=== PATIENT | female | born 1975 | race Hispanic/Latino ===

== ENCOUNTER → 2019-08-26 09:02 | Outpatient (CLI) | payer BC, SELFPAY ==
[2019-08-26 11:25] LABS: Anion Gap 15 (5-15); BUN 8 mg/dL (7-18); BUN/Creat Ratio 11.8 RATIO (10-20); Calcium,Total 7.8 mg/dL (8.5-10.1); Chloride 96 mmol/L (98-107); Cholesterol 443 mg/dL (200); Creatinine, Serum 0.68 mg/dL (0.55-1.02); EST Glomerular Filtration Rate 99 mL/min (>60); Est Glom Filt Rate - Afr Amer 120 mL/min (>60); Glucose 339 mg/dL (74-106); High Density Lipoprotein 29 mg/dL; Potassium 3.3 mmol/L (3.5-5.1); Sodium Level 131 mmol/L (136-145); Thyroid Stim Hormone (TSH) 2.34 uIU/mL (0.358-3.74); Triglycerides 3397 mg/dL
== END ==
PROVIDERS: Family Provider Family Medicine; PCP Family Medicine; Referring Provider Family Medicine; Visit Provider Family Medicine
DX: Z00.00 Encounter for general adult medical examination without abnormal findings (principal)
CPT/HCPCS: 36415; 80048; 80061; 82306; 84443

== ENCOUNTER → 2021-01-28 08:21 | Outpatient (CLI) | payer SELFPAY ==
[2021-01-28 10:37] LABS: Anion Gap 9 (5-15); BUN 12 mg/dL (7-18); BUN/Creat Ratio 18.7 RATIO (10-20); Calcium,Total 8.9 mg/dL (8.5-10.1); Chloride 100 mmol/L (98-107); Cholesterol 196 mg/dL (200); Creatinine, Serum 0.64 mg/dL (0.55-1.02); EST Glomerular Filtration Rate 105 mL/min (>60); Est Glom Filt Rate - Afr Amer 127 mL/min (>60); Glucose 333 mg/dL (74-106); High Density Lipoprotein 33 mg/dL; Potassium 4.2 mmol/L (3.5-5.1); Sodium Level 137 mmol/L (136-145); Triglycerides 631 mg/dL
[2021-01-28 10:42] LABS: Microalbumin,Random Urine 19.5 mg/L (NO RANGE EST.); Microalbumin:Creatinine Ratio 33.8 mg/g CRE (<30 mg/g CRE)
== END ==
PROVIDERS: PCP Family Medicine; Visit Provider Family Medicine
DX: E11.9 Type 2 diabetes mellitus without complications (principal)
CPT/HCPCS: 36415; 80048; 80061; 82043; 82570

== ENCOUNTER 2021-08-08 16:43 | Emergency (ER) | payer SELFPAY ==
[2021-08-08 16:44] VITALS: BP 120/95; PULSE 95; RESP 16; TEMP 35.4; O2SAT 100; BMI 26.5
--- NOTE | 2021-08-08 17:07 | EKG12_ITS ---
Test Reason : CP Blood Pressure : / mmHG Vent. Rate : 081 BPM Atrial Rate : 081 BPM P-R Int : 152 ms QRS Dur : 062 ms QT Int : 352 ms P-R-T Axes : 051 032 010 degrees QTc Int : 408 ms Normal sinus rhythm Low voltage QRS Septal infarct , age undetermined , cannot be excluded Abnormal ECG Confirmed by YOSVANY HEREDIA, DEBBY ([id number]), production editor YOLIE WANG ([id number]) on 08/09/2021 10:48:53 AM Referred By: Confirmed By:DEBBY BAR MD
--- NOTE | 2021-08-08 17:07 | RAD_ITS ---
HISTORY: chest pain EXAMINATION/TECHNIQUE: XR Chest 1 View: Portable upright AP chest x-ray COMPARISON: None FINDINGS: LINES/DEVICES: None. LUNGS: No consolidation, edema or effusion. No pneumothorax. MEDIASTINUM AND CARDIOVASCULAR STRUCTURES: Cardiac silhouette not enlarged. Central airways and mediastinal contour are unremarkable. BONES AND SOFT TISSUES: No acute bony abnormalities. RAD/Chest 1 View (Portable) IMPRESSION: No radiographic evidence of acute cardiopulmonary disease. at 1814 Reported and signed by: Rk Marrero MD Electronically Signed: Rk Marrero MD at 18:13 EST Tel , Service support ,
[2021-08-08 17:10] VITALS: O2SAT 98
--- NOTE | 2021-08-08 17:10 | NURSING ---
NO OLD EKGS
[2021-08-08 17:34] LABS: Absolute Lymphocyte Count 2.55 X10^3/uL (0.83-4.51); Absolute Neutrophil Count 4.6 X10^3/uL (2.0-7.7); Basophil# 0.02 X10^3/uL; Basophil% 0.3 % (0-1); Eosinophil# 0.05 X10^3/uL; Eosinophils% 0.7 % (0-5); Hematocrit 42.2 % (37-47); Hemoglobin 14.7 g/dL (12.0-15.0); Lymphocyte # 2.55 X10^3/ul (0.83-4.51); Lymphocyte % 33.4 % (19-41); Mean Corp Hgb Conc 34.8 g/dL (32-36); Mean Corpuscular Hgb 29.3 pg (27.0-32.0); Mean Corpuscular Volume 84.2 fL (81-99); Mean Platelet Vol. 9.9 fl (6.2-12.0); Monocyte# 0.39 X10^3/uL; Monocyte% 5.1 % (0-10); NRBC Flagged by Analyzer 0 % (0-5); Neutrophil # 4.61 X10^3/uL (2.7-7.7); Neutrophil % 60.2 % (47-70); Platelet Count 290 K/mm3 (150-450); RBC Distribution Width SD 36.4 fl (35.1-43.9); Red Blood Count 5.01 M/mm3 (4.2-5.4); White Blood Count 7.6 K/mm3 (4.4-11.0)
[2021-08-08 17:42] LABS: Anion Gap 10 (5-15); BUN 12 mg/dL (7-18); BUN/Creat Ratio 19.1 RATIO (10-20); Calcium,Total 9.2 mg/dL (8.5-10.1); Chloride 99 mmol/L (98-107); Creatinine, Serum 0.63 mg/dL (0.55-1.02); EST Glomerular Filtration Rate 108 mL/min (>60); Est Glom Filt Rate - Afr Amer 131 mL/min (>60); Estimated Creatinine Clearance 87.31 ml/min; Glucose 351 mg/dL (74-106); Potassium 3.7 mmol/L (3.5-5.1); Sodium Level 134 mmol/L (136-145); Troponin-I HS 3 pg/mL (3.0-54.0)
--- NOTE | 2021-08-08 18:06 | ED.VIS.CHEST ---
HPI History of Present Illness Chief Complaint: Chest Pain Narrative Narrative: 45-year-old female with history of diabetes and high cholesterol presenting with sharp chest pain retrosternally which does not radiate. She does admit to some shortness of breath with this. The pain has been constant for 3 days. Patient has no history of DVT/PE. She has not had any recent travel or surgery. No recent immobilization. No history of DVT or PE, no history of cancer in her. She is not on control or exogenous hormones. [facility] Medical History Diabetes Home Medications metformin 1,000 mg PO DAILY 08/08/21 [History Last Taken Unknown] rosuvastatin 20 mg PO DAILY 08/08/21 [History Last Taken Unknown] Allergy/AdvReac Type Severity Reaction Status Date / Time No Known Allergies Allergy Verified 08/08/21 16:47 Surgical History History of cholecystectomy Social History Smoking Status: Never smoker ROS ROS ED Constitutional Constitutional ED: Denies chills, fever(s) or weight loss Eyes Eyes: Denies blurry vision or change in vision ENT ENT ED: Denies rhinorrhea or sore throat Cardiovascular Cardiovascular: Reports as per HPI Respiratory/Chest Respiratory/Chest: Reports dyspnea; Denies cough or dyspnea on exertion Gastrointestinal Gastrointestinal: Denies abdominal pain, nausea or vomiting Genitourinary Genitourinary ED: Denies dysuria or hematuria Musculoskeletal Musculoskeletal: Denies arthralgias or myalgias Integumentary Denies Abrasions or rash Neurologic Neurologic: Denies headache(s) or paresthesias Psychiatric Psychiatric: Denies anxiety or depression EXAM Physical Exam Const Vital Signs: 08/08/21 16:44 08/08/21 17:10 08/08/21 19:06 Temperature 95.8 F L Temperature Source Temporal Pulse Rate 95 83 Respiratory Rate 16 18 Blood Pressure 120/95 H 113/75 Blood Pressure Mean 103 87 Pulse Ox 100 98 98 Oxygen Delivery Method Room Air Room Air Positive obese General Appearance ED: NAD; Negative for pallor Nutritional Appearance: obese HEENT Reports moist mucous membranes normocephalic and atraumatic Eyes PERRL and EOMs intact bilaterally Resp normal respiratory effort Effort and Inspection: respiratory distress Cardio regular rate and regular rhythm Extremity normal to inspection General Extremety ED: Negative for edema or tenderness General Extremity: Negative for edema Neuro oriented x3 Sensorium / Orientation: awake and alert Psych mental status grossly normal Skin General Skin Exam: Negative for jaundice or pallor Heart Score History: Slightly/Non-Suspicious ECG: Normal Age: </= 45 years Risk Factors: 1 or 2 Risk Factors Troponin: </= Normal Limit Score: 1 MDM MDM MDM Narrative Medical decision making narrative: Patient presenting with sharp chest pain in the upper chest wall on the left without radiation. EKG is performed and on my interpretation shows a normal sinus rhythm with a potential rate of 81 bpm without sign of ischemic change. Chest x-ray on my interpretation shows no acute cardiopulmonary process and the radiologist does agree. CBC and CMP are unremarkable with exception of elevated glucose at 351. D-dimer is negative. High-sensitivity troponin is 3 and since he has been having pain constantly for 3 days this rules her out for ACS. I feel the patient was stable for discharge at this time. She can follow-up with her PCP Dr. Noel. She is given return precautions. Impression: 1. Chest pain noncardiac Lab Data Labs: Laboratory Results - last 24 hr 08/08/21 08/08/21 08/08/21 17:15 17:15 17:15 WBC 7.6 RBC 5.01 Hgb 14.7 Hct 42.2 MCV 84.2 MCH 29.3 MCHC 34.8 RDW Std Deviation 36.4 RDW Coeff of Joseluis 12.0 Plt Count 290 MPV 9.9 Immature Gran % (Auto) 0.300 Neut % (Auto) 60.2 Lymph % (Auto) 33.4 [place] % (Auto) 5.1 Eos % (Auto) 0.7 Baso % (Auto) 0.3 Absolute Neuts (auto) 4.6 Absolute Lymphs (auto) 2.55 Nucleated RBC % 0 PT 12.2 INR 1.0 D-Dimer Quant (PE/DVT) Sodium 134 L Potassium 3.7 Chloride 99 Carbon Dioxide 25.0 Anion Gap 10 BUN 12 Creatinine 0.63 Estim Creat Clear Calc 87.31 Est GFR (MDRD) Af Amer 131 Est GFR (MDRD) Non-Af 108 BUN/Creatinine Ratio 19.1 Glucose 351 H Calcium 9.2 Troponin I High Sens 3 12/16/21 17:15 WBC RBC Hgb Hct MCV MCH MCHC RDW Std Deviation RDW Coeff of Joseluis Plt Count MPV Immature Gran % (Auto) Neut % (Auto) Lymph % (Auto) [place] % (Auto) Eos % (Auto) Baso % (Auto) Absolute Neuts (auto) Absolute Lymphs (auto) Nucleated RBC % PT INR D-Dimer Quant (PE/DVT) < 0.27 L Sodium Potassium Chloride Carbon Dioxide Anion Gap BUN Creatinine Estim Creat Clear Calc Est GFR (MDRD) Af Amer Est GFR (MDRD) Non-Af BUN/Creatinine Ratio Glucose Calcium Troponin I High Sens Radiography Diagnostic Testing: Clinical Impression(s) from Imaging Studies Chest X-Ray 08/08/21 17:07 IMPRESSION: No radiographic evidence of acute cardiopulmonary disease. at 1814 Reported and signed by: Rk Marrero MD Electronically Signed: Rk Marrero MD at 18:13 EST Tel , Service support , Discharge Plan Triage Chief Complaint: Chest Pain ED Provider: Chepe Poon Dx/Rx/DC Orders Instructions: ED Chest Pain, Noncardiac Prescriptions: No Action metformin 1,000 mg tablet 1,000 mg PO DAILY RF: 0 rosuvastatin 20 mg tablet 20 mg PO DAILY RF: 0 Primary Care Provider: Esteban Noel Referrals: Esteban Noel MD [Primary Care Provider] - Disposition Disposition: Home, Self Care
[2021-08-08 18:10] LABS: Prothrombin Time (Protime)PT. 12.2 SECONDS (11.7-14.9)
[2021-08-08 18:51] LABS: D-Dimer Quantitative (DVT/PE) < 0.27 FEU/ug/m (0.27-0.49)
[2021-08-08 19:06] VITALS: BP 113/75; PULSE 83; RESP 18; O2SAT 98
== END 2021-08-08 19:49 | disposition home or self-care (01) ==
PROVIDERS: Emergency Provider Student in an Organized Health Care Education/Training Program; PCP Family Medicine
DX: R07.89 Other chest pain (principal); E11.9 Type 2 diabetes mellitus without complications; E78.00 Pure hypercholesterolemia, unspecified; Z79.84 Long term (current) use of oral hypoglycemic drugs; Z79.899 Other long term (current) drug therapy
CPT/HCPCS: 71045; 80048; 84484; 85025; 85379; 85610; 87426; 93005; 99283

== ENCOUNTER 2021-08-29 11:17 | Outpatient (CLI) | payer MEDICARE, SELFPAY | END 2021-08-29 23:59 | disposition short-term general hospital (02) | LOC: LABSPEC 11:18 | PROVIDERS: PCP Family Medicine; Referring Provider Physician Assistant; Visit Provider Physician Assistant | DX: U07.1 COVID-19 (principal) | CPT/HCPCS: 87635; U0003; U0005 ==

== ENCOUNTER 2021-11-14 13:05 | Emergency (ER) | payer BC, SELFPAY ==
[2021-11-14 13:06] VITALS: BP 114/74; PULSE 120; RESP 16; TEMP 36.6; O2SAT 98; BMI 25.6
[2021-11-14 13:07] VITALS: BP 114/74; PULSE 120; RESP 16; TEMP 36.6; O2SAT 98
--- NOTE | 2021-11-14 15:05 | CT_ITS ---
EXAM: CT ABDOMEN AND PELVIS WITH INTRAVENOUS CONTRAST CLINICAL INDICATION: upper abd pain TECHNIQUE: Helically acquired images were obtained of the abdomen and pelvis with intravenous contrast. This CT exam was performed using one or more of the following dose reduction techniques: automated exposure control, adjustment of the mA and/or kV according to patient size, and/or use of iterative reconstruction technique. This report was created using [employer] report generation technology. CONTRAST: IV 100mL Isovue-300 COMPARISON: None. FINDINGS: LOWER THORAX: Unremarkable. Lung bases are clear. No cardiomegaly. No significant pericardial effusion. ABDOMEN: LIVER: Unremarkable. Homogeneous. No focal mass. GALLBLADDER AND BILE DUCTS: Gallbladder is surgically absent. No intra- or extrahepatic biliary ductal dilation. PANCREAS: Unremarkable. No focal cystic or solid mass. SPLEEN: Unremarkable. Normal size without focal cystic or solid mass. ADRENALS: Unremarkable. No nodules. KIDNEYS AND URETERS: Unremarkable. Normal renal size and position. No hydronephrosis. STOMACH AND BOWEL: Unremarkable. No stomach or bowel distention. No focal inflammatory change. PELVIS: APPENDIX: No evidence of acute appendicitis. BLADDER: Unremarkable. REPRODUCTIVE: Unremarkable as visualized. No mass. ABDOMEN and PELVIS: INTRAPERITONEAL SPACE: Unremarkable. No ascites or other fluid collection. No free air. BONES/JOINTS: Unremarkable. No suspicious lytic or blastic abnormality. SOFT TISSUES: Unremarkable. No discrete abdominal or pelvic wall hernia. VASCULATURE: Unremarkable. Abdominal aorta is normal in caliber. LYMPH NODES: Unremarkable. No enlarged lymph nodes. CT/Abdomen/Pelvis W IV Cont ONLY IMPRESSION: No acute findings in the abdomen or pelvis. Electronically Signed: Dimple Toro MD at 16:32 EDT Reading Location ID and State: [id number] / Tel , Service support ,
--- NOTE | 2021-11-14 15:07 | ED.VIS.GI ---
HPI HPI - GI History of Present Illness Chief Complaint: Abd Pain Informant: patient Abdominal Pain/Flank Pain Onset: Days Context: Gradual Onset Timing: Continuous Quality: Aching Location: Epigastric Current Severity: Mild Maximum Severity: Moderate Worsened by: Nothing Relieved by: Nothing Nausea/Vomiting/Emesis GI Symptom: Positive for Nausea and Vomiting Onset: Days Severity: Mild Diarrhea/Melena/Hematochezia GI Symptom: Positive for Diarrhea Onset: Days Stool Quality: Positive for Loose Severity: Mild Narrative Narrative: 46-year-old female history of diabetes prior cholecystectomy and prior C-sections. Complain of abdominal pain with nausea vomiting diarrhea for about a week. Says nausea vomiting diarrhea is improved but he still has the pain. Denies any melena or hematemesis. No fever. Has had pain like this before but is never been evaluated. She denies any trauma. She denies any dysuria. Prior similar symptoms: Yes Recent Illness/Hospitalization: No PFSH PFSH Medical History Diabetes Home Medications metformin 1,000 mg PO DAILY 08/08/21 [History Last Taken Unknown] rosuvastatin 20 mg PO DAILY 08/08/21 [History Last Taken Unknown] pantoprazole [Protonix] 40 mg PO DAILY #30 tab 11/14/21 [Rx Last Taken Unknown] Allergy/AdvReac Type Severity Reaction Status Date / Time No Known Allergies Allergy Verified 11/14/21 13:08 Surgical History History of cholecystectomy Social History Smoking Status: Never smoker ROS ROS ED ROS Narrative Abdominal pain. Nausea vomiting and diarrhea. Review of Systems ROS Unobtainable: Denies due to encephalopathy Constitutional Constitutional ED: Denies fever(s) ENT ENT ED: Denies ear pain Cardiovascular Cardiovascular: Denies chest pain Respiratory/Chest Respiratory/Chest: Denies dyspnea Gastrointestinal Gastrointestinal: Reports abdominal pain, diarrhea, nausea and vomiting; Denies constipation or melena Genitourinary Genitourinary ED: Denies dysuria Musculoskeletal Musculoskeletal: Denies myalgias Integumentary Denies rash Neurologic Neurologic: Denies headache(s) Psychiatric Psychiatric: Denies depression Endocrine Endocrinology: Denies polyuria Hematologic/Lymphatic Hematologic/Lymphatic: Denies easy bruising Allergic/Immunologic Allergic/Immunologic ED: Denies urticaria EXAM Physical Exam Narrative Exam Narrative: 46-year-old female no acute distress. Vital signs stable afebrile does not look septic or toxic. H EENT exam unremarkable. Neck nontender no lymphadenopathy. Lungs clear to auscultation bilaterally. Heart tachycardic rate about 110 no murmur. Abdomen soft nondistended normal bowel sounds no peritoneal signs. Diffusely tender mostly in the epigastric region. No hernia or mass no obstruction. No pulsatile mass. Moving all 4 extremities. Nontender no edema. Normal motor strength. Back nontender. Neurologically she is awake and alert. Const Vital Signs: 11/14/21 13:06 11/14/21 13:07 11/14/21 15:41 Temperature 97.8 F 97.8 F Temperature Source Temporal Temporal Pulse Rate 120 H 120 H 111 H Respiratory Rate 16 16 18 Blood Pressure 114/74 114/74 102/64 Blood Pressure Mean 87 87 76 Pulse Ox 98 98 95 Oxygen Delivery Method Room Air Room Air Room Air Positive well nourished and well developed; Negative for obese, cachectic, contractures or unkempt General Appearance ED: well developed and NAD; Negative for unkempt, cachectic, contractures or pallor Nutritional Appearance: Negative for cachectic or obese HEENT Reports moist mucous membranes normocephalic and atraumatic; Negative for trauma or tenderness Eyes PERRL and EOMs intact bilaterally Neck no lymphadenopathy, supple and no JVD General: Negative for tenderness Resp normal respiratory effort and clear to auscultation bilaterally Auscultation: Negative for rales, rhonchi or wheezes Cardio regular rhythm, S1 normal heart sound, S2 normal heart sound and no murmurs; Negative for regular rate Rate: tachycardic GI non-distended and no masses; Negative for non-tender Inspection: Negative for abdominal distention Auscultation: normoactive bowel sounds; Negative for hyperactive bowel sounds or hypoactive bowel sounds Palpation: soft and tender; Negative for guarding, rigid or rebound tenderness present Back/Spine no CVA tenderness General Back: Negative for CVA tenderness Cervical Spine: Negative for cervical spine tenderness Thoracic Spine / Upper Back: Negative for thoracic spinal tenderness Extremity full ROM General Extremety ED: Negative for edema or tenderness General Extremity: Negative for edema Neuro CN's II-XII intact bilaterally and moves all extremities Sensorium / Orientation: alert, oriented to person, oriented to place and oriented to time; Negative for orientation impaired, confused, lethargic or stuporous Motor Exam: strength 5/5 throughout Psych mental status grossly normal and thought process normal Appearance: Negative for unkempt Mood & Affect: Negative for depressed or tearful Skin no wounds General Skin Exam: Negative for jaundice or pallor Lesions: no lesions Rashes: no rashes MDM MDM MDM Narrative Medical decision making narrative: 46-year-old female with diffuse abdominal pain primarily epigastric. Consider pancreatitis versus gastritis etiologies. CAT scan labs pending. Treated with morphine and Zofran for pain and nausea and IV fluids. Repeat exam patient is doing well at 4:58 PM. Abdomen is benign. Her labs and CAT scan are unremarkable. She will be started on Protonix for possible gastritis. Follow-up with her primary care physician. Lab Data Attestation: I reviewed the patient's lab results. Lab results narrative: CBC H&H 14 and 40. Electrolytes sodium 134. Potassium 3.4. Gap of 8. BUN and creatinine of 14 and 0.6. Liver enzymes show an elevated AST of 161 ALT of 112 alk phos of 185. Total bilirubin is normal. Lipase normal 62. test negative. Labs: Laboratory Results - last 24 hr 11/14/21 11/14/21 11/14/21 15:25 15:25 15:25 WBC 6.8 RBC 4.82 Hgb 14.1 Hct 40.9 MCV 84.9 MCH 29.3 MCHC 34.5 RDW Std Deviation 38.4 RDW Coeff of Joseluis 12.5 Plt Count 254 MPV 9.5 Immature Gran % (Auto) 0.300 Neut % (Auto) 82.6 H Lymph % (Auto) 13.0 L [place] % (Auto) 3.9 Eos % (Auto) 0.1 Baso % (Auto) 0.1 Absolute Neuts (auto) 5.6 Absolute Lymphs (auto) 0.88 Nucleated RBC % 0 Sodium 134 L Potassium 3.4 L Chloride 97 L Carbon Dioxide 29.0 Anion Gap 8 BUN 14 Creatinine 0.67 Estim Creat Clear Calc 81.22 Est GFR (MDRD) Af Amer 121 Est GFR (MDRD) Non-Af 100 BUN/Creatinine Ratio 21.0 H Glucose 256 H Calcium 8.7 Total Bilirubin 0.60 AST 161 H ALT 112 H Alkaline Phosphatase 185 H Total Protein 7.8 Albumin 3.8 Globulin 4.0 Albumin/Globulin Ratio 1.0 Lipase 62 L Serum , Qual NEGATIVE Radiography Diagnostic Testing: Clinical Impression(s) from Imaging Studies Abdomen/Pelvis CT 11/14/21 15:05 IMPRESSION: No acute findings in the abdomen or pelvis. Electronically Signed: Dimple Toro MD at 16:32 EDT , Discharge Plan Triage Chief Complaint: Abd Pain ED Provider: Liu Graham Dx/Rx/DC Orders Clinical Impression: Abdominal pain, Gastritis Instructions: ED Abdominal Pain Unkn Cause Fem, ED Gastritis (Adult) Prescriptions: New pantoprazole [Protonix] 40 mg tablet,delayed release (DR/EC) 40 mg PO DAILY Qty: 30 RF: 0 No Action metformin 1,000 mg tablet 1,000 mg PO DAILY RF: 0 rosuvastatin 20 mg tablet 20 mg PO DAILY RF: 0 Primary Care Provider: Esteban Noel Referrals: Esteban Noel MD [Primary Care Provider] - 1 Week if not improving Activity Restrictions/Additional Instructions: Your labs and CAT scan today were normal. This may be secondary to gastritis. Take the medication Protonix once a day and follow-up with your doctor if not improving. Disposition Disposition: Home, Self Care
[2021-11-14] MEDS: Ondansetron 4 MG/2 ML Vial IV (15:34)
[2021-11-14] MEDS: Morphine 4 MG/ML Syringe 6 MG IV (15:34)
[2021-11-14] MEDS: 0.9% Normal Saline 1,000 ML 1000 ML IV (15:35)
[2021-11-14 15:41] VITALS: BP 102/64; PULSE 111; RESP 18; O2SAT 95
[2021-11-14 15:44] LABS: Absolute Lymphocyte Count 0.88 X10^3/uL (0.83-4.51); Absolute Neutrophil Count 5.6 X10^3/uL (2.0-7.7); Basophil# 0.01 X10^3/uL; Basophil% 0.1 % (0-1); Eosinophil# 0.01 X10^3/uL; Eosinophils% 0.1 % (0-5); Hematocrit 40.9 % (37-47); Hemoglobin 14.1 g/dL (12.0-15.0); Lymphocyte # 0.88 X10^3/ul (0.83-4.51); Mean Corp Hgb Conc 34.5 g/dL (32-36); Mean Corpuscular Hgb 29.3 pg (27.0-32.0); Mean Corpuscular Volume 84.9 fL (81-99); Mean Platelet Vol. 9.5 fl (6.2-12.0); Monocyte# 0.26 X10^3/uL; Monocyte% 3.9 % (0-10); NRBC Flagged by Analyzer 0 % (0-5); Neutrophil # 5.57 X10^3/uL (2.7-7.7); Neutrophil % 82.6 % (47-70); Platelet Count 254 K/mm3 (150-450); RBC Distribution Width CV 12.5 % (11.6-14.6); RBC Distribution Width SD 38.4 fl (35.1-43.9); Red Blood Count 4.82 M/mm3 (4.2-5.4); White Blood Count 6.8 K/mm3 (4.4-11.0)
[2021-11-14 15:53] LABS: Internal QC Validated? YES +Cl - CLEAR BKGD; Pregnancy, Serum, hCG Quali. NEGATIVE Negative
[2021-11-14 16:00] LABS: AST(SGOT) 161 U/L (15-37); Alanine Aminotransfer ALT/SGPT 112 U/L (13-56); Albumin, Serum 3.8 g/dL (3.2-5.0); Alkaline Phosphatase 185 U/L (45-117); Anion Gap 8 (5-15); BUN 14 mg/dL (7-18); Calcium,Total 8.7 mg/dL (8.5-10.1); Chloride 97 mmol/L (98-107); Creatinine, Serum 0.67 mg/dL (0.55-1.02); EST Glomerular Filtration Rate 100 mL/min (>60); Est Glom Filt Rate - Afr Amer 121 mL/min (>60); Estimated Creatinine Clearance 81.22 ml/min; Glucose 256 mg/dL (74-106); Lipase 62 U/L (73-393); Potassium 3.4 mmol/L (3.5-5.1); Protein, Total 7.8 g/dL (6.4-8.2); Sodium Level 134 mmol/L (136-145)
[2021-11-14 17:02] LABS: Bacteria 0 SEEN /hpf (None Seen); Mucous, Urine 0 SEEN /hpf (<or=2+); Red Blood Cells-Urine 0 SEEN /hpf (0-5); White Blood Cells 0 SEEN /hpf (0-5)
[2021-11-14 17:07] LABS: Color, Urine Yellow (Yellow); Glucose, Dipstick 1000 mg/dl (Normal); Ketone-Dipstick 5 mg/dl (Negative); Leukocyte Esterase-Dipstick Negative /ul (Negative); Nitrite-Dipstick Negative (Negative); Occult Blood-Urine Negative /ul (Negative); Protein-Dipstick 15 mg/dl (Negative); Urine Bilirubin Dipstick Negative (Negative); Urine Clarity Sl. Cloudy (Clear); Urine Urobilinogen 4 mg/dl (Normal)
[2021-11-14 17:11] LABS: Squamous Epithelial Cells - UA 0-5 SEEN /hpf (5-10)
[2021-11-14 17:13] VITALS: BP 106/66; PULSE 97; RESP 18; O2SAT 97
== END 2021-11-14 17:18 | disposition home or self-care (01) ==
PROVIDERS: Emergency Provider Emergency Medicine; PCP Family Medicine; Visit Provider Emergency Medicine
DX: K29.70 Gastritis, unspecified, without bleeding (principal); E11.9 Type 2 diabetes mellitus without complications; R10.13 Epigastric pain; Z79.84 Long term (current) use of oral hypoglycemic drugs
CPT/HCPCS: 74177; 80053; 81001; 83690; 84703; 85025; 96361; 96374; 96375; 99285; J7030; Q9967; A4216; J2405

== ENCOUNTER 2021-11-15 11:24 | Outpatient (CLI) | payer BC, SELFPAY ==
[2021-11-15 13:03] LABS: HIV - WCH Non-Reactive (Nonreactive); Syphilis Antibodies Non-reactive
[2021-11-15 13:34] LABS: Chlamydia Trachomatis by PCR Negative (Negative); Neisserai gonorrhoeae by PCR Negative (Negative); Probe Check PASS; Sample Adequacy Control PASS; Specimen Processing Control PASS
[2021-11-16 09:10] LABS: HSV 2 IgG 7.55 index (0.00-0.90)
== END 2021-11-15 23:59 | disposition home or self-care (01) ==
LOC: MFPLAB 11:25
PROVIDERS: PCP Family Medicine; Referring Provider Family Medicine; Visit Provider Family Medicine
DX: Z20.2 Contact with and (suspected) exposure to infections with a predominantly sexual mode of transmission (principal)
CPT/HCPCS: 36415; 86695; 86696; 86703; 86780; 87491; 87591

== ENCOUNTER → 2023-04-20 | Outpatient (CLI) | payer SELFPAY | END | disposition home or self-care (01) | LOC: LABSPEC 15:34 | PROVIDERS: PCP Family Medicine; Referring Provider Family Medicine; Visit Provider Family Medicine | DX: L03.90 Cellulitis, unspecified (principal); L02.91 Cutaneous abscess, unspecified | CPT/HCPCS: 87070; 87077; 87186; 87205 ==

== ENCOUNTER → 2023-05-29 | Outpatient (CLI) | payer BC, SELFPAY ==
[2023-05-29 18:34] LABS: Anion Gap 6 (5-15); BUN 14 mg/dL (7-18); BUN/Creat Ratio 19.8 RATIO (10-20); Calcium,Total 9.1 mg/dL (8.5-10.1); Chloride 97 mmol/L (98-107); Cholesterol 239 mg/dL (200); Creatinine, Serum 0.71 mg/dL (0.55-1.02); EST Glomerular Filtration Rate 93 mL/min (>60); Est Glom Filt Rate - Afr Amer 113 mL/min (>60); Glucose 444 mg/dL (74-106); High Density Lipoprotein 35 mg/dL; Potassium 4.2 mmol/L (3.5-5.1); Sodium Level 133 mmol/L (136-145); Triglycerides 863 mg/dL
== END | disposition home or self-care (01) ==
LOC: MFPLAB 16:14
PROVIDERS: PCP Family Medicine; Visit Provider Family Medicine
DX: E11.9 Type 2 diabetes mellitus without complications (principal)
CPT/HCPCS: 36415; 80048; 80061

== ENCOUNTER → 2023-09-01 | Outpatient (CLI) | payer OTHER, SELFPAY ==
[2023-09-01 10:38] LABS: Hemoglobin A1c 8.5 % (3.8-5.6)
[2023-09-01 10:47] LABS: Anion Gap 9 (5-15); BUN 17 mg/dL (7-18); BUN/Creat Ratio 28.4 RATIO (10-20); Calcium,Total 9.1 mg/dL (8.5-10.1); Chloride 103 mmol/L (98-107); Cholesterol 275 mg/dL (200); EST Glomerular Filtration Rate 113 mL/min (>60); Est Glom Filt Rate - Afr Amer 137 mL/min (>60); Glucose 196 mg/dL (74-106); High Density Lipoprotein 36 mg/dL; Potassium 4.2 mmol/L (3.5-5.1); Sodium Level 139 mmol/L (136-145); Triglycerides 961 mg/dL
[2023-09-01 10:49] LABS: Microalbumin,Random Urine 20.3 mg/L (NO RANGE EST.); Microalbumin:Creatinine Ratio 22.5 mg/g CRE (<30 mg/g CRE)
== END | disposition home or self-care (01) ==
PROVIDERS: PCP Family Medicine; Referring Provider Family Medicine; Visit Provider Family Medicine
DX: E11.9 Type 2 diabetes mellitus without complications (principal)
CPT/HCPCS: 36415; 80048; 80061; 82043; 82570; 83036

== ENCOUNTER 2023-10-16 07:52 | Emergency (ER) | payer OTHER, SELFPAY ==
[2023-10-16 07:52] VITALS: BP 121/76; PULSE 122; RESP 20; TEMP 36.8; O2SAT 98; BMI 27.1
--- NOTE | 2023-10-16 07:55 | EKG12_ITS ---
Test Reason : CP Blood Pressure : / mmHG Vent. Rate : 114 BPM Atrial Rate : 114 BPM P-R Int : 142 ms QRS Dur : 074 ms QT Int : 322 ms P-R-T Axes : 054 019 030 degrees QTc Int : 443 ms Sinus tachycardia Otherwise normal ECG Confirmed by TASHI HEREDIA, MADALYN ([id number]), health editor YOLIE WANG ([id number]) on 10/16/2023 1:10:24 PM Referred By: BB Confirmed By:MADALYN AKINS MD
--- NOTE | 2023-10-16 08:02 | ED.VIS.CHEST ---
HPI History of Present Illness Chief Complaint: Chest Pain Informant: patient Onset/Context/Timing Onset: Today and Hours Activity at onset: gradual Timing: Continuous Quality: Positive for Dull Location: Substernal Current Severity: Mild Maximum Severity: Mild Relieved By: Nothing Associated Symptoms: Negative for Nausea, Vomiting, Diaphoresis, Dyspnea, Cough, Fever, Lightheadedness, Acid Reflux or Palpitations Narrative Narrative: 48-year-old female past medical history of diabetes and high triglycerides. No prior cardiac history. No history of DVT or PE risk factors. Denies hemoptysis. No pleuritic pain. No leg pain or swelling. No recent travel, surgery or immobilization. They states she was just getting ready for work this morning around 6 AM and developed dull midsternal chest discomfort. No radiation to her back neck or jaw. No dyspnea. No nausea or diaphoresis. She had this another time had a negative cardiac workup. She does not believe she is ever had a stress test or heart cath. She denies any recent exertional chest pain or exertional dyspnea. 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 Prior Similar Symptoms: Yes Recent Illness/Hospitalization: No CVD Risk Factors: Positive for Diabetes; Negative for Hypertension PE Risk Factors: Negative for Recent Travel/Surgery, Recent Immobilization, Prior DVT or PE, Cancer or OCP + Smoking + >/=35 TAD Risk Factors: Negative for Marfan's Syndrome [facility] Medical History Diabetes Home Medications metformin 1,000 mg tablet 1,000 mg PO DAILY 08/08/21 [History Last Taken Unknown] rosuvastatin 20 mg tablet 20 mg PO DAILY 08/08/21 [History Last Taken Unknown] pantoprazole 40 mg tablet,delayed release (Protonix) 40 mg PO DAILY #30 tabs 11/14/21 [Rx Last Taken Unknown] Allergy/AdvReac Type Severity Reaction Status Date / Time No Known Allergies Allergy Verified 11/14/21 13:08 Surgical History History of cholecystectomy Social History Smoking Status: Never smoker ROS ROS ED ROS Narrative Denies recent illness. Review of Systems ROS Unobtainable: Denies due to encephalopathy Constitutional Constitutional ED: Denies chills or fever(s) Eyes Eyes: Reports none ENT ENT ED: Denies ear pain Cardiovascular Cardiovascular: Reports as per HPI and chest pain; Denies palpitations or racing heartbeat Respiratory/Chest Respiratory/Chest: Denies cough, dyspnea or dyspnea on exertion Gastrointestinal Gastrointestinal: Denies abdominal pain Genitourinary Genitourinary ED: Denies dysuria or hematuria Musculoskeletal Musculoskeletal: Denies arthralgias Integumentary Denies abscess or Abrasions Neurologic Neurologic: Denies headache(s) Psychiatric Psychiatric: Denies anxiety or depression Endocrine Endocrinology: Denies cold intolerance Hematologic/Lymphatic Hematologic/Lymphatic: Denies easy bleeding, easy bruising or lymphadenopathy Allergic/Immunologic Allergic/Immunologic ED: Denies mouth swelling, tongue swelling or urticaria EXAM Physical Exam Narrative Exam Narrative: Well-appearing 48-year-old female. Vital signs stable afebrile. Pulse ox 90% on room air no signs hypoxia. H EENT exam unremarkable. Neck nontender no JVD. Lungs clear to auscultation bilaterally. Heart tachycardic rate about 110 no murmur. Chest wall reproducible parasternal chest discomfort. No ecchymosis or bruising. No redness or warmth. Normal visualization of the chest. Ribs nontender. Abdomen soft nontender. Moving all 4 extremities. Calves are nontender without edema or cords. Equal symmetrical radial pulses. Back nontender. Neurologically she is awake alert no focal motor deficits. Answering questions following commands. Const Vital Signs: 10/16/23 07:52 10/16/23 08:02 10/16/23 09:00 Temperature 98.3 F Temperature Source Temporal Pulse Rate 122 H 96 Respiratory Rate 20 H 16 Blood Pressure 121/76 H 106/71 Blood Pressure Mean 91 82 Pulse Ox 98 97 Oxygen Delivery Method Room Air Room Air Room Air 10/16/23 10:21 Temperature Temperature Source Pulse Rate 95 Respiratory Rate 16 Blood Pressure 108/78 Blood Pressure Mean 88 Pulse Ox 96 Oxygen Delivery Method Room Air Positive well nourished and well developed; Negative for cachectic, contractures or unkempt General Appearance ED: well developed and NAD; Negative for unkempt, cachectic, contractures or pallor Nutritional Appearance: Negative for cachectic HEENT Reports moist mucous membranes normocephalic and atraumatic; Negative for trauma or tenderness Eyes PERRL and EOMs intact bilaterally General Eye ED: Negative for pale conjunctiva or scleral icterus Neck no lymphadenopathy, supple and no JVD General: Negative for tenderness Chest Wall inspection of chest normal and palpation of chest normal Chest: Negative for tenderness Resp normal respiratory effort and clear to auscultation bilaterally Effort and Inspection: Negative for respiratory distress Auscultation: Negative for rales, rhonchi or wheezes Cardio regular rate, regular rhythm, S1 normal heart sound, S2 normal heart sound and no murmurs Rate: Negative for bradycardia or tachycardic Rhythm: Negative for abnormal rhythm Peripheral Pulses: pulses 2+ throughout GI normal to inspection, nondistended, normoactive bowel sounds, soft to palpation, non-tender, non-distended and no masses Auscultation: Negative for hyperactive bowel sounds Palpation: Negative for splenomegaly or mass Back/Spine no CVA tenderness and no thoracic nor lumbar tenderness General Back: Negative for CVA tenderness Cervical Spine: Negative for cervical spine tenderness Extremity normal to inspection General Extremety ED: Negative for edema, pulses abnormal or tenderness General Extremity: Negative for edema or pulses abnormal Neuro oriented x3 and CN's II-XII intact bilaterally Sensorium / Orientation: awake, oriented to person, oriented to place and oriented to time; Negative for confused, lethargic or stuporous Motor Exam: strength 5/5 throughout Psych mental status grossly normal Appearance: Negative for unkempt Attitude: No agitated Mood & Affect: Negative for depressed, anxious or tearful Skin no rashes or lesions noted and no wounds General Skin Exam: Negative for jaundice or pallor Rashes: No rashes noted Trauma: Negative for abrasion or laceration Heart Score History: Slightly/Non-Suspicious ECG: Normal Age: >45 - <65 years Risk Factors: 1 or 2 Risk Factors Troponin: </= Normal Limit Score: 2 MDM MDM MDM Narrative Medical decision making narrative: 48-year-old female diabetic and triglycerides with nonexertional reproducible chest wall discomfort today. She undergo cardiac workup. There is definitely reproducible chest wall component to this. She has no DVT or PE risk factors. Repeat exam patient is doing well. She will be discharged home. I went over all of her test results with her. History & Record Review Discussion w/independent historian: Patient Additional record(s) reviewed:: Prior inpatient record, Prior outpatient record, Prior ED visit and Prior labs Lab Data Attestation: I reviewed the patient's lab results. Lab results narrative: CBC normal. White count of 10. H&H 14 and 42. Platelets 319. Electrolytes normal. Gap 7. Normal BUN and creatinine. Glucose 249 patient is a known diabetic. Initial troponin 4. 2-hour troponin less than 3. Labs: Laboratory Results - last 24 hr 10/16/23 10/16/23 07:58 10:15 WBC 10.7 RBC 5.07 Hgb 14.0 Hct 42.1 MCV 83.0 MCH 27.6 MCHC 33.3 RDW Std Deviation 37.5 RDW Coeff of Joseluis 12.6 Plt Count 319 MPV 9.4 Immature Gran % (Auto) 0.300 Neut % (Auto) 62.0 Lymph % (Auto) 31.6 [place] % (Auto) 4.9 Eos % (Auto) 0.7 Baso % (Auto) 0.5 Absolute Neuts (auto) 6.6 Absolute Lymphs (auto) 3.38 Nucleated RBC % 0 Sodium 138 Potassium 3.8 Chloride 104 Carbon Dioxide 27.0 Anion Gap 7 BUN 14 Creatinine 0.68 Estim Creat Clear Calc 89.09 Est GFR (MDRD) Af Amer 118 Est GFR (MDRD) Non-Af 98 BUN/Creatinine Ratio 20.7 H Glucose 249 H Calcium 9.1 Troponin I High Sens 4 < 3 L Radiography Chest X-Ray - ED: 1 View, Read by ED Physician, Read by Radiologist, Heart, Lungs, Mediastinum, Bony Structures and No Acute Disease Diagnostic Testing: Clinical Impression(s) from Imaging Studies Chest X-Ray 10/16/23 08:05 IMPRESSION: Normal x-ray examination of the chest. Electronically Signed: Jonnathan Beebe MD at 8:31 EST , Chest x-ray, portable, single view interpreted both myself and radiologist no acute abnormality. Normal. Normal cardiac silhouette. Normal lungs. Normal mediastinum. Rhythm Strip Rhythm Strip: Sinus Tach Rate: 114 Ectopy: None EKG Initial EKG: Attestation: I personally reviewed and interpreted this EKG as follows: Interpretation: No Acute Injury Pattern and Sinus Tachycardia Comments: Sinus tachycardia rate of 114. No signs of ST elevation or depression. No [id number]. Discharge Plan Triage Chief Complaint: Chest Pain ED Provider: Liu Graham Dx/Rx/DC Orders Clinical Impression: Acute chest wall pain, History of diabetes mellitus, Chest pain Instructions: ED Chest Pain, Uncertain Cause Prescriptions: No Action metformin 1,000 mg tablet 1,000 mg PO DAILY Patient Comments: take 1 tablet by mouth twice a day rosuvastatin 20 mg tablet 20 mg PO DAILY Patient Comments: take 1 tablet by mouth once daily pantoprazole [Protonix] 40 mg tablet,delayed release (DR/EC) 40 mg PO DAILY Qty: 30 0RF Primary Care Provider: Esteban Noel Referrals: Esteban Noel MD [Primary Care Provider] - As Needed Activity Restrictions/Additional Instructions: Your labs are normal. No signs of heart attack. I think this is chest wall pain. Use Tylenol and Motrin should improve. Follow-up with your doctor if not improving or return if feeling a lot worse. Disposition Disposition: Home, Self Care
--- NOTE | 2023-10-16 08:05 | RAD_ITS ---
STUDY: X-RAY CHEST REASON FOR EXAM: Female, 48 years old. Chest pain TECHNIQUE: Single AP portable view of the chest. COMPARISON: Comparison is made with prior study dated August 08, 2021. FINDINGS: EKG electrodes are seen. The lungs are clear and expanded. Scattered calcified granulomas. There is no demonstrated pleural abnormality. Normal size heart. Normal mediastinum and aurea. Normal visualized pulmonary arteries. Normal visualized aortic arch and descending thoracic aorta. There are degenerative changes of the visualized thoracic spine. Normal visualized ribs, clavicles, and shoulders. There is no demonstrated abnormality of the visualized soft tissue structures of the upper abdomen. RAD/Chest 1 View (Portable) IMPRESSION: Normal x-ray examination of the chest. Electronically Signed: Jonnathan Beebe MD at 8:31 EST ,
[2023-10-16 08:07] LABS: Absolute Lymphocyte Count 3.38 X10^3/uL (0.83-4.51); Absolute Neutrophil Count 6.6 X10^3/uL (2.0-7.7); Basophil# 0.05 X10^3/uL; Basophil% 0.5 % (0-1); Eosinophil# 0.08 X10^3/uL; Eosinophils% 0.7 % (0-5); Hematocrit 42.1 % (37-47); Lymphocyte # 3.38 X10^3/ul (0.83-4.51); Lymphocyte % 31.6 % (19-41); Mean Corp Hgb Conc 33.3 g/dL (32-36); Mean Corpuscular Hgb 27.6 pg (27.0-32.0); Mean Platelet Vol. 9.4 fl (6.2-12.0); Monocyte# 0.53 X10^3/uL; Monocyte% 4.9 % (0-10); NRBC Flagged by Analyzer 0 % (0-5); Neutrophil # 6.64 X10^3/uL (2.7-7.7); Platelet Count 319 K/mm3 (150-450); RBC Distribution Width CV 12.6 % (11.6-14.6); RBC Distribution Width SD 37.5 fl (35.1-43.9); Red Blood Count 5.07 M/mm3 (4.2-5.4); White Blood Count 10.7 K/mm3 (4.4-11.0)
[2023-10-16 08:34] LABS: Anion Gap 7 (5-15); BUN 14 mg/dL (7-18); BUN/Creat Ratio 20.7 RATIO (10-20); Calcium,Total 9.1 mg/dL (8.5-10.1); Chloride 104 mmol/L (98-107); Creatinine, Serum 0.68 mg/dL (0.55-1.02); EST Glomerular Filtration Rate 98 mL/min (>60); Est Glom Filt Rate - Afr Amer 118 mL/min (>60); Estimated Creatinine Clearance 89.09 ml/min; Glucose 249 mg/dL (74-106); Potassium 3.8 mmol/L (3.5-5.1); Sodium Level 138 mmol/L (136-145); Troponin-I HS (w/2H Reflex) 4 pg/mL (3.0-54.0)
[2023-10-16 09:00] VITALS: BP 106/71; PULSE 96; RESP 16; O2SAT 97
[2023-10-16 10:03] LABS: Reflex Troponin-HS? (from REC) Y
[2023-10-16 10:21] VITALS: BP 108/78; PULSE 95; RESP 16; O2SAT 96
[2023-10-16 10:39] LABS: Troponin-I HS < 3 pg/mL (3.0-54.0)
[2023-10-16 10:58] VITALS: BP 110/69; PULSE 95; RESP 16; TEMP 36.8; O2SAT 99
== END 2023-10-16 10:59 | disposition home or self-care (01) ==
PROVIDERS: Emergency Provider Emergency Medicine; PCP Family Medicine; Visit Provider Emergency Medicine
DX: R07.89 Other chest pain (principal); E11.9 Type 2 diabetes mellitus without complications; Z79.84 Long term (current) use of oral hypoglycemic drugs
CPT/HCPCS: 71045; 80048; 84484; 85025; 93005; 99284; A4216

== ENCOUNTER → 2023-12-10 | Outpatient (CLI) | payer OTHER, SELFPAY ==
[2023-12-10 18:58] LABS: ALB/GLOB Ratio 0.9 RATIO (0.9-2.4); AST(SGOT) 13 U/L (15-37); Alanine Aminotransfer ALT/SGPT 23 U/L (13-56); Albumin, Serum 3.5 g/dL (3.2-5.0); Alkaline Phosphatase 106 U/L (45-117); Anion Gap 7 (5-15); BUN 10 mg/dL (7-18); BUN/Creat Ratio 15.3 RATIO (10-20); Calcium,Total 8.4 mg/dL (8.5-10.1); Chloride 102 mmol/L (98-107); Cholesterol 213 mg/dL (200); Creatinine, Serum 0.65 mg/dL (0.55-1.02); EST Glomerular Filtration Rate 102 mL/min (>60); Est Glom Filt Rate - Afr Amer 123 mL/min (>60); Glucose 260 mg/dL (74-106); High Density Lipoprotein 31 mg/dL; Potassium 3.5 mmol/L (3.5-5.1); Protein, Total 7.5 g/dL (6.4-8.2); Sodium Level 137 mmol/L (136-145); Triglycerides 884 mg/dL
== END | disposition home or self-care (01) ==
LOC: MFPLAB 16:41
PROVIDERS: PCP Family Medicine; Visit Provider Family Medicine
DX: E11.40 Type 2 diabetes mellitus with diabetic neuropathy, unspecified (principal)
CPT/HCPCS: 36415; 80053; 80061

== ENCOUNTER → 2024-03-28 | Outpatient (CLI) | payer OTHER, SELFPAY ==
[2024-03-28 18:09] LABS: ALB/GLOB Ratio 0.9 RATIO (0.9-2.4); AST(SGOT) 23 U/L (15-37); Alanine Aminotransfer ALT/SGPT 19 U/L (13-56); Albumin, Serum 3.5 g/dL (3.2-5.0); Alkaline Phosphatase 96 U/L (45-117); Anion Gap 8 (5-15); BUN 12 mg/dL (7-18); BUN/Creat Ratio 16.9 RATIO (10-20); Calcium,Total 8.5 mg/dL (8.5-10.1); Chloride 103 mmol/L (98-107); Cholesterol 169 mg/dL (200); Creatinine, Serum 0.71 mg/dL (0.55-1.02); EST Glomerular Filtration Rate 93 mL/min (>60); Est Glom Filt Rate - Afr Amer 112 mL/min (>60); Globulin 4.1 g/dL (2.2-4.2); Glucose 92 mg/dL (74-106); High Density Lipoprotein 37 mg/dL; Potassium 3.6 mmol/L (3.5-5.1); Protein, Total 7.6 g/dL (6.4-8.2); Sodium Level 138 mmol/L (136-145); Triglycerides 226 mg/dL; Very Low Density Lipoprotein 45 mg/dL (5-40)
[2024-03-28 18:19] LABS: Microalbumin,Random Urine 7.3 mg/L (NO RANGE EST.); Microalbumin:Creatinine Ratio 26.5 mg/g CRE (<30 mg/g CRE)
== END | disposition home or self-care (01) ==
LOC: MFPLAB 14:27
PROVIDERS: PCP Family Medicine; Visit Provider Family Medicine
DX: E11.40 Type 2 diabetes mellitus with diabetic neuropathy, unspecified (principal)
CPT/HCPCS: 36415; 80053; 80061; 82043; 82570

== ENCOUNTER → 2024-05-11 | Outpatient (CLI) | payer OTHER, SELFPAY ==
[2024-05-11 20:33] LABS: ALB/GLOB Ratio 0.8 RATIO (0.9-2.4); AST(SGOT) 22 U/L (15-37); Alanine Aminotransfer ALT/SGPT 28 U/L (13-56); Albumin, Serum 3.3 g/dL (3.2-5.0); Alkaline Phosphatase 94 U/L (45-117); Anion Gap 16 (5-15); BUN 15 mg/dL (7-18); BUN/Creat Ratio 19.5 RATIO (10-20); Chloride 97 mmol/L (98-107); Creatinine, Serum 0.77 mg/dL (0.55-1.02); EST Glomerular Filtration Rate 84 mL/min (>60); Est Glom Filt Rate - Afr Amer 102 mL/min (>60); Globulin 4.2 g/dL (2.2-4.2); Glucose 295 mg/dL (74-106); Potassium 4.1 mmol/L (3.5-5.1); Protein, Total 7.5 g/dL (6.4-8.2); Sodium Level 136 mmol/L (136-145)
== END | disposition home or self-care (01) ==
LOC: MFPLAB 15:01
PROVIDERS: PCP Family Medicine; Visit Provider Family Medicine
DX: E11.40 Type 2 diabetes mellitus with diabetic neuropathy, unspecified (principal)
CPT/HCPCS: 36415; 80053

== ENCOUNTER → 2024-06-22 | Outpatient (CLI) | payer OTHER, SELFPAY ==
[2024-06-22 15:28] LABS: Absolute Lymphocyte Count 2.37 X10^3/uL (0.83-4.51); Absolute Neutrophil Count 6.1 X10^3/uL (2.0-7.7); Basophil# 0.03 X10^3/uL; Basophil% 0.3 % (0-1); Eosinophil# 0.09 X10^3/uL; Hematocrit 42.2 % (37-47); Lymphocyte # 2.37 X10^3/ul (0.83-4.51); Lymphocyte % 26.3 % (19-41); Mean Corp Hgb Conc 33.2 g/dL (32-36); Mean Corpuscular Hgb 28.4 pg (27.0-32.0); Mean Corpuscular Volume 85.6 fL (81-99); Mean Platelet Vol. 9.8 fl (6.2-12.0); Monocyte# 0.42 X10^3/uL; Monocyte% 4.7 % (0-10); NRBC Flagged by Analyzer 0 % (0-5); Neutrophil # 6.05 X10^3/uL (2.7-7.7); Neutrophil % 67.3 % (47-70); Platelet Count 298 K/mm3 (150-450); RBC Distribution Width CV 13.5 % (11.6-14.6); RBC Distribution Width SD 42.1 fl (35.1-43.9); Red Blood Count 4.93 M/mm3 (4.2-5.4)
[2024-06-22 15:44] LABS: Anion Gap 6 (5-15); BUN 14 mg/dL (7-18); BUN/Creat Ratio 22.5 RATIO (10-20); Chloride 103 mmol/L (98-107); Creatinine, Serum 0.62 mg/dL (0.55-1.02); EST Glomerular Filtration Rate 107 mL/min (>60); Est Glom Filt Rate - Afr Amer 130 mL/min (>60); Glucose 276 mg/dL (74-106); Potassium 3.8 mmol/L (3.5-5.1); Sodium Level 136 mmol/L (136-145); Thyroid Stim Hormone (TSH) 0.848 uIU/mL (0.358-3.740)
== END | disposition home or self-care (01) ==
LOC: MFPLAB 12:22
PROVIDERS: PCP Family Medicine; Referring Provider Family Medicine; Visit Provider Family Medicine
DX: R53.83 Other fatigue (principal)
CPT/HCPCS: 36415; 80048; 84443; 85025

== ENCOUNTER 2024-08-05 11:04 | Emergency (ER) | payer OTHER, SELFPAY ==
[2024-08-05 11:05] VITALS: BP 117/73; PULSE 109; RESP 18; TEMP 36.6; O2SAT 100; BMI 28.0
--- NOTE | 2024-08-05 11:19 | EX.ED.DYSGE1 ---
HPI History of Present Illness Chief Complaint: Abd Pain Detail of Chief Complaint: Epigastric indigestion with nausea, vomiting and diarrhea Informant: patient Onset/Context/Timing Onset: Today (299) Context: Sudden Onset Timing: Continuous Quality: Indigestion/heartburn Location: Epigastrium central chest Current Severity: Mild Maximum Severity: Moderate Worsened by: Prior to vomiting Relieved by: Nothing Associated Symptoms Associated Symptoms: Nausea, vomiting diarrhea Narrative Narrative: Patient is a 48-year-old woman who awoke at 0300 with nausea, vomiting diarrhea. She has had 3 episodes of emesis and 3 episodes of diarrhea. She denies hematemesis or coffee-ground emesis. She denies black or maroon-colored stool. She denied blood or mucus in the diarrhea. She denies ill contacts. She denies fever, chills night sweats. She does have history of type 2 diabetes on metformin and Giardia, GERD and elevated cholesterol. She is on Protonix for her GERD. Patient's had this in the past. She does not recall what she was diagnosed with. She also endorses laparoscopic surgery in [place]. Uncertain what she had done. Patient denies shortness of breath, orthopnea or PND. Patient denies cough. Prior similar symptoms: Yes Recent Illness/Hospitalization: No (Last ER visit September 2023 for noncardiac chest pain) [facility] Medical History (Updated 08/05/24 @ 12:[address] Jeff Parra MD) Hypercholesterolemia Diabetes Home Medications ?Medication ?Instructions ?Recorded ?Last Taken ?Type metformin 1,000 mg tablet 1,000 mg PO DAILY 08/08/21 Unknown History rosuvastatin 20 mg tablet 20 mg PO DAILY 08/08/21 Unknown History pantoprazole 40 mg tablet,delayed 40 mg PO DAILY #30 tabs 11/14/21 Unknown Rx release (Protonix) ondansetron 4 mg disintegrating 4 mg PO Q8H PRN PRN Nausea #5 tabs 08/05/24 Unknown Rx tablet Allergy/AdvReac Type Severity Reaction Status Date / Time No Known Allergies Allergy Verified 11/14/21 13:08 Surgical History History of cholecystectomy Social History Smoking Status: Never smoker ROS ROS ED Constitutional Constitutional ED: Denies chills, fever(s), subjective, sweats or weight loss Eyes Eyes: Denies blurry vision or change in vision ENT ENT ED: Denies ear pain, rhinorrhea or sore throat Cardiovascular Cardiovascular: Reports chest pain and other Details: Chest pain with vomiting. ; Denies orthopnea, palpitations or racing heartbeat Respiratory/Chest Respiratory/Chest: Denies cough, dyspnea, dyspnea on exertion or orthopnea Gastrointestinal Gastrointestinal: Reports abdominal pain, diarrhea, nausea and vomiting; Denies constipation or melena Genitourinary Genitourinary ED: Denies dysuria, hematuria or urinary frequency Musculoskeletal Musculoskeletal: Denies arthralgias, back pain, myalgias or neck pain Integumentary Denies rash Neurologic Neurologic: Reports weakness; Denies headache(s) or paresthesias Endocrine Endocrinology: Denies cold intolerance or heat intolerance Hematologic/Lymphatic Hematologic/Lymphatic: Reports systems reviewed and no addt'l complaints, except as documented EXAM Physical Exam Const Vital Signs: 08/05/24 11:05 Temperature 97.9 F Temperature Source Oral Pulse Rate 109 H Respiratory Rate 18 Blood Pressure 117/73 Blood Pressure Mean 87 Pulse Ox 100 Oxygen Delivery Method Room Air Positive well nourished and well developed Constitutional Narrative: Vitals remarkable for heart rate of 109. General Appearance ED: well developed and NAD; Negative for pallor HEENT Reports dry mucous membranes HEENT Narrative: Head is atraumatic normocephalic. Ears normal. Nares patent. Posterior pharynx is normal. Mouth ED: Yes dry mucous membranes Mouth: dry mucous membranes Eyes PERRL and EOMs intact bilaterally General Eye ED: Negative for pale conjunctiva or scleral icterus Neck no lymphadenopathy, supple and no JVD Chest Wall inspection of chest normal and palpation of chest normal Resp normal respiratory effort and clear to auscultation bilaterally Cardio regular rhythm, S1 normal heart sound, S2 normal heart sound and no murmurs Rate: tachycardic GI non-distended and no masses; Negative for hepatosplenomegaly GI Narrative: Negative clinical Cabrera sign. Of note reviewing prior record indicates patient had a cholecystectomy. Inspection: Negative for abdominal distention Auscultation: hypoactive bowel sounds Palpation: soft and tender epigastric Back/Spine no CVA tenderness Extremity normal to inspection General Extremety ED: Negative for edema or tenderness General Extremity: Negative for edema Neuro oriented x3 and CN's II-XII intact bilaterally Sensorium / Orientation: alert Psych mental status grossly normal Mood & Affect: Negative for depressed or anxious Skin no rashes or lesions noted, no wounds and skin turgor normal Skin Narrative: Patient has evidence of dry skin. General Skin Exam: Negative for jaundice or pallor MDM MDM MDM Narrative Medical decision making narrative: Patient with epigastric pain with nausea, vomit diarrhea. Suspect this is due to viral gastroenteritis. Since she is diabetic we will obtain BMP to assess renal function, electrolytes and specifically evaluate for hypokalemia and CO2 anion gap along with glucose. UA was obtained to assess specific gravity and determine if there is evidence of ketones in the event that she has a anion gap with hyperglycemia. 1 L of normal saline was ordered. Zofran was ordered for her nausea and vomiting. History & Record Review Additional record(s) reviewed:: Prior ED visit (Documented under the HPI portion of the medical record.) and Prior labs Lab Data Labs: Laboratory Results - last 24 hr 08/05/24 11:18 WBC 10.2 RBC 5.22 Hgb 14.3 Hct 43.7 MCV 83.7 MCH 27.4 MCHC 32.7 RDW Std Deviation 41.4 RDW Coeff of Joseluis 13.4 Plt Count 334 MPV 9.2 Immature Gran % (Auto) 0.200 Neut % (Auto) 73.1 H Lymph % (Auto) 23.0 [place] % (Auto) 3.1 Eos % (Auto) 0.5 Baso % (Auto) 0.1 Absolute Neuts (auto) 7.4 Absolute Lymphs (auto) 2.34 Nucleated RBC % 0 Sodium 137 Potassium 3.7 Chloride 102 Carbon Dioxide 29.0 Anion Gap 6 BUN 13 Creatinine 0.64 Estim Creat Clear Calc 95.99 Est GFR (MDRD) Af Amer 126 Est GFR (MDRD) Non-Af 104 BUN/Creatinine Ratio 20.3 H Glucose 229 H Calcium 9.3 Treatment and Re-Evaluation :: Patient passed p.o. challenge. Plan is discharged home with prescription for Zofran ODT. Patient was informed that she should check her blood sugars more frequently. Blood sugar is elevated however her CO2 anion gap is normal. Discharge Plan Triage Chief Complaint: Abd Pain ED Provider: Jeff Parra Dx/Rx/DC Orders Clinical Impression: Nausea vomiting and diarrhea, Hypercholesterolemia, Acute dehydration, Type 2 diabetes mellitus with hyperglycemia, Sinus tachycardia, Adult BMI 28.0-28.9 kg/sq m, Heartburn Instructions: ED Diet Vomiting Diarrhea, ED Vomit Diarrhea Nons[place] Adult Prescriptions: New ondansetron 4 mg tablet,disintegrating 4 mg PO Q8H PRN PRN (Reason: Nausea) Qty: 5 0RF No Action metformin 1,000 mg tablet 1,000 mg PO DAILY Patient Comments: take 1 tablet by mouth twice a day rosuvastatin 20 mg tablet 20 mg PO DAILY Patient Comments: take 1 tablet by mouth once daily pantoprazole [Protonix] 40 mg tablet,delayed release (DR/EC) 40 mg PO DAILY Qty: 30 0RF Primary Care Provider: Esteban Noel Referrals: Esteban Noel MD [Primary Care Provider] - 1-2 Days if not improving Print Language: [place] Leone[place] Disposition Disposition: Home, Self Care
[2024-08-05] MEDS: 0.9% Normal Saline (1000mL) 1,000 ML 1000 ML IV (11:26)
[2024-08-05] MEDS: Ondansetron 4 MG/2 ML Vial IV (11:26)
[2024-08-05 11:31] LABS: Absolute Lymphocyte Count 2.34 X10^3/uL (0.83-4.51); Absolute Neutrophil Count 7.4 X10^3/uL (2.0-7.7); Basophil# 0.01 X10^3/uL; Basophil% 0.1 % (0-1); Eosinophil# 0.05 X10^3/uL; Eosinophils% 0.5 % (0-5); Hematocrit 43.7 % (37-47); Hemoglobin 14.3 g/dL (12.0-15.0); Lymphocyte # 2.34 X10^3/ul (0.83-4.51); Mean Corp Hgb Conc 32.7 g/dL (32-36); Mean Corpuscular Hgb 27.4 pg (27.0-32.0); Mean Corpuscular Volume 83.7 fL (81-99); Mean Platelet Vol. 9.2 fl (6.2-12.0); Monocyte# 0.32 X10^3/uL; Monocyte% 3.1 % (0-10); NRBC Flagged by Analyzer 0 % (0-5); Neutrophil # 7.43 X10^3/uL (2.7-7.7); Neutrophil % 73.1 % (47-70); Platelet Count 334 K/mm3 (150-450); RBC Distribution Width CV 13.4 % (11.6-14.6); RBC Distribution Width SD 41.4 fl (35.1-43.9); Red Blood Count 5.22 M/mm3 (4.2-5.4); White Blood Count 10.2 K/mm3 (4.4-11.0)
[2024-08-05 11:39] LABS: Anion Gap 6 (5-15); BUN 13 mg/dL (7-18); BUN/Creat Ratio 20.3 RATIO (10-20); Calcium,Total 9.3 mg/dL (8.5-10.1); Chloride 102 mmol/L (98-107); Creatinine, Serum 0.64 mg/dL (0.55-1.02); EST Glomerular Filtration Rate 104 mL/min (>60); Est Glom Filt Rate - Afr Amer 126 mL/min (>60); Estimated Creatinine Clearance 95.99 ml/min; Glucose 229 mg/dL (74-106); Potassium 3.7 mmol/L (3.5-5.1); Sodium Level 137 mmol/L (136-145)
[2024-08-05] MEDS: Loperamide 2 MG Capsule 4 MG PO (11:58)
[2024-08-05 12:55] VITALS: BP 117/73; PULSE 89; RESP 18; TEMP 36.6; O2SAT 100
== END 2024-08-05 12:59 | disposition home or self-care (01) ==
PROVIDERS: Emergency Provider Emergency Medicine; PCP Family Medicine; Visit Provider Emergency Medicine
DX: R11.2 Nausea with vomiting, unspecified (principal); E11.65 Type 2 diabetes mellitus with hyperglycemia; R19.7 Diarrhea, unspecified; R00.0 Tachycardia, unspecified; K21.9 Gastro-esophageal reflux disease without esophagitis; E86.0 Dehydration; E78.00 Pure hypercholesterolemia, unspecified; Z79.84 Long term (current) use of oral hypoglycemic drugs; Z79.899 Other long term (current) drug therapy
CPT/HCPCS: 80048; 85025; 96361; 96374; 99284; A4216; J2405

== ENCOUNTER 2024-09-15 15:52 | Observation (INO) | payer OTHER, SELFPAY ==
[2024-09-15] VITALS (7 sets, daily range): BP systolic 102–139; BP diastolic 56–85; PULSE 90–120; RESP 16–18; TEMP 36.6–37.3; O2SAT 97–100; BMI 27.3; BMI 26.6
--- NOTE | 2024-09-15 16:35 | EX.ED.DYSGE1 ---
HPI History of Present Illness Chief Complaint: Wound Informant: patient Narrative Narrative: Sent in by PCP for increasing lip swellings. Patient reports since Thursday. She is not on MARK inhibitor and ARB. She has been on Ozempic injection for years. Subjective fevers. Denies injuries. Notable trouble swallowing. She is a diabetic. Also reports she notes a bump on her right gluteal provide noticed over the last week she has had issues with the area in the past requiring surgical intervention. Prior similar symptoms: No PFSH PFSH Medical History Hypercholesterolemia Diabetes Home Medications ?Medication ?Instructions ?Recorded ?Last Taken ?Type duloxetine 60 mg capsule,delayed 60 mg PO QHS 09/15/24 09/12/24 History release empagliflozin 25 mg tablet 25 mg PO DAILY 09/15/24 09/12/24 History (Jardiance) glimepiride 4 mg tablet 4 mg PO BID 09/15/24 09/12/24 History insulin glargine 100 unit/mL (3 35 unit subcut QHS 09/15/24 09/12/24 History mL) subcutaneous pen (Lantus Solostar U-100 Insulin) omeprazole 40 mg capsule,delayed 40 mg PO DAILY 09/15/24 09/12/24 History release Allergy/AdvReac Type Severity Reaction Status Date / Time No Known Allergies Allergy Verified 09/15/24 15:54 Family History (Updated 09/15/24 @ 20:[address] Silver Hill MD) Other Diabetes Surgical History History of cholecystectomy Social History Smoking Status: Never smoker ROS ROS ED Constitutional Constitutional ED: Reports fever(s); Denies chills or sweats ENT ENT ED: Reports other Details: Left upper lip swelling ; Denies sore throat Cardiovascular Cardiovascular: Denies chest pain, leg edema, palpitations or racing heartbeat Respiratory/Chest Respiratory/Chest: Denies cough, dyspnea or dyspnea on exertion Gastrointestinal Gastrointestinal: Denies abdominal pain, diarrhea, nausea or vomiting Genitourinary Genitourinary ED: Denies dysuria, hematuria or urinary frequency Musculoskeletal Musculoskeletal: Denies back pain, extremity pain or neck pain Integumentary Reports abscess; Denies rash or wounds Neurologic Neurologic: Denies headache(s), paresthesias or weakness EXAM Physical Exam Const Vital Signs: 09/15/24 15:54 09/15/24 16:56 09/15/24 17:00 Temperature 97.9 F 98.5 F 98.5 F Temperature Source Oral Oral Oral Pulse Rate 120 H 103 H 103 H Respiratory Rate 16 16 18 Blood Pressure 139/85 H 108/65 106/65 Blood Pressure Mean 103 79 78 Pulse Ox 99 97 97 Oxygen Delivery Method Room Air Room Air Room Air 09/15/24 18:00 Temperature 97.8 F Temperature Source Oral Pulse Rate 98 Respiratory Rate 16 Blood Pressure 102/58 L Blood Pressure Mean 72 Pulse Ox 98 Oxygen Delivery Method Room Air Positive well nourished and well developed General Appearance ED: well developed and NAD HEENT Reports moist mucous membranes HEENT Narrative: Swelling left upper lip with induration palpated more laterally, area coming to ahead more at the edge of the lip. There is no active drainage. No tongue swelling. Airway patent. normocephalic and atraumatic Eyes General Eye ED: Yes normal appearance of both eyes Neck full ROM Chest Wall Chest: Negative for tenderness Resp normal respiratory effort and normal air movement Effort and Inspection: symmetric chest movement; Negative for respiratory distress Cardio regular rhythm and no murmurs Rate: tachycardic Peripheral Pulses: pulses 2+ throughout GI normal to inspection, nondistended, normoactive bowel sounds and non-tender Palpation: Negative for guarding or rebound tenderness present Extremity normal to inspection General Extremety ED: Negative for edema or tenderness General Extremity: Negative for edema Neuro oriented x3 and no sensory deficits noted Sensorium / Orientation: awake and alert Skin Skin Narrative: 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 Previous scars were noted. No cellulitic findings. MDM MDM MDM Narrative Medical decision making narrative: Interventions / MDM: Differential diagnosis: Left upper lip abscess, diabetic hyperglycemia Diagnosis considered but do not suspect: Diabetic ketoacidosis however labs within normal gap. My EKG interpretation: N/A Imaging independently reviewed and interpreted by myself: N/A External documents reviewed: N/A Test considered but not ordered:N/A ED course: Afebrile slight tachycardia. Exam concerns for infection abscess left upper lip. 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 Labs were checked. Will plan for needle decompression drainage. White count returned at 15,000 and glucose 639 normal gap. She is ordered for 2 L of fluid, she is ordered for 20 units of short acting Humalog. Discussing with her medications hard to clarify she states she is been switched over to Lantus 35 units at night for which she was doing Ozempic at 35 units at night. She states difficulty with insurance approval for Ozempic with her pain [id number]. However she does report she took Ozempic last night. She was written by her doctor for her Jardiance again for which she has not started. 1750: Procedure note with I&D. Written consent obtained. Skin cleansed with alcohol pad. 3 cc 1% lidocaine used for local analgesia with a wound. Scabbing was removed, 18-gauge needle inserted multiple directions to help break up loculations, slight expression noted exudative drainage, cultures were obtained. Additional expression of exudative drainage, swelling improved 50%. Patient tolerated procedure well. With patient's facial abscess with cultures pending white count and diabetic hyperglycemia, I will discuss with hospitalist for admission for IV antibiotics and monitoring. She was ordered for vancomycin and Ancef. I discussed with Dr. Hill for admission. Re-evaluation: stable Disposition discussed with patient/family/significant other: Patient Case discussed with consulting clinician: Hospitalist This note was generated with [employer] dictation software. It may contain incorrect words, spelling, and punctuation that were not noted in checking the note before signing. Lab Data Attestation: I reviewed the patient's lab results. Labs: Laboratory Results - last 24 hr 09/15/24 09/15/24 16:28 18:00 WBC 15.2 H RBC 5.20 Hgb 14.5 Hct 43.7 MCV 84.0 MCH 27.9 MCHC 33.2 RDW Std Deviation 39.6 RDW Coeff of Joseluis 12.9 Plt Count 277 MPV 9.6 Immature Gran % (Auto) 0.500 Neut % (Auto) 81.0 H Lymph % (Auto) 13.0 L [place] % (Auto) 4.8 Eos % (Auto) 0.4 Baso % (Auto) 0.3 Absolute Neuts (auto) 12.3 H Absolute Lymphs (auto) 1.97 Nucleated RBC % 0 Sodium 127 L Potassium 3.8 Chloride 94 L Carbon Dioxide 23.0 Anion Gap 10 BUN 12 Creatinine 1.09 H Estim Creat Clear Calc 55.80 Est GFR (MDRD) Af Amer 68 Est GFR (MDRD) Non-Af 56 L BUN/Creatinine Ratio 11.0 Glucose 639 H* Calcium 9.2 POC Glucose 440 H Discharge Plan Dx/Rx/DC Orders Clinical Impression: Abscess of lip, Hyperglycemia due to diabetes mellitus Disposition Disposition: Acute Care Hospital [facility] Discharge Date/Time: 09/15/24 18:52
[2024-09-15 16:37] LABS: Absolute Lymphocyte Count 1.97 X10^3/uL (0.83-4.51); Absolute Neutrophil Count 12.3 X10^3/uL (2.0-7.7); Basophil# 0.05 X10^3/uL; Basophil% 0.3 % (0-1); Eosinophil# 0.06 X10^3/uL; Eosinophils% 0.4 % (0-5); Hematocrit 43.7 % (37-47); Hemoglobin 14.5 g/dL (12.0-15.0); Lymphocyte # 1.97 X10^3/ul (0.83-4.51); Mean Corp Hgb Conc 33.2 g/dL (32-36); Mean Corpuscular Hgb 27.9 pg (27.0-32.0); Mean Platelet Vol. 9.6 fl (6.2-12.0); Monocyte# 0.73 X10^3/uL; Monocyte% 4.8 % (0-10); NRBC Flagged by Analyzer 0 % (0-5); Neutrophil # 12.32 X10^3/uL (2.7-7.7); Platelet Count 277 K/mm3 (150-450); RBC Distribution Width CV 12.9 % (11.6-14.6); RBC Distribution Width SD 39.6 fl (35.1-43.9); White Blood Count 15.2 K/mm3 (4.4-11.0)
[2024-09-15] MEDS: Lidocaine 1% (20 ml mdv) 20 ML Vial INFILT (16:57)
[2024-09-15] MEDS: Vancomycin IV 1,000 MG/200 ML BAG 200 MG IV (16:58)
[2024-09-15 17:06] LABS: Anion Gap 10 (5-15); BUN 12 mg/dL (7-18); Calcium,Total 9.2 mg/dL (8.5-10.1); Chloride 94 mmol/L (98-107); Creatinine, Serum 1.09 mg/dL (0.55-1.02); EST Glomerular Filtration Rate 56 mL/min (>60); Est Glom Filt Rate - Afr Amer 68 mL/min (>60); Glucose 639 mg/dL (74-106); Potassium 3.8 mmol/L (3.5-5.1); Sodium Level 127 mmol/L (136-145)
[2024-09-15] MEDS: 0.9% Normal Saline (1000mL) 1,000 ML 999 ML IV ×2 (17:17→18:12)
[2024-09-15] MEDS: Insulin Lispro 100 UNIT/ML INSULN.PEN 20 UNIT SC (17:17)
[2024-09-15] MEDS: Cefazolin 2 GM in Syringe IV (18:12)
[2024-09-15] MEDS: Morphine 4 MG/ML Syringe IV (18:15)
[2024-09-15] MEDS: Ondansetron 4 MG/2 ML Vial IV (18:16)
[2024-09-15 18:18] LABS: Bedside Glucose 440 mg/dL (74-106)
--- NOTE | 2024-09-15 18:18 | PCM.HP.STD ---
HPI - General General Date of Admission: 09/15/24 Date of Service: 09/15/24 Chief Complaint: Left lip swelling HPI Narrative FREDDY GOMEZ, is a 48 F with a significant history of diabetes mellitus on long-term insulin who presents to the emergency department with 3-day history of progressively worsening of her left upper lip. Associated with her symptoms is severe pain at her lips. She denies any subjective fever. Her PCP sent her to the emergency department. At the emergency department she was found to have abscess at her left upper lip that that was lanced and cultures taken. Also patient reported right gluteal lesion that was assessed by ED doctor. Per ED doctor right upper lesion was lanced without any abscess or cellulitic change. [facility] Medical History Hypercholesterolemia Diabetes Home Medications ?Medication ?Instructions ?Recorded ?Last Taken ?Type duloxetine 60 mg capsule,delayed 60 mg PO QHS 09/15/24 09/12/24 History release empagliflozin 25 mg tablet 25 mg PO DAILY 09/15/24 09/12/24 History (Jardiance) glimepiride 4 mg tablet 4 mg PO BID 09/15/24 09/12/24 History insulin glargine 100 unit/mL (3 35 unit subcut QHS 09/15/24 09/12/24 History mL) subcutaneous pen (Lantus Solostar U-100 Insulin) omeprazole 40 mg capsule,delayed 40 mg PO DAILY 09/15/24 09/12/24 History release Allergy/AdvReac Type Severity Reaction Status Date / Time No Known Allergies Allergy Verified 09/15/24 15:54 Family History (Updated 09/15/24 @ 20:[address] Silver Hill MD) Other Diabetes Surgical History History of cholecystectomy Social History Smoking Status: Never smoker ROS ROS Narrative Complete review of system is negative except as stated in HPI. Vital Signs Vital Signs Vital Signs: 09/15/24 15:54 09/15/24 16:56 09/15/24 17:00 Temperature 97.9 F 98.5 F 98.5 F Temperature Source Oral Oral Oral Pulse Rate 120 H 103 H 103 H Respiratory Rate 16 16 18 Blood Pressure 139/85 H 108/65 106/65 Blood Pressure Mean 103 79 78 Pulse Ox 99 97 97 Oxygen Delivery Method Room Air Room Air Room Air 09/15/24 18:00 Temperature 97.8 F Temperature Source Oral Pulse Rate 98 Respiratory Rate 16 Blood Pressure 102/58 L Blood Pressure Mean 72 Pulse Ox 98 Oxygen Delivery Method Room Air Weight Weight: 67.948 kg Body Mass Index (BMI) 27.3 Physical Exam Narrative Physical exam: General: Crying secondary to pain. Well-nourished, well-developed. Head: Normocephalic, atraumatic, no tenderness Eyes: Mild conjunctival injection. Vision is grossly intact. EOMI ENT: Swollen over the left upper lip; no rhinorrhea Neck: Nontender, No thyromegaly. CVS: Regular rate and rhythm. S1-S2 present. No murmur, gallop or rub. Respiratory : clear to auscultation bilaterally, chest wall nontender Abdomen: Soft, nontender, nondistended, normal bowel sounds, no masses : Deferred Back: Nontender, no CVA tenderness, no midline spinal tenderness, deformities, step-offs Extremities: Nontender full range of motion, no trauma Skin: Normal color, no trauma, abrasions Neuro: Alert, oriented, cranial nerves II through XII grossly intact. Psychiatry: Crying. Results Lab / Micro Data 09/15/24 16:28 09/15/24 16:28 Labs: Laboratory Results - last 24 hr 09/15/24 16:28: WBC 15.2 H, RBC 5.20, Hgb 14.5, Hct 43.7, MCV 84.0, MCH 27.9, MCHC 33.2, RDW Std Deviation 39.6, RDW Coeff of Joseluis 12.9, Plt Count 277, MPV 9.6, Immature Gran % (Auto) 0.500, Neut % (Auto) 81.0 H, Lymph % (Auto) 13.0 L, [place] % (Auto) 4.8, Eos % (Auto) 0.4, Baso % (Auto) 0.3, Absolute Neuts (auto) 12.3 H, Absolute Lymphs (auto) 1.97, Nucleated RBC % 0, Sodium 127 L, Potassium 3.8, Chloride 94 L, Carbon Dioxide 23.0, Anion Gap 10, BUN 12, Creatinine 1.09 H, Estim Creat Clear Calc 55.80, Est GFR (MDRD) Af Amer 68, Est GFR (MDRD) Non-Af 56 L, BUN/Creatinine Ratio 11.0, Glucose 639 H*, Calcium 9.2 09/15/24 18:00: POC Glucose 440 H Assessment & Plan Assessment/Plan (1) Hyperglycemia due to diabetes mellitus: (2) Abscess of lip: (3) Hypercholesterolemia: (4) Hyponatremia: PLAN: Plan Abscess of lip Lanced at emergency department and cultures taken. Follow-up cultures. Vancomycin and cefazolin ordered. As needed oxycodone and morphine IV for pain. Labs reviewed showed leukocytosis. Trend CBC. Diabetes mellitus type II on long-term insulin hypoglycemia Blood glucose was not within goal. Reportedly on Ozempic. Basal insulin continued. Continue glimepiride. Reportedly recently prescribed Jardiance but has not picked up the prescription yet. Start Jardiance while at hospital. Accu-Chek correction scale insulin ordered Hyponatremia Likely secondary to hyperglycemia. Treat hyperglycemia. Trend BMP. Advance care planning: Discussed with patient and family advanced directives as well as CODE STATUS. Explained various CODE STATUS: FULL CODE, DNR CCA, DNR CCA with no intubation, and DNR CC- and what each meant. Patient elected to be a full code with CPR and intubation if warranted. Surrogate decision maker is her sister, Tomeka who is in [place]. Order was placed. Time spent on discussion 16 minutes. Time spent in the patient's overall evaluation,decision-making process, review of diagnostic data, adjustment of management, discussion with other providers, nursing and ancillary staff involved in patient's care documentation, 65 minutes. Charges/Coding Visit Charges Inpatient E&M: 06738 Init Hosp L3 Procedures Hospitalists Procedures: 95094 Advncd Care Plan 30 Min
--- NOTE | 2024-09-15 19:16 | PCM.RX.CS ---
Consult Antibiotic Management Pharmacy has been consulted to manage selected antibiotic: Vancomycin Type of Intervention Type of Consult: Follow-up Suspected Infection Suspected Infection: Skin/Soft tissue Prior Doses of Antibiotics Prior Doses of Antibiotics Received/Current Regimen: Vancomycin 1000 mg IV x 1 09/15/24 @ 4062 Labs Labs: Sodium 127 mmol/L (136-145) L 09/15/24 16:28 Potassium 3.8 mmol/L (3.5-5.1) 09/15/24 16:28 Chloride 94 mmol/L (98-107) L 09/15/24 16:28 Carbon Dioxide 23.0 mmol/L (21.0-32.0) 09/15/24 16:28 Anion Gap 10 (5-15) 09/15/24 16:28 BUN 12 mg/dL (7-18) 09/15/24 16:28 Creatinine 1.09 mg/dL (0.55-1.02) H 09/15/24 16:28 Est GFR (MDRD) Af Amer 68 mL/min (>60) 09/15/24 16:28 Est GFR (MDRD) Non-Af 56 mL/min (>60) L 09/15/24 16:28 BUN/Creatinine Ratio 11.0 RATIO (10-20) 09/15/24 16:28 Glucose 639 mg/dL (74-106) H* 09/15/24 16:28 Dosing Weight Weight used for dosin.2 kg Estimated Creatinine Clearance Estimated Creatinine Clearance: ~56 Goal Trough Goal Trough: 15-20 mcg/mL Pharmacy Plan for Drug Dosing Pharmacy Plan for Drug Dosing: Vancomycin 1000 mg IV x1 followed by 500 mg Q12H Pharmacy Service will continue to monitor and adjust dosing as required. Follow-Up Labs Follow-Up Labs: Trough: Vancomycin Date/Time Labs Ordered Labs to be done on [date and time ordered]: 09/17/24 @ 9997
[2024-09-15] MEDS: DULoxetine Hcl 60 MG Capsule PO (21:49)
[2024-09-15] MEDS: Glimepiride 4 MG Tablet PO (21:49)
[2024-09-15] MEDS: Insulin Glargine-YFGN 100 UNIT/ML Pen 35 UNIT SC (21:54)
[2024-09-15 22:57] LABS: Bedside Glucose 233 mg/dL (74-106)
[2024-09-16 02:56] VITALS: BP 117/59; PULSE 101; RESP 16; TEMP 37.2; O2SAT 99
[2024-09-16] MEDS: Vancomycin IV 500 MG/100 ML BAG 100 MG IV (04:07)
[2024-09-16] MEDS: Insulin Lispro 100 UNIT/ML INSULN.PEN SC ×3 (05:07→20:25)
[2024-09-16] MEDS: Cefazolin 2 GM in 0.9% Normal Saline (100mL Bag) 100 ML IV (05:07)
[2024-09-16 05:35] LABS: Bedside Glucose 275 mg/dL (74-106)
[2024-09-16 06:56] LABS: Absolute Lymphocyte Count 3.18 X10^3/uL (0.83-4.51); Absolute Neutrophil Count 9.6 X10^3/uL (2.0-7.7); Basophil# 0.03 X10^3/uL; Basophil% 0.2 % (0-1); Eosinophil# 0.16 X10^3/uL; Eosinophils% 1.2 % (0-5); Hematocrit 38.7 % (37-47); Hemoglobin 12.8 g/dL (12.0-15.0); Lymphocyte # 3.18 X10^3/ul (0.83-4.51); Lymphocyte % 23.2 % (19-41); Mean Corp Hgb Conc 33.1 g/dL (32-36); Mean Corpuscular Hgb 27.4 pg (27.0-32.0); Mean Corpuscular Volume 82.9 fL (81-99); Mean Platelet Vol. 9.7 fl (6.2-12.0); Monocyte# 0.72 X10^3/uL; Monocyte% 5.2 % (0-10); NRBC Flagged by Analyzer 0 % (0-5); Neutrophil # 9.56 X10^3/uL (2.7-7.7); Neutrophil % 69.7 % (47-70); Platelet Count 274 K/mm3 (150-450); RBC Distribution Width CV 12.8 % (11.6-14.6); RBC Distribution Width SD 38.6 fl (35.1-43.9); Red Blood Count 4.67 M/mm3 (4.2-5.4); White Blood Count 13.7 K/mm3 (4.4-11.0)
[2024-09-16 07:30] VITALS: BP 100/56; PULSE 86; RESP 16; TEMP 36.6; O2SAT 96
[2024-09-16 07:55] LABS: Anion Gap 7 (5-15); BUN 7 mg/dL (7-18); BUN/Creat Ratio 12.5 RATIO (10-20); Chloride 101 mmol/L (98-107); Creatinine, Serum 0.56 mg/dL (0.55-1.02); EST Glomerular Filtration Rate 121 mL/min (>60); Est Glom Filt Rate - Afr Amer 147 mL/min (>60); Estimated Creatinine Clearance 107.27 ml/min; Glucose 235 mg/dL (74-106); Potassium 3.6 mmol/L (3.5-5.1); Sodium Level 133 mmol/L (136-145)
--- NOTE | 2024-09-16 08:00 | PCM.PN.HOSP ---
Reason for Visit Reason for Visit: Diagnoses Type 2 diabetes mellitus with hyperglycemia (09/15/24) Pure hypercholesterolemia, unspecified (09/15/24) Hypo-osmolality and hyponatremia (09/15/24) Diseases of lips (09/15/24) Subjective Subjective Lip still swollen. Perhaps a little more swallen from yesterday. Objective Data Objective Data Vital Signs: Vital Signs Temp Pulse Resp BP Pulse Ox O2 Del Method 36.6 C 86 16 100/56 L 96 Room Air 09/16/24 07:30 09/16/24 07:30 09/16/24 07:30 09/16/24 07:30 09/16/24 07:30 09/16/24 07:30 Oxygen Delivery Method Room Air Weight: 66.2 kg Body Mass Index (BMI) 26.6 Intake & Output: Intake and Output for Last 24 Hours 09/14/24 09/15/24 09/16/24 23:59 23:59 23:59 Intake Total 2135.75 / 2135.75 210 / 210 Output Total 4 / 4 Balance 2135.75 / 2133.75 206 / 206 Lab / Micro Data 09/16/24 06:18 09/16/24 06:18 Labs: Laboratory Results - last 24 hr 09/15/24 16:28: WBC 15.2 H, RBC 5.20, Hgb 14.5, Hct 43.7, MCV 84.0, MCH 27.9, MCHC 33.2, RDW Std Deviation 39.6, RDW Coeff of Joseluis 12.9, Plt Count 277, MPV 9.6, Immature Gran % (Auto) 0.500, Neut % (Auto) 81.0 H, Lymph % (Auto) 13.0 L, [place] % (Auto) 4.8, Eos % (Auto) 0.4, Baso % (Auto) 0.3, Absolute Neuts (auto) 12.3 H, Absolute Lymphs (auto) 1.97, Nucleated RBC % 0, Sodium 127 L, Potassium 3.8, Chloride 94 L, Carbon Dioxide 23.0, Anion Gap 10, BUN 12, Creatinine 1.09 H, Estim Creat Clear Calc 55.80, Est GFR (MDRD) Af Amer 68, Est GFR (MDRD) Non-Af 56 L, BUN/Creatinine Ratio 11.0, Glucose 639 H*, Calcium 9.2 09/15/24 18:00: POC Glucose 440 H 09/15/24 21:48: POC Glucose 233 H 09/16/24 05:05: POC Glucose 275 H 09/16/24 06:18: WBC 13.7 H, RBC 4.67, Hgb 12.8, Hct 38.7, MCV 82.9, MCH 27.4, MCHC 33.1, RDW Std Deviation 38.6, RDW Coeff of Joseluis 12.8, Plt Count 274, MPV 9.7, Immature Gran % (Auto) 0.500, Neut % (Auto) 69.7, Lymph % (Auto) 23.2, [place] % (Auto) 5.2, Eos % (Auto) 1.2, Baso % (Auto) 0.2, Absolute Neuts (auto) 9.6 H, Absolute Lymphs (auto) 3.18, Nucleated RBC % 0, Sodium 133 L, Potassium 3.6, Chloride 101, Carbon Dioxide 25.0, Anion Gap 7, BUN 7, Creatinine 0.56, Estim Creat Clear Calc 107.27, Est GFR (MDRD) Af Amer 147, Est GFR (MDRD) Non-Af 121, BUN/Creatinine Ratio 12.5, Glucose 235 H, Calcium 9.0 Physical Exam Const alert and no apparent distress HEENT HEENT Narrative: prominent lip swelling on left. Poor dentition. Missing tooth #11 or 12 with cavities extending more posteriorly. Neck no lymphadenopathy Neck Narrative: no thyromegaly. Neuro Sensorium / Orientation: awake and alert Assessment & Plan Assessment/Plan (1) Hyperglycemia due to diabetes mellitus: (2) Abscess of lip: (3) Hypercholesterolemia: (4) Hyponatremia: PLAN: Plan Abscess of lip Lanced at emergency department and cultures taken. Follow-up cultures. Vancomycin and cefazolin ordered. As needed oxycodone and morphine IV for pain. Labs reviewed showed leukocytosis. Trend CBC. ST showed soft tissue swelling overlying the left-sided mandible extending towards right suggestive of an inflammatory change. I suspect it was a dental source of infection given her poor dentition. Advise dental follow up as outpt. Continue IV abx. Diabetes mellitus type II on long-term insulin hypoglycemia Blood glucose was not within goal. Reportedly on Ozempic. Basal insulin continued. Continue glimepiride. Reportedly recently prescribed Jardiance but has not picked up the prescription yet. Start Jardiance while at hospital. Accu-Chek correction scale insulin ordered Hyponatremia Likely secondary to hyperglycemia. Treat hyperglycemia. Trend BMP. Charges/Coding Visit Charges Inpatient E&M: 56395 Subs Hosp L2
--- NOTE | 2024-09-16 08:41 | PCM.RX.CS ---
Consult Antibiotic Management Pharmacy has been consulted to manage selected antibiotic: Vancomycin Type of Intervention Type of Consult: Follow-up Suspected Infection Suspected Infection: Skin/Soft tissue Labs Labs: Sodium 133 mmol/L (136-145) L 09/16/24 06:18 Potassium 3.6 mmol/L (3.5-5.1) 09/16/24 06:18 Chloride 101 mmol/L (98-107) 09/16/24 06:18 Carbon Dioxide 25.0 mmol/L (21.0-32.0) 09/16/24 06:18 Anion Gap 7 (5-15) 09/16/24 06:18 BUN 7 mg/dL (7-18) 09/16/24 06:18 Creatinine 0.56 mg/dL (0.55-1.02) 09/16/24 06:18 Est GFR (MDRD) Af Amer 147 mL/min (>60) 09/16/24 06:18 Est GFR (MDRD) Non-Af 121 mL/min (>60) 09/16/24 06:18 BUN/Creatinine Ratio 12.5 RATIO (10-20) 09/16/24 06:18 Glucose 235 mg/dL (74-106) H 09/16/24 06:18 Goal Trough Goal Trough: 10-15 mcg/mL Pharmacy Plan for Drug Dosing Pharmacy Plan for Drug Dosing: DAILY ASSESSMENT Current Vancomycin Dose: 500mg Q12H Number of Doses Received: 500mg x1 Current Renal Function: sCr 0.56 Renal Function Trend: improved (baseline) Lab/Micro: cx pending Any Change in Vanc Plan: Yes - increase Vancomycin dose to 1000mg Q12H Pending Level: Vancomycin trough @ 0430 09/17/24 Pharmacy Service will continue to monitor and adjust dosing as required. Follow-Up Labs Follow-Up Labs: Trough: Vancomycin (09/17/24 @ 0430)
[2024-09-16] MEDS: Pantoprazole Sodium 40 MG Tablet PO (09:16)
[2024-09-16] MEDS: Glimepiride 4 MG Tablet PO ×2 (09:16→20:26)
[2024-09-16] MEDS: Empagliflozin 25 MG Tablet PO (09:17)
--- NOTE | 2024-09-16 10:05 | CT_ITS ---
STUDY: CT FACIAL BONES WITH CONTRAST REASON FOR EXAM: Female, 48 years old. Left lip cellulitis. Cavities on left RADIATION DOSAGE (If Supplied By Facility): CTDIvol = ( 29.38 ) mGy, DLP = ( 620.92 ) mGycm TECHNIQUE: The patient was scanned in a multi detector CT scanner. Transaxial imaging was performed following the intravenous administration of IV 75mL Isovue-370. Sagittal and coronal images were reconstructed. Individualized dose optimization techniques were used for this CT. COMPARISON: None. FINDINGS: There is a soft tissue prominence in the subcutaneous tissues overlying the left side of the mandible extending to the midline. Lesser degree of swelling along the right side of the midline. There is evidence of overlying skin thickening. There is evidence of enhancing lymph nodes in the submental region more prominent on the left side measuring 1.2 cm. No bony destruction is seen. Normal orbital vasquez and orbital contents. Normal nasal bones and anterior nasal spine. Normal facial bones. There is no demonstrated fracture. Normal visualized paranasal sinuses. CT/Sinus/Facial Bone WITH Contras IMPRESSION: Soft tissue swelling overlying the left-sided mandible extending anteriorly into the right-sided midline suggestive of a inflammatory change. Mildly enlarged lymph nodes in the subcutaneous mental region. Electronically Signed: Jonnathan Beebe MD at 11:05 EST ,
[2024-09-16] MEDS: Cefazolin 2 GM in Syringe 10 ML IV ×2 (14:02→20:24)
[2024-09-16 14:30] VITALS: BP 112/70; PULSE 96; RESP 16; TEMP 36.1; O2SAT 96
[2024-09-16] MEDS: oxyCODONE 5 MG Tablet PO (14:35)
[2024-09-16 16:42] LABS: Bedside Glucose 317 mg/dL (74-106)
[2024-09-16] MEDS: Vancomycin IV 1,000 MG/200 ML BAG 200 MG IV (17:19)
[2024-09-16 20:20] VITALS: BP 118/50; PULSE 98; RESP 14; TEMP 36.7; O2SAT 95
[2024-09-16] MEDS: Insulin Glargine-YFGN 100 UNIT/ML Pen 35 UNIT SC (20:25)
[2024-09-16] MEDS: DULoxetine Hcl 60 MG Capsule PO (20:26)
[2024-09-16] MEDS: 0.9% Saline Lock 10 ML Syringe IV (20:27)
[2024-09-16 20:55] LABS: Bedside Glucose 424 mg/dL (74-106)
[2024-09-17 01:00] VITALS: PULSE 101
[2024-09-17 02:20] VITALS: BP 96/53; PULSE 96; RESP 16; TEMP 37.1; O2SAT 99
[2024-09-17] MEDS: Vancomycin Trough/Random Due 1 LAB MC (04:40)
[2024-09-17 05:33] LABS: Vancomycin, Trough Level 4.6 ug/mL (5.0-15.0)
--- NOTE | 2024-09-17 06:32 | PCM.RX.CS ---
Consult Antibiotic Management Pharmacy has been consulted to manage selected antibiotic: Vancomycin Type of Intervention Type of Consult: Follow-up Labs Labs: Sodium 133 mmol/L (136-145) L 09/16/24 06:18 Potassium 3.6 mmol/L (3.5-5.1) 09/16/24 06:18 Chloride 101 mmol/L (98-107) 09/16/24 06:18 Carbon Dioxide 25.0 mmol/L (21.0-32.0) 09/16/24 06:18 Anion Gap 7 (5-15) 09/16/24 06:18 BUN 7 mg/dL (7-18) 09/16/24 06:18 Creatinine 0.56 mg/dL (0.55-1.02) 09/16/24 06:18 Est GFR (MDRD) Af Amer 147 mL/min (>60) 09/16/24 06:18 Est GFR (MDRD) Non-Af 121 mL/min (>60) 09/16/24 06:18 BUN/Creatinine Ratio 12.5 RATIO (10-20) 09/16/24 06:18 Glucose 235 mg/dL (74-106) H 09/16/24 06:18 Vancomycin Trough 4.6 ug/mL (5.0-15.0) L 09/17/24 04:38 Goal Trough Goal Trough: 10-15 mcg/mL Pharmacy Plan for Drug Dosing Pharmacy Plan for Drug Dosing: Pharmacy Service will continue to monitor and adjust dosing as required. TROUGH 4.6 @ 11.5 HOURS (GOAL 10-15) INCREASE TO 1250MG Q12H AND DRAW TROUGH PRIOR TO 4TH DOSE Follow-Up Labs Follow-Up Labs: Trough: Vancomycin Date/Time Labs Ordered Labs to be done on [date and time ordered]: 09/18 @ 1800
[2024-09-17] MEDS: Vancomycin HCl 1,250 MG in 0.9% Normal Saline (250mL Bag) 250 ML 167 MG IV (06:40)
[2024-09-17] MEDS: Cefazolin 2 GM in Syringe 10 ML IV (06:40)
[2024-09-17 07:14] LABS: Bedside Glucose 121 mg/dL (74-106)
[2024-09-17 08:11] VITALS: BP 104/61; PULSE 89; RESP 16; TEMP 36.6; O2SAT 98
[2024-09-17] MEDS: Empagliflozin 25 MG Tablet PO (10:32)
[2024-09-17] MEDS: Glimepiride 4 MG Tablet PO (10:32)
[2024-09-17] MEDS: Pantoprazole Sodium 40 MG Tablet PO (10:32)
--- NOTE | 2024-09-17 10:44 | PCM.DC.SUM ---
Providers Date of Admission: 09/15/24 Primary Care Physician: Dr. Esteban Noel MD Reason For Visit: LEFT UPPER LIP ABSCESS Diagnosis Discharge Diagnosis (1) Hyperglycemia due to diabetes mellitus: Status: Acute Code(s): E11.65 - Type 2 diabetes mellitus with hyperglycemia (2) Abscess of lip: Status: Acute Code(s): K13.0 - Diseases of lips (3) Hypercholesterolemia: Status: Acute Code(s): E78.00 - Pure hypercholesterolemia, unspecified (4) Hyponatremia: Status: Acute Code(s): E87.1 - Hypo-osmolality and hyponatremia Plan Abscess of lip Lanced at emergency department and cultures taken. Follow-up cultures. Vancomycin and cefazolin ordered. As needed oxycodone and morphine IV for pain. Labs reviewed showed leukocytosis. Trend CBC. ST showed soft tissue swelling overlying the left-sided mandible extending towards right suggestive of an inflammatory change. I suspect it was a dental source of infection given her poor dentition. Advise dental follow up as outpt. Improving with antibiotics. Discharge with cephalexin. Diabetes mellitus type II on long-term insulin hypoglycemia Blood glucose was not within goal. Reportedly on Ozempic. Basal insulin continued. Continue glimepiride. Reportedly recently prescribed Jardiance but has not picked up the prescription yet. Start Jardiance while at hospital. Accu-Chek correction scale insulin ordered Hyponatremia Likely secondary to hyperglycemia. Treat hyperglycemia. Trend BMP. Medications at Discharge Home Medications duloxetine 60 mg capsule,delayed release 60 mg PO QHS 09/15/24 empagliflozin 25 mg tablet (Jardiance) 25 mg PO DAILY 09/15/24 glimepiride 4 mg tablet 4 mg PO BID 09/15/24 insulin glargine 100 unit/mL (3 mL) subcutaneous pen (Lantus Solostar U-100 Insulin) 35 unit subcut QHS 09/15/24 omeprazole 40 mg capsule,delayed release 40 mg PO DAILY 09/15/24 cephalexin 500 mg capsule 500 mg PO Q8H #15 caps 09/17/24 Physical Exam Const Constitutional Narrative: Left lip swelling slightly diminished from the 24th. Indurated. No fluctuance. Poor dentition particularly on the left side. Weight / BMI Weight Weight: 66.2 kg Body Mass Index (BMI) 26.6 ABG / Lab / Microbiology Data 09/16/24 06:18 09/16/24 06:18 Laboratory: Laboratory Results - last 24 hr 09/16/24 06:18: Hemoglobin A1c 11.0 H 09/16/24 16:22: POC Glucose 317 H 09/16/24 20:23: POC Glucose 424 H 09/17/24 04:38: Vancomycin Trough 4.6 L 09/17/24 06:42: POC Glucose 121 H Radiography Diagnostic Testing: Radiology Impression Facial/Sinus 09/16/24 10:05 IMPRESSION: Soft tissue swelling overlying the left-sided mandible extending anteriorly into the right-sided midline suggestive of a inflammatory change. Mildly enlarged lymph nodes in the subcutaneous mental region. Electronically Signed: Jonnathan Beebe MD at 11:05 EST , D/C Instructions Discharge Diet: 2000 Calorie Control Diet DC O2, CPAP, BIPAP Needs Home O2 Discharge instructions: No Meaningful Use Info Meaningful Use Meaningful Use Diagnoses (Choose all that apply): None applicable Ischemic Stroke Statin Dosing Therapy Reference: STATIN DOSE THERAPY REFERENCE: * Patients > 75 years receive moderate or high dose statin therapy. * Patients 75 years or YOUNGER should receive HIGH intensity statin dose unless contraindicated. You will be required to document reason for non-treatment if statin daily dose does not meet guidelines. HIGH DOSE STATIN THERAPY DAILY Atorvastatin > than or = to 40 mg Rosuvastatin > than or = to 20 mg Amlodipine + Atorvastatin > than or = to 2.5/40 mg Ezetimibe + Simvastatin 10/80 mg Simvastatin 80mg Discharge Plan Admission Admit Date/Time: 09/15/24 18:08 Primary Reason for Your Visit: lip cellulitis. Attending Provider: Brennan Mariano Primary Care Provider: Esteban Noel Consulting Providers: [place] Instructions Additional Instructions / Restrictions: As we discussed, I feel that your infection of your lip (cellulitis) was likely due to your bad teeth on that side. Take the antibiotics as instructed. If your lip does get worse, notify your physician or return to the emergency room. Also did recommend that you follow-up with the dentist to have your teeth properly checked to help prevent anything like this in the future. Discharge Orders/Prescriptions Prescriptions: New cephalexin 500 mg capsule 500 mg PO Q8H Qty: 15 0RF Continued glimepiride 4 mg tablet 4 mg PO BID duloxetine 60 mg capsule,delayed release(DR/EC) 60 mg PO QHS Jardiance 25 mg tablet 25 mg PO DAILY omeprazole 40 mg capsule,delayed release(DR/EC) 40 mg PO DAILY insulin glargine [Lantus Solostar U-100 Insulin] 100 unit/mL (3 mL) insulin pen 35 unit subcut QHS Referrals / Follow Up: Esteban Noel MD [Primary Care Provider] - Within 2 Weeks Disposition Disposition (needs filled in before D/C Order can be placed): Home, Self Care Charges/Coding Visit Charges Inpatient E&M: 77157 Disch Hosp
== END 2024-09-17 10:49 | disposition home or self-care (01) ==
LOC: ED 18:03 → PCU 18:29
PROVIDERS: Admitting Provider Hospitalist; Emergency Provider Emergency Medicine; PCP Family Medicine; Referring Provider Emergency Medicine
DX: K13.0 Diseases of lips (principal); E11.65 Type 2 diabetes mellitus with hyperglycemia; Z79.4 Long term (current) use of insulin; Z79.85 Long-term (current) use of injectable non-insulin antidiabetic drugs; R13.10 Dysphagia, unspecified; E87.1 Hypo-osmolality and hyponatremia; E78.00 Pure hypercholesterolemia, unspecified; Z79.84 Long term (current) use of oral hypoglycemic drugs
CPT/HCPCS: 10060; 36415; 70487; 80048; 80202; 82962; 83036; 85025; 96365; 96366; 96368; 96375; 96376; 99221; 99284; Q9967; A4216; G0378; J2405

== ENCOUNTER → 2024-11-08 | Outpatient (CLI) | payer OTHER, SELFPAY ==
[2024-11-08 10:49] LABS: ALB/GLOB Ratio 1.1 RATIO (0.9-2.4); AST(SGOT) 23 U/L (<=31); Alanine Aminotransfer ALT/SGPT 15 U/L (<=34); Albumin, Serum 4.2 g/dL (3.5-5.0); Alkaline Phosphatase 106 U/L (35-104); Anion Gap 14 (5-15); BUN 13 mg/dL (4-19); Calcium,Total 9.4 mg/dL (7.6-11.0); Chloride 102 mmol/L (98-108); Cholesterol 241 mg/dL (<=200); Creatinine, Serum 0.63 mg/dL (0.70-1.20); EST Glomerular Filtration Rate 107 (>60); Globulin 3.7 g/dL (2.2-4.2); Glucose 167 mg/dL (70-99); High Density Lipoprotein 39 mg/dL; Low Density Lipoprotein Calc. 103 mg/dL; Protein, Total 7.9 g/dL (5.9-8.4); Sodium Level 141 mmol/L (133-145); Triglycerides 492 mg/dL; Very Low Density Lipoprotein 98 mg/dL (5-40); cholesterol:hdl ratio screen 6.15
[2024-11-08 10:51] LABS: Microalbumin:Creatinine Ratio 133.3 mg/g CRE
== END | disposition home or self-care (01) ==
LOC: MFPLAB 09:25
PROVIDERS: PCP Family Medicine; Referring Provider Family Medicine; Visit Provider Family Medicine
DX: E11.40 Type 2 diabetes mellitus with diabetic neuropathy, unspecified (principal)
CPT/HCPCS: 36415; 80053; 80061; 82043; 82570

== ENCOUNTER → 2024-11-17 | Outpatient (CLI) | payer OTHER, SELFPAY ==
[2024-11-17 18:02] LABS: Absolute Lymphocyte Count 2.18 X10^3/uL (0.83-4.51); Absolute Neutrophil Count 5.7 X10^3/uL (2.0-7.7); Basophil# 0.04 X10^3/uL; Basophil% 0.5 % (0-1); Eosinophil# 0.03 X10^3/uL; Eosinophils% 0.4 % (0-5); Hematocrit 46.4 % (37-47); Hemoglobin 15.3 g/dL (12.0-15.0); Lymphocyte # 2.18 X10^3/ul (0.83-4.51); Lymphocyte % 26.1 % (19-41); Mean Corpuscular Volume 84.8 fL (81-99); Mean Platelet Vol. 9.6 fl (6.2-12.0); Monocyte# 0.35 X10^3/uL; Monocyte% 4.2 % (0-10); NRBC Flagged by Analyzer 0 % (0-5); Neutrophil # 5.74 X10^3/uL (2.7-7.7); Neutrophil % 68.6 % (47-70); Platelet Count 347 K/mm3 (150-450); RBC Distribution Width CV 13.4 % (11.6-14.6); Red Blood Count 5.47 M/mm3 (4.2-5.4); White Blood Count 8.4 K/mm3 (4.4-11.0)
[2024-11-17 19:12] LABS: Syphilis Antibodies Nonreactive (Nonreactive)
[2024-11-17 19:57] LABS: ALB/GLOB Ratio 1.2 RATIO (0.9-2.4); AST(SGOT) 22 U/L (<=31); Alanine Aminotransfer ALT/SGPT 20 U/L (<=34); Albumin, Serum 4.5 g/dL (3.5-5.0); Alkaline Phosphatase 112 U/L (35-104); Anion Gap 16 (5-15); BUN 12 mg/dL (4-19); BUN/Creat Ratio 20.4 RATIO (10-20); Calcium,Total 9.9 mg/dL (7.6-11.0); Carbon Dioxide 25.9 mmol/L (21.0-32.0); Chloride 99 mmol/L (98-108); EST Glomerular Filtration Rate 109 (>60); Globulin 3.7 g/dL (2.2-4.2); Glucose 163 mg/dL (70-99); HIV Nonreactive (Nonreactive); Lipase 26 U/L (13-75); Potassium 4.1 mmol/L (3.3-5.1); Protein, Total 8.1 g/dL (5.9-8.4); Sodium Level 140 mmol/L (133-145); Total Bilirubin 0.36 mg/dL (0.00-1.30)
== END | disposition home or self-care (01) ==
LOC: MFPLAB 14:43
PROVIDERS: PCP Family Medicine; Referring Provider Family Medicine; Visit Provider Family Medicine
DX: R10.13 Epigastric pain (principal); Z11.3 Encounter for screening for infections with a predominantly sexual mode of transmission; Z20.2 Contact with and (suspected) exposure to infections with a predominantly sexual mode of transmission
CPT/HCPCS: 36415; 80053; 83690; 85025; 86695; 86696; 86703; 86780; 87491; 87591

== ENCOUNTER → 2025-01-27 | Outpatient (CLI) | payer OTHER, SELFPAY ==
[2025-01-27 13:04] LABS: ALB/GLOB Ratio 1.1 RATIO (0.9-2.4); AST(SGOT) 19 U/L (<=31); Alanine Aminotransfer ALT/SGPT 20 U/L (<=34); Albumin, Serum 4.2 g/dL (3.5-5.0); Alkaline Phosphatase 101 U/L (35-104); Anion Gap 12 (5-15); BUN 16 mg/dL (4-19); BUN/Creat Ratio 25.4 RATIO (10-20); Calcium,Total 9.3 mg/dL (7.6-11.0); Carbon Dioxide 25.7 mmol/L (21.0-32.0); Chloride 104 mmol/L (98-108); Cholesterol 215 mg/dL (<=200); Creatinine, Serum 0.62 mg/dL (0.70-1.20); EST Glomerular Filtration Rate 108 (>60); Globulin 3.6 g/dL (2.2-4.2); Glucose 94 mg/dL (70-99); High Density Lipoprotein 38 mg/dL; Low Density Lipoprotein Calc. 97 mg/dL; Potassium 4.1 mmol/L (3.3-5.1); Protein, Total 7.8 g/dL (5.9-8.4); Sodium Level 142 mmol/L (133-145); Total Bilirubin 0.29 mg/dL (0.00-1.30); Triglycerides 403 mg/dL; Very Low Density Lipoprotein 81 mg/dL (5-40); cholesterol:hdl ratio screen 5.67
[2025-01-27 13:33] LABS: Microalbumin,Random Urine 21.7 mg/L (NO RANGE EST.); Microalbumin:Creatinine Ratio 112.4 mg/g CRE
--- OUTSIDE RECORDS SUMMARY | 2025-01-27 15:45 | XMS RPT_ITS | CCD ---
Author Organization [facility] Care Team Providers Care Material Hauler Name Role Phone Dr. Esteban Noel Primary Care Provider Dr. Esteban Noel Referring Provider Dr. More White Attending Provider Dr. Esteban Noel MD Primary Care Provider [phone] Dr. Jeff Parra MD Attending Provider Dr. Jeff Parra MD Emergency Provider Dr. Ruben Su DO Referring Provider Dr. Ruben Su DO Emergency Provider Liz HEREDIA, Dr. Sheppard Admit Provider Liz HEREDIA, Dr. Sheppard Other Provider Dr. Brennan Mariano DO Attending Provider Dr. Silver Hill MD Attending Provider Dr. Brennan Mariano DO Other Provider Dr. Esteban Noel MD Attending Provider Bert HEREDIA, Dr. Orellana Referring Provider Esteban Noel Primary Care Unavailable Esteban Noel Attending Unavailable Bert, Esteban Primary Care Unavailable Esteban Noel Attending Unavailable Esteban Noel Attending Unavailable Bert, Esteban Referring Unavailable Bert, Esteban Primary Care Unavailable Ruben Su Referring Unavailable Bert, Esteban Primary Care Unavailable Silver Hill Admitting Unavailable Silver Hill Consulting Unavailable Brennan Mariano Attending Unavailable Parra, Jeff Attending Unavailable Esteban Noel Primary Care Unavailable Esteban Noel Attending Unavailable Esteban Noel Referring Unavailable Esteban Noel Primary Care Unavailable Esteban Noel Attending Unavailable Esteban Noel Referring Unavailable Esteban Noel Primary Care Unavailable Bert, Esteban Primary Care Unavailable Silver Hill Consulting Unavailable Silver Hill Admitting Unavailable Brennan Mariano Attending Unavailable Ruben Su Referring Unavailable Brennan Mariano Consulting Unavailable Silver Hill Attending Unavailable Esteban Noel Primary Care Unavailable Bert, Esteban Attending Unavailable Medications Current Medications Medication Drug Class(es) Dates Sig (Normalized) Sig (Original) cephalexin 500 mg oral capsule (2 sources) Cephalosporin Antibacterial Start: 09-17-2024 take 1 capsule by mouth every eight hours Cephalexin 500 mg capsule Active 500 mg PO Q8H September 17, 2024 1:00am DULoxetine 60 mg delayed release oral capsule (2 sources) Serotonin and Norepinephrine Reuptake Inhibitor Start: 09-15-2024 take 1 capsule by mouth at bedtime Duloxetine 60 mg capsule,delayed release(DR/EC) Active 60 mg PO AT BEDTIME September 15, 2024 1:00am empagliflozin 25 mg oral tablet (2 sources) Sodium-Glucose Cotransporter 2 Inhibitor Start: 09-15-2024 take 1 tablet by mouth once daily Empagliflozin (Jardiance) 25 mg tablet Active 25 mg PO DAILY September 15, 2024 1:00am glimepiride 4 mg oral tablet (2 sources) Sulfonylurea Start: 09-15-2024 take 1 tablet by mouth twice daily Glimepiride 4 mg tablet Active 4 mg PO TWICE A DAY September 15, 2024 1:00am 3 ml insulin glargine 100 unt/ml pen injector (2 sources) Insulin Analog Start: 09-15-2024 Insulin Glargine (Lantus Solostar U-100 Insulin) 100 unit/mL (3 mL) insulin pen Active 35 U SC AT BEDTIME September 15, 2024 1:00am omeprazole 40 mg delayed release oral capsule (2 sources) Proton Pump Inhibitor Start: 09-15-2024 take 1 capsule by mouth once daily Omeprazole 40 mg capsule,delayed release(DR/EC) Active 40 mg PO DAILY September 15, 2024 1:00am Completed/Discontinued Medications Medication Drug Class(es) Dates Sig (Normalized) Sig (Original) metFORMIN hydrochloride 1000 mg oral tablet (8 sources) Biguanide Start: 08-08-2021 End: 09-15-2024 take 1 tablet by mouth once daily Metformin 1,000 mg tablet Discontinued 1000 mg PO DAILY August 08, 2021 1:00am September 15, 2024 7:05pm ondansetron 4 mg disintegrating oral tablet (2 sources) Serotonin-3 Receptor Antagonist Start: 08-05-2024 End: 09-15-2024 take 1 tablet by mouth every eight hours as needed for nausea Ondansetron 4 mg tablet,disintegrat ing Discontinued 4 mg PO EVERY 8 HOURS NEEDED as needed for Nausea August 05, 2024 1:00am September 15, 2024 7:05pm pantoprazole 40 mg delayed release oral tablet (8 sources) Proton Pump Inhibitor Start: 11-14-2021 End: 09-15-2024 take 1 tablet by mouth once daily Pantoprazole (Protonix) 40 mg tablet,delayed release (DR/EC) Discontinued 40 mg PO DAILY November 14, 2021 12:00am September 15, 2024 7:05pm rosuvastatin calcium 20 mg oral tablet (8 sources) HMG-CoA Reductase Inhibitor Start: 08-08-2021 End: 09-15-2024 take 1 tablet by mouth once daily Rosuvastatin 20 mg tablet Discontinued 20 mg PO DAILY August 08, 2021 1:00am September 15, 2024 7:06pm Problems Active Problems Problem Classification Problem Date Documented Da te Episodic/Chronic Abdominal pain (9 sources) Abdominal pain; Translations: [Unspecified abdominal pain] Onset: 11-22-2024 11-22-2021 Episodic Cardiac dysrhythmias (2 sources) Sinus tachycardia; Translations: [Tachycardia, unspecified] 08-13-2024 Episodic Diabetes mellitus with complications (8 sources) Hyperglycemia due to diabetes mellitus; Translations: [Type 2 diabetes mellitus with hyperglycemia] Onset: 09-17-2024 09-15-2024 Chronic Diseases of mouth; excluding dental (6 sources) Abscess of lip; Translations: [Diseases of lips] Onset: 09-17-2024 09-25-2024 Episodic Disorders of lipid metabolism (5 sources) Hypercholesterolemi a; Translations: [Pure hypercholesterolemi a, unspecified] Onset: 09-17-2024 09-25-2024 Chronic Fluid and electrolyte disorders (7 sources) Dehydration; Translations: [Dehydration] Onset: 09-17-2024 08-13-2024 Episodic Gastritis and duodenitis (8 sources) Gastritis; Translations: [Gastritis, unspecified, without bleeding] 11-22-2021 Episodic Nausea and vomiting (3 sources) Nausea, vomiting and diarrhea; Translations: [Nausea with vomiting, unspecified] Onset: 09-05-2024 08-13-2024 Episodic Nonspecific chest pain (8 sources) Chest wall pain; Translations: [Other chest pain] 10-16-2023 Episodic Other gastrointestinal disorders (2 sources) Heartburn; Translations: [Heartburn] 08-13-2024 Episodic Other nutritional; endocrine; and metabolic disorders (4 sources) H/O: diabetes mellitus; Translations: [Personal history of other endocrine, nutritional and metabolic disease] 10-16-2023 Episodic Other nutritional; endocrine; and metabolic disorders (2 sources) Overweight in adulthood with body mass index of 25 or more but less than 30; Translations: [Body mass index (BMI) 28.0-28.9, adult] 08-13-2024 Episodic Past or Other Problems Problem Classification Problem Date Documented Da te Episodic/Chronic Malaise and fatigue (1 source) Other fatigue; Translations: [Other fatigue] Onset: 07-12-2024 Episodic Results Test Name Value Interpretation Reference Range Facility HSV 1 AND 2 IgGon 11-19-2024 HSV 1 IgG Normal [facility] Comment on above: Result Comment: RESU LT: REACTIVE Please note reference interval change HSV-1 IgG testing performed using the [employer] HSV-1 IgG assay. Performed By: #### L 500.2500, L100.0100, L501.9985 #### [facility] [address] [place], [place], [id number] HSV 2 IgG Normal [facility] Comment on above: Result Comment: RESU LT: REACTIVE Please note reference interval change Current guidelines and recommendations do not recommend routine screening for HSV-2 in asymptomatic individuals, including those that are . The detection of HSV-2 IgG antibodies in a single sample indicates previous exposure to HSV-2 but does not give information as to the site of HSV infection or the timing of exposure. The predictive value of positive and negative results depends on the population's prevalence and the pretest likelihood of HSV-2. HSV-2 IgG testing performed using the [employer] HSV-2 IgG assay. Performed at: [address] [id number] [place]: Manjinder Sandy PhD, Phone: [phone] Performed By: #### L 500.2500, L100.0100, L501.9985 #### [facility] [address] [facility] [place], [place], [id number] Absolute neutrophil countOrd ered By: Esteban Noel on 11-17-2024 Neutrophils (Bld) [#/Vol] 5.7 10*3/uL 2.0-7.7 [facility] Anion gap in Serum or Plasma Ordered By: Esteban Noel on 11-17-2024 Anion gap [Moles/Vol] 16 mmol/L High 5-15 [facility] BUN/creatinine ratioOrdered By: Esteban Noel on 11-17-2024 Urea nitrogen/Creatinine [Mass ratio] 20.4 mg/mg High 10-20 [facility] Basophil percentageOrdered B y: Esteban Noel on 11-17-2024 Basophils/100 WBC (Bld) 0.5 % 0-1 [facility] Bilirubin, totalOrdered By: Esteban Noel on 11-17-2024 Bilirubin [Mass/Vol] 0.36 mg/dL 0.00-1.30 [facility] CBC W/Diff, Automatedon 10-23 Absolute Lymph 2.18 X10 3/uL Normal 0.83-4.51 [facility] Comment on above: Performed By: #### M 8200.2203, L3890.6006, L500.4050, L509.8002, L3400.1610, L501.2450, L100.0100 #### [facility] [address] [place], [place], [id number] Absolute Neut 5.7 X10 3/uL Normal 2.0-7.7 [facility] Comment on above: Performed By: #### M 8200.2203, L3890.6006, L500.4050, L509.8002, L3400.1610, L501.2450, L100.0100 #### [facility] [address] [place], [address] Basophils/100 WBC (Bld) 0.5 % Normal 0-1 [facility] Comment on above: Performed By: #### M 8200.2203, L3890.6006, L500.4050, L509.8002, L3400.1610, L501.2450, L100.0100 #### [facility] [address] [place], [address] Eosinophils/100 WBC (Bld) 0.4 % Normal 0-5 [facility] Comment on above: Performed By: #### M 8200.2203, L3890.6006, L500.4050, L509.8002, L3400.1610, L501.2450, L100.0100 #### [facility] [address] [place], [address] Erythrocyte distribution width (RBC) [Ratio] 13.4 % Normal 11.6-14.6 [facility] Comment on above: Performed By: #### M 8200.2203, L3890.6006, L500.4050, L509.8002, L3400.1610, L501.2450, L100.0100 #### [facility] [address] [place], [address] Hematocrit (Bld) [Volume fraction] 46.4 % Normal 37-47 [facility] Comment on above: Performed By: #### M 8200.2203, L3890.6006, L500.4050, L509.8002, L3400.1610, L501.2450, L100.0100 #### [facility] [address] [place], [address] Hemoglobin (Bld) [Mass/Vol] 15.3 g/dL High 12.0-15.0 [facility] Comment on above: Performed By: #### M 8200.2203, L3890.6006, L500.4050, L509.8002, L3400.1610, L501.2450, L100.0100 #### [facility] [address] [place], [address] IG% 0.200 Normal 0.0-0.9 [facility] Comment on above: Result Comment: IG% - Immature Granulocytes (promyelocytes, myelocytes and metamyelocytes) > 1% indicates that a LEFT SHIFT is Present. Performed By: #### M 8200.2203, L3890.6006, L500.4050, L509.8002, L3400.1610, L501.2450, L100.0100 #### [facility] [address] [place], [address] Lymphocytes/100 WBC (Bld) 26.1 % Normal 19-41 [facility] Comment on above: Performed By: #### M 8200.2203, L3890.6006, L500.4050, L509.8002, L3400.1610, L501.2450, L100.0100 #### [facility] [address] [place], [address] MCH (RBC) [Entitic mass] 28.0 pg Normal 27.0-32.0 [facility] Comment on above: Performed By: #### M 8200.2203, L3890.6006, L500.4050, L509.8002, L3400.1610, L501.2450, L100.0100 #### [facility] [address] [place], [address] MCHC (RBC) [Mass/Vol] 33.0 g/dL Normal 32-36 [facility] Comment on above: Performed By: #### M 8200.2203, L3890.6006, L500.4050, L509.8002, L3400.1610, L501.2450, L100.0100 #### [facility] [address] [place], [address] MCV (RBC) [Entitic vol] 84.8 fL Normal 81-99 [facility] Comment on above: Performed By: #### M 8200.2203, L3890.6006, L500.4050, L509.8002, L3400.1610, L501.2450, L100.0100 #### [facility] [address] [place], [address] Monocytes/100 WBC (Bld) 4.2 % Normal 0-10 [facility] Comment on above: Performed By: #### M 8200.2203, L3890.6006, L500.4050, L509.8002, L3400.1610, L501.2450, L100.0100 #### [facility] [address] [place], [address] Neutrophils/100 WBC (Bld) 68.6 % Normal 47-70 [facility] Comment on above: Performed By: #### M 8200.2203, L3890.6006, L500.4050, L509.8002, L3400.1610, L501.2450, L100.0100 #### [facility] [address] [place], [address] Nucleated RBC (Bld) [#/Vol] 0 10*3/uL Normal 0-5 [facility] Comment on above: Performed By: #### M 8200.2203, L3890.6006, L500.4050, L509.8002, L3400.1610, L501.2450, L100.0100 #### [facility] [address] [place], [address] Platelet mean volume (Bld) [Entitic vol] 9.6 fL Normal 6.2-12.0 [facility] Comment on above: Performed By: #### M 8200.2203, L3890.6006, L500.4050, L509.8002, L3400.1610, L501.2450, L100.0100 #### [facility] [address] [place], [address] Platelets (Bld) [#/Vol] 347 10*3/uL Normal 150-450 [facility] Comment on above: Performed By: #### M 8200.2203, L3890.6006, L500.4050, L509.8002, L3400.1610, L501.2450, L100.0100 #### [facility] [address] [place], [address] RBC (Bld) [#/Vol] 5.47 10*6/uL High 4.2-5.4 [facility] Comment on above: Performed By: #### M 8200.2203, L3890.6006, L500.4050, L509.8002, L3400.1610, L501.2450, L100.0100 #### [facility] [address] [place], [address] RDW SD 42.0 fl Normal 35.1-43.9 [facility] Comment on above: Performed By: #### M 8200.2203, L3890.6006, L500.4050, L509.8002, L3400.1610, L501.2450, L100.0100 #### [facility] [address] [place], [address] WBC (Bld) [#/Vol] 8.4 10*3/uL Normal 4.4-11.0 [facility] Comment on above: Performed By: #### M 8200.2203, L3890.6006, L500.4050, L509.8002, L3400.1610, L501.2450, L100.0100 #### [facility] [address] [place], [address] Carbon dioxide, total [Moles /volume] in Central venous bloodOrdered By: Esteban Noel on 11-17-2024 CO2 [Moles/Vol] 25.9 mmol/L 21.0-32.0 [facility] Chlamydia and Neisseria gono rrhoeae detection by PCROrdered By: Esteban Noel on 11-17-2024 Chlamydia/Neisseria (PCR) [facility] Chloride assayOrdered By: Dwight Noel on 11-17-2024 Chloride [Moles/Vol] 99 mmol/L 98-108 [facility] Comprehensive Metabolic Prof ilon 11-17-2024 Albumin [Mass/Vol] 4.5 g/dL Normal 3.5-5.0 [facility] Comment on above: Performed By: #### M 8200.2203, L3890.6006, L500.4050, L509.8002, L3400.1610, L501.2450, L100.0100 #### [facility] [address] [place], [address] Albumin/Globulin [Mass ratio] 1.2 {ratio} Normal 0.9-2.4 [facility] Comment on above: Performed By: #### M 8200.2203, L3890.6006, L500.4050, L509.8002, L3400.1610, L501.2450, L100.0100 #### [facility] [address] [place], [address] ALK PHOS 112 U/L High 35-104 [facility] Comment on above: Performed By: #### M 8200.2203, L3890.6006, L500.4050, L509.8002, L3400.1610, L501.2450, L100.0100 #### [facility] [address] [place], [address] ALT [Catalytic activity/Vol] 20 U/L Normal <=34 [facility] Comment on above: Performed By: #### M 8200.2203, L3890.6006, L500.4050, L509.8002, L3400.1610, L501.2450, L100.0100 #### [facility] [address] [place], [address] AST [Catalytic activity/Vol] 22 U/L Normal <=31 [facility] Comment on above: Performed By: #### M 8200.2203, L3890.6006, L500.4050, L509.8002, L3400.1610, L501.2450, L100.0100 #### [facility] [address] [place], [address] Bilirubin [Mass/Vol] 0.36 mg/dL Normal 0.00-1.30 [facility] Comment on above: Performed By: #### M 8200.2203, L3890.6006, L500.4050, L509.8002, L3400.1610, L501.2450, L100.0100 #### [facility] [address] [place], [address] BUN/CRE 20.4 RATIO High 10-20 [facility] Comment on above: Performed By: #### M 8200.2203, L3890.6006, L500.4050, L509.8002, L3400.1610, L501.2450, L100.0100 #### [facility] [address] [place], [address] Calcium [Mass/Vol] 9.9 mg/dL Normal 7.6-11.0 [facility] Comment on above: Performed By: #### M 8200.2203, L3890.6006, L500.4050, L509.8002, L3400.1610, L501.2450, L100.0100 #### [facility] [address] [place], [address] Chloride [Moles/Vol] 99 mmol/L Normal 98-108 [facility] Comment on above: Performed By: #### M 8200.2203, L3890.6006, L500.4050, L509.8002, L3400.1610, L501.2450, L100.0100 #### [facility] [address] [place], [address] CO2 [Moles/Vol] 25.9 mmol/L Normal 21.0-32.0 [facility] Comment on above: Performed By: #### M 8200.2203, L3890.6006, L500.4050, L509.8002, L3400.1610, L501.2450, L100.0100 #### [facility] [address] [place], [address] Creatinine [Mass/Vol] 0.60 mg/dL Low 0.70-1.20 [facility] Comment on above: Performed By: #### M 8200.2203, L3890.6006, L500.4050, L509.8002, L3400.1610, L501.2450, L100.0100 #### [facility] [address] [place], [address] GAP 16 High 5-15 [facility] Comment on above: Performed By: #### M 8200.2203, L3890.6006, L500.4050, L509.8002, L3400.1610, L501.2450, L100.0100 #### [facility] [address] [place], [address] GFR/1.73 sq M.predicted among non-blacks MDRD (S/P/Bld) [Vol rate/Area] 109 mL/min/{1.73_m2} Normal >60 [facility] Comment on above: Result Comment: mL/m in/1.73m2 CKD-EPI Creatinine Equation (2020) Performed By: #### M 8200.2203, L3890.6006, L500.4050, L509.8002, L3400.1610, L501.2450, L100.0100 #### [facility] [address] [place], [address] Globulin (S) [Mass/Vol] 3.7 g/dL Normal 2.2-4.2 [facility] Comment on above: Performed By: #### M 8200.2203, L3890.6006, L500.4050, L509.8002, L3400.1610, L501.2450, L100.0100 #### [facility] [address] [place], [address] Glucose [Mass/Vol] 163 mg/dL High 70-99 [facility] Comment on above: Performed By: #### M 8200.2203, L3890.6006, L500.4050, L509.8002, L3400.1610, L501.2450, L100.0100 #### [facility] [address] [place], [address] Potassium [Moles/Vol] 4.1 mmol/L Normal 3.3-5.1 [facility] Comment on above: Performed By: #### M 8200.2203, L3890.6006, L500.4050, L509.8002, L3400.1610, L501.2450, L100.0100 #### [facility] [address] [place], [address] Sodium [Moles/Vol] 140 mmol/L Normal 133-145 [facility] Comment on above: Performed By: #### M 8200.2203, L3890.6006, L500.4050, L509.8002, L3400.1610, L501.2450, L100.0100 #### [facility] [address] [place], [address] T PROT 8.1 g/dL Normal 5.9-8.4 [facility] Comment on above: Performed By: #### M 8200.2203, L3890.6006, L500.4050, L509.8002, L3400.1610, L501.2450, L100.0100 #### [facility] [address] [place], [address] Urea nitrogen [Mass/Vol] 12 mg/dL Normal 4-19 [facility] Comment on above: Performed By: #### M 8200.2203, L3890.6006, L500.4050, L509.8002, L3400.1610, L501.2450, L100.0100 #### [facility] [address] [place], [address] Eosinophil percentageOrdered By: Esteban Noel on 11-17-2024 Eosinophils/100 WBC (Bld) 0.4 % 0-5 [facility] Erythrocyte distribution wid th ratioOrdered By: Esteban Noel on 11-17-2024 Erythrocyte distribution width (RBC) [Ratio] 13.4 % 11.6-14.6 [facility] Erythrocyte distribution wid th standard deviationOrdered By: Esteban Noel on 11-17-2024 Erythrocyte distribution width (RBC) [Entitic vol] 42.0 fL 35.1-43.9 [facility] GFR/1.73 sq M.predicted alicia g non-blacks MDRD (S/P/Bld) [Vol rate/Area]Ordered By: Esteban Noel on 11-17-2024 Estimated GFR (MDRD) Non-Af Amer 109 >60 [facility] Comment on above: mL/min/1.73m2 CKD-EP I Creatinine Equation (2020) HSV 2 Ab IA Qn (S)Ordered By : Esteban Noel on 03-27-2025 Herpes Simplex Virus II IgG Ab See comment [facility] Comment on above: RESULT: REACTIVEPl ease note reference interval changeCurrent guidelines and recommendations do not recommendroutine screening for HSV-2 in asymptomatic individuals,including those that are . The detection of HSV-2IgG antibodies in a single sample indicates previousexposure to HSV-2 but does not give information as to thesite of HSV infection or the timing of exposure. Thepredictive value of positive and negative results dependson the population's prevalence and the pretest likelihoodof HSV-2. HSV-2 IgG testing performed using the [employer] HSV-2 IgG assay.Performed at: [address] [id number] Director: Manjinder Sandy PhD, Phone: [phone] Hematocrit Auto (Bld) [Volum e fraction]Ordered By: Esteban Noel on 11-17-2024 Hematocrit (Bld) [Volume fraction] 46.4 % 37-47 [facility] Hemoglobin measurementOrdere d By: Esteban Noel on 11-17-2024 Hemoglobin (Bld) [Mass/Vol] 15.3 g/dL High 12.0-15.0 [facility] Herpes simplex virus (HSV) t ype 1 IgG antibody assayOrdered By: Esteban Noel on 11-17-2024 Herpes Simplex Virus I IgG Antibody See comment [facility] Comment on above: RESULT: REACTIVEPl ease note reference interval changeHSV-1 IgG testing performed using the [employer] HSV-1IgG assay. Immature granulocytes/100 WB C Auto (Bld)Ordered By: Esteban Noel on 11-17-2024 Immature granulocytes/100 WBC (Bld) 0.200 % 0.0-0.9 [facility] Comment on above: IG% - Immature Granu locytes (promyelocytes, myelocytes and metamyelocytes) > 1% indicates that a LEFT SHIFT is Present. L3890.6006on 11-17-2024 HIV Non-Reactive Normal Nonreactive [facility] Comment on above: Result Comment: Non- Reactive Reactive Repeatedly reactive samples must be confirmed according to CDC recommended confirmatory algorithms. The subresults for either HIVAG or AHIV can be used as an aid in the selection of the confirmation algorithm for reactive samples. Send out specimens with Reactive results to [facility] for confirmation. Order the HIV antibody detection and differentiation: [id number] Performed By: #### L 500.2500, L100.0100, L501.9985 #### [facility] [address] [place], [address] L509.8002on 11-17-2024 Syphilis Abs Non-Reactive Normal Nonreactive [facility] Comment on above: Performed By: #### M 8200.2203, L3890.6006, L500.4050, L509.8002, L3400.1610, L501.2450, L100.0100 #### [facility] [address] [place], [place], [id number] Laboratory - Chemistry and C hemistry - challengeOrdered By: Esteban Noel on 11-17-2024 AST [Catalytic activity/Vol] 22 U/L <32 [facility] Lipaseon 11-17-2024 Lipase [Catalytic activity/Vol] 26 U/L Normal 13-75 [facility] Comment on above: Result Comment: Plea note: LIPASE revised reference range effective 22. New Lipase methodology. Expected to produce lower values than the previous assay method. NEW Reference Range: 13 - 75 U/L Performed By: #### L 500.2500, L100.0100, L501.9985 #### [facility] [address] [place], [place], [id number] Lipase measurementOrdered By : Esteban Noel on 11-17-2024 Lipase [Catalytic activity/Vol] 26 U/L 13-75 [facility] Comment on above: Please note:LIPASE r evised reference range effective 22. New Lipase methodology. Expected to produce lower values than the previous assay method. NEW Reference Range: 13 - 75 U/L Lymphocytes Auto (Unsp spec) [#/Vol]Ordered By: Esteban Noel on 11-17-2024 Lymphocytes (Bld) [#/Vol] 2.18 10*3/uL 0.83-4.51 [facility] Lymphocytes/100 WBC Auto (Un sp spec)Ordered By: Esteban Noel on 11-17-2024 Lymphocytes/100 WBC (Bld) 26.1 % 19-41 [facility] [id number] 11-17-2024 [id number] Pending Chlamydia Trachomatis PCR NEGATIVE for Chlamydia trachomatis N. gonorrhoeae PCR Negative for N. gonorrhoeae Normal [facility] Comment on above: Performed By: #### L 500.2500, L100.0100, L501.9985 #### [facility] [address] [place], [address] MCV (mean corpuscular volume ) determinationOrdered By: Esteban Noel on 11-17-2024 MCV (RBC) [Entitic vol] 84.8 fL 81-99 [facility] Mean corpuscular hemoglobin (MCH) determinationOrdered By: Esteban Noel on 11-17-2024 MCH (RBC) [Entitic mass] 28.0 pg 27.0-32.0 [facility] Mean corpuscular hemoglobin concentration (MCHC) determinationOrdered By: Esteban Noel on 11-17-2024 MCHC (RBC) [Mass/Vol] 33.0 g/dL 32-36 [facility] Mean platelet volume determi nationOrdered By: Esteban Noel on 11-17-2024 Platelet mean volume (Bld) [Entitic vol] 9.6 fL 6.2-12.0 [facility] Monocyte percentageOrdered B y: Esteban Noel on 11-17-2024 Monocytes/100 WBC (Bld) 4.2 % 0-10 [facility] Neutrophil percentageOrdered By: Esteban Noel on 11-17-2024 Neutrophils/100 WBC (Bld) 68.6 % 47-70 [facility] No Panel InformationOrdered By: Esteban Noel on 11-17-2024 HIV (1&2) Antibody Non-Reactive Nonreactive [facility] Comment on above: Non-ReactiveReactive Repeatedly reactive samples must be confirmed according to CDC recommended confirmatory algorithms. The subresults for either HIVAG or AHIV can be used as an aid in the selection of the confirmation algorithm for reactive samples.Send out specimens with Reactive results to [facility] for confirmation.Order the HIV antibody detection and differentiation: #[id number] Nucleated red blood cell per centageOrdered By: Esteban Noel on 11-17-2024 Nucleated RBC/100 WBC (Bld) [Ratio] 0 % 0-5 [facility] Platelet countOrdered By: Dwight Noel on 11-17-2024 Platelets (Bld) [#/Vol] 347 10*3/uL 150-450 [facility] Potassium (Unsp spec) [Mass/ Vol]Ordered By: Esteban Noel on 11-17-2024 Potassium [Moles/Vol] 4.1 mmol/L 3.3-5.1 [facility] RBC Auto (Bld) [#/Vol]Ordere d By: Esteban Noel on 11-17-2024 RBC (Bld) [#/Vol] 5.47 10*6/uL High 4.2-5.4 [facility] Serum creatinine measurement (mass/volume)Ordered By: Esteban Noel on 11-17-2024 Creatinine [Mass/Vol] 0.60 mg/dL Low 0.70-1.20 [facility] Serum globulin measurementOr dered By: Esteban Noel on 11-17-2024 Globulin (S) [Mass/Vol] 3.7 g/dL 2.2-4.2 [facility] Serum glucose measurement (m ass/volume)Ordered By: Esteban Noel on 11-17-2024 Glucose [Mass/Vol] 163 mg/dL High 70-99 [facility] Serum or plasma alanine schmid otransferase (ALT) measurementOrdered By: Esteban Noel on 11-17-2024 ALT [Catalytic activity/Vol] 20 U/L <35 [facility] Serum or plasma albumin jesus urement (mass/volume)Ordered By: Esteban Noel on 11-17-2024 Albumin [Mass/Vol] 4.5 g/dL 3.5-5.0 [facility] Serum or plasma albumin/glob ulin mass ratioOrdered By: Esteban Noel on 11-17-2024 Albumin/Globulin [Mass ratio] 1.2 {ratio} 0.9-2.4 [facility] Serum or plasma alkaline rhett sphatase measurementOrdered By: Esteban Noel on 11-17-2024 ALP [Catalytic activity/Vol] 112 U/L High 35-104 [facility] Serum or plasma calcium jesus urement (mass/volume)Ordered By: Esteban Noel on 11-17-2024 Calcium [Mass/Vol] 9.9 mg/dL 7.6-11.0 [facility] Serum or plasma urea nitroge n measurement (mass/volume)Ordered By: Esteban Noel on 11-17-2024 Urea nitrogen [Mass/Vol] 12 mg/dL 4-19 [facility] Sodium levelOrdered By: Esteban Noel on 11-17-2024 Sodium [Moles/Vol] 140 mmol/L 133-145 [facility] T. pallidum abOrdered By: Dwight Noel on 11-17-2024 Syphilis Total Antibody Non-Reactive Nonreactiv e [facility] Total proteinOrdered By: Lani Noel on 11-17-2024 Protein [Mass/Vol] 8.1 g/dL 5.9-8.4 [facility] White blood cell (WBC) count Ordered By: Esteban Noel on 11-17-2024 WBC (Bld) [#/Vol] 8.4 10*3/uL 4.4-11.0 [facility] Albumin DL <= 20 mg/L (U) [M ass/Vol]Ordered By: Esteban Noel on 11-08-2024 Urine Random Microalbumin 20.0 mg/L NO RANGE EST. [facility] Anion gap in Serum or Plasma Ordered By: Esteban Noel on 11-08-2024 Anion gap [Moles/Vol] 14 mmol/L 5-15 [facility] BUN/creatinine ratioOrdered By: Esteban Noel on 11-08-2024 Urea nitrogen/Creatinine [Mass ratio] 21.0 mg/mg High 10-20 [facility] Bilirubin, totalOrdered By: Esteban Noel on 11-08-2024 Bilirubin [Mass/Vol] 0.30 mg/dL 0.00-1.30 [facility] Calculated very low density lipoprotein (VLDL) cholesterol measurementOrdered By: Esteban Noel on 11-08-2024 VLDL Cholesterol 98 mg/dL High 5-40 [facility] Carbon dioxide, total [Moles /volume] in Central venous bloodOrdered By: Esteban Noel on 11-08-2024 CO2 [Moles/Vol] 25.0 mmol/L 21.0-32.0 [facility] Chloride assayOrdered By: Dwight Noel on 11-08-2024 Chloride [Moles/Vol] 102 mmol/L 98-108 [facility] Comprehensive Metabolic Prof ilon 11-08-2024 Albumin [Mass/Vol] 4.2 g/dL Normal 3.5-5.0 [facility] Comment on above: Performed By: #### L 500.2500, L100.0100, L501.9985 #### [facility] [address] [place], [address] Albumin/Globulin [Mass ratio] 1.1 {ratio} Normal 0.9-2.4 [facility] Comment on above: Performed By: #### L 500.2500, L100.0100, L501.9985 #### [facility] [address] [place], [address] ALK PHOS 106 U/L High 35-104 [facility] Comment on above: Performed By: #### L 500.2500, L100.0100, L501.9985 #### [facility] [address] [place], [address] ALT [Catalytic activity/Vol] 15 U/L Normal <=34 [facility] Comment on above: Performed By: #### L 500.2500, L100.0100, L501.9985 #### [facility] [address] [place], [address] AST [Catalytic activity/Vol] 23 U/L Normal <=31 [facility] Comment on above: Performed By: #### L 500.2500, L100.0100, L501.9985 #### [facility] [address] [place], [address] Bilirubin [Mass/Vol] 0.30 mg/dL Normal 0.00-1.30 [facility] Comment on above: Performed By: #### L 500.2500, L100.0100, L501.9985 #### [facility] [address] [place], [address] BUN/CRE 21.0 RATIO High 10-20 [facility] Comment on above: Performed By: #### L 500.2500, L100.0100, L501.9985 #### [facility] [address] [place], [address] Calcium [Mass/Vol] 9.4 mg/dL Normal 7.6-11.0 [facility] Comment on above: Performed By: #### L 500.2500, L100.0100, L501.9985 #### [facility] [address] [place], [address] Chloride [Moles/Vol] 102 mmol/L Normal 98-108 [facility] Comment on above: Performed By: #### L 500.2500, L100.0100, L501.9985 #### [facility] [address] [place], [address] CO2 [Moles/Vol] 25.0 mmol/L Normal 21.0-32.0 [facility] Comment on above: Performed By: #### L 500.2500, L100.0100, L501.9985 #### [facility] [address] [place], [address] Creatinine [Mass/Vol] 0.63 mg/dL Low 0.70-1.20 [facility] Comment on above: Performed By: #### L 500.2500, L100.0100, L501.9985 #### [facility] [address] [place], [address] GAP 14 Normal 5-15 [facility] Comment on above: Performed By: #### L 500.2500, L100.0100, L501.9985 #### [facility] [address] [place], [address] GFR/1.73 sq M.predicted among non-blacks MDRD (S/P/Bld) [Vol rate/Area] 107 mL/min/{1.73_m2} Normal >60 [facility] Comment on above: Result Comment: mL/m in/1.73m2 CKD-EPI Creatinine Equation (2020) Performed By: #### L 500.2500, L100.0100, L501.9985 #### [facility] [address] [place], [address] Globulin (S) [Mass/Vol] 3.7 g/dL Normal 2.2-4.2 [facility] Comment on above: Performed By: #### L 500.2500, L100.0100, L501.9985 #### [facility] [address] [place], [address] Glucose [Mass/Vol] 167 mg/dL High 70-99 [facility] Comment on above: Performed By: #### L 500.2500, L100.0100, L501.9985 #### [facility] [address] [place], [address] Potassium [Moles/Vol] 4.0 mmol/L Normal 3.3-5.1 [facility] Comment on above: Performed By: #### L 500.2500, L100.0100, L501.9985 #### [facility] [address] [place], [address] Sodium [Moles/Vol] 141 mmol/L Normal 133-145 [facility] Comment on above: Performed By: #### L 500.2500, L100.0100, L501.9985 #### [facility] [address] [place], [address] T PROT 7.9 g/dL Normal 5.9-8.4 [facility] Comment on above: Performed By: #### L 500.2500, L100.0100, L501.9985 #### [facility] [address] [place], [address] Urea nitrogen [Mass/Vol] 13 mg/dL Normal 4-19 [facility] Comment on above: Performed By: #### L 500.2500, L100.0100, L501.9985 #### [facility] [address] [place], [address] Creatinine Unsp time (U) [Ma ss/Vol]Ordered By: Esteban Noel on 11-08-2024 Creatinine (U) [Mass/Vol] 150.00 mg/dL 28-217 [facility] GFR/1.73 sq M.predicted alicia g non-blacks MDRD (S/P/Bld) [Vol rate/Area]Ordered By: Esteban Noel on 11-08-2024 Estimated GFR (MDRD) Non-Af Amer 107 >60 [facility] Comment on above: mL/min/1.73m2 CKD-EP I Creatinine Equation (2020) LDL calc ser/plasOrdered By: Esteban Noel on 11-08-2024 LDL Cholesterol, Calculated 103 mg/dL [facility] Comment on above: Pvpjehhzpa=000-130 m g/dL & Higher Hnxs=412 mg/dL or greater Laboratory - Chemistry and C hemistry - challengeOrdered By: Esteban Noel on 11-08-2024 AST [Catalytic activity/Vol] 23 U/L <32 [facility] Lipid Profileon 11-08-2024 CHOL:HDL 6.15 Normal [facility] Comment on above: Performed By: #### L 500.2500, L100.0100, L501.9985 #### [facility] [address] [place], [address] Cholesterol [Mass/Vol] 241 mg/dL High <=200 [facility] Comment on above: Result Comment: Chol esterol level, Desirable <200 mg/dL Borderline high cholesterol 200-239 mg/dL High cholesterol >=240 mg/dL Recommendations of the NCEP Adult Treatment Panel for the following risk-cutoff thresholds for the [place] population. Performed By: #### L 500.2500, L100.0100, L501.9985 #### [facility] [address] [place], [address] Cholesterol in HDL [Mass/Vol] 39 mg/dL Low [facility] Comment on above: Result Comment: Cristela onal Cholesterol Education Program (NCEP) guidelines: <40 mg/dL: Low HDL-cholesterol (major risk factor for CHD) >= 60 mg/dL: High HDL-cholesterol (negative risk factor for CHD) HDL-cholesterol is affected by a number of factors, e.g. smoking, exercise, hormones, sex and age. Performed By: #### L 500.2500, L100.0100, L501.9985 #### [facility] [address] [place], [address] Cholesterol in LDL [Mass/Vol] 103 mg/dL Normal [facility] Comment on above: Result Comment: Bord vtgfie=910-054 mg/dL Higher Vrff=579 mg/dL or greater Performed By: #### L 500.2500, L100.0100, L501.9985 #### [facility] [address] [place], [address] Cholesterol in VLDL [Mass/Vol] 98 mg/dL High 5-40 [facility] Comment on above: Performed By: #### L 500.2500, L100.0100, L501.9985 #### [facility] [address] [place], [address] Triglyceride [Mass/Vol] 492 mg/dL High [facility] Comment on above: Result Comment: The drugs N-Acetylcysteine and Metamizole may falsely depress this assay. Normal range: <150 mg/dL Borderline High: 150-199 mg/dL High: 200-499 mg/dL Very High: >500 mg/dL Performed By: #### L 500.2500, L100.0100, L501.9985 #### [facility] [address] [place], [address] Microalb:Creat Ratio,Random URon 11-08-2024 Creatinine [Mass/Vol] 150.00 mg/dL Normal 28-217 [facility] Comment on above: Performed By: #### L 500.2500, L100.0100, L501.9985 #### [facility] [address] [place], [address] MALB:CREAT 133.3 mg/g CRE Normal [facility] Comment on above: Performed By: #### L 500.2500, L100.0100, L501.9985 #### [facility] [address] [place], [address] MICROALBUMIN,UR 20.0 mg/L Normal NO RANGE EST. [facility] Comment on above: Performed By: #### L 500.2500, L100.0100, L501.9985 #### [facility] [address] [place], [address] Microalbumin/creat ratio urO rdered By: Esteban Noel on 11-08-2024 Urine Microalbumin/Creatinine Ratio 133.3 mg/g CRE [facility] Potassium (Unsp spec) [Mass/ Vol]Ordered By: Esteban Noel on 11-08-2024 Potassium [Moles/Vol] 4.0 mmol/L 3.3-5.1 [facility] Screening total cholesterol/ high density lipoprotein (HDL) cholesterol ratioOrdered By: Esteban Noel on 11-08-2024 Cholesterol.total/Lora sterol in HDL [Mass ratio] 6.15 {ratio} [facility] Serum creatinine measurement (mass/volume)Ordered By: Esteban Noel on 11-08-2024 Creatinine [Mass/Vol] 0.63 mg/dL Low 0.70-1.20 [facility] Serum globulin measurementOr dered By: Esteban Noel on 11-08-2024 Globulin (S) [Mass/Vol] 3.7 g/dL 2.2-4.2 [facility] Serum glucose measurement (m ass/volume)Ordered By: Esteban Noel on 11-08-2024 Glucose [Mass/Vol] 167 mg/dL High 70-99 [facility] Serum or plasma alanine schmid otransferase (ALT) measurementOrdered By: Esteban Noel on 11-08-2024 ALT [Catalytic activity/Vol] 15 U/L <35 [facility] Serum or plasma albumin jesus urement (mass/volume)Ordered By: Esteban Noel on 11-08-2024 Albumin [Mass/Vol] 4.2 g/dL 3.5-5.0 [facility] Serum or plasma albumin/glob ulin mass ratioOrdered By: Esteban Noel on 11-08-2024 Albumin/Globulin [Mass ratio] 1.1 {ratio} 0.9-2.4 [facility] Serum or plasma alkaline rhett sphatase measurementOrdered By: Esteban Noel on 11-08-2024 ALP [Catalytic activity/Vol] 106 U/L High 35-104 [facility] Serum or plasma calcium jesus urement (mass/volume)Ordered By: Esteban Noel on 11-08-2024 Calcium [Mass/Vol] 9.4 mg/dL 7.6-11.0 [facility] Serum or plasma cholesterol in HDL measurement (mass/volume)Ordered By: Esteban Noel on 11-08-2024 Cholesterol in HDL [Mass/Vol] 39 mg/dL Low >40 [facility] Comment on above: National Cholesterol Education Program (NCEP) guidelines:<40 mg/dL: Low HDL-cholesterol (major risk factor for CHD)>= 60 mg/dL: High HDL-cholesterol (negative risk factor for CHD)HDL-cholesterol is affected by a number of factors, e.g. smoking, exercise, hormones, sex and age. Serum or plasma cholesterol measurement (mass/volume)Ordered By: Esteban Noel on 11-08-2024 Cholesterol [Mass/Vol] 241 mg/dL High <201 [facility] Comment on above: Cholesterol level, D esirable <200 mg/dLBorderline high cholesterol 200-239 mg/dLHigh cholesterol >=240 mg/dLRecommendations of the NCEP Adult Treatment Panel for the following risk-cutoff thresholds for the [place] population. Serum or plasma urea nitroge n measurement (mass/volume)Ordered By: Esteban Noel on 11-08-2024 Urea nitrogen [Mass/Vol] 13 mg/dL 4-19 [facility] Sodium levelOrdered By: Esteban Noel on 11-08-2024 Sodium [Moles/Vol] 141 mmol/L 133-145 [facility] Total proteinOrdered By: Lani Noel on 11-08-2024 Protein [Mass/Vol] 7.9 g/dL 5.9-8.4 [facility] Triglycerides measurementOrd ered By: Esteban Noel on 11-08-2024 Triglyceride [Mass/Vol] 492 mg/dL High <199 [facility] Comment on above: The drugs N-Acetylcy steine and Metamizole may falsely depress this assay. Normal range: <150 mg/dLBorderline High: 150-199 mg/dLHigh: 200-499 mg/dLVery High: >500 mg/dL L3410.9999on 09-22-2024 [facility] Misc. COMMENT Normal . [facility] Comment on above: Order Comment: SENDMariya BHATTI TO LAB [id number] WOUND CULTURE Result Comment: Test Ordered: [id number] Anaerobic/Aerobic/Gram Stain Anaerobic Culture Note: CB Final report Reference Range: . Result 1 Comment CB Reference Range: . No anaerobic growth in 72 hours. Aerobic Culture Note: [A ] CB Final report Reference Range: . Result 1 Note: [A ] CB Staphylococcus aureus Reference Range: . Based on susceptibility to oxacillin this isolate would be susceptible to: *Penicillinase-stable penicillins, such as: Cloxacillin, Dicloxacillin, Nafcillin *Beta-lactam combination agents, such as: Amoxicillin-clavulanic acid, Ampicillin-sulbactam, Piperacillin-tazobactam *Oral cephems, such as: Cefaclor, Cefdinir, Cefpodoxime, Cefprozil, Cefuroxime, Cephalexin, Loracarbef *Parenteral cephems, such as: Cefazolin, Cefepime, Cefotaxime, Cefotetan, Ceftaroline, Ceftizoxime, Ceftriaxone, Cefuroxime *Carbapenems, such as: Doripenem, Ertapenem, Imipenem, Meropenem Heavy growth Antimicrobial Susceptibility Comment CB Reference Range: . S = Susceptible; I = Intermediate; R = Resistant P = Positive; N = Negative MICS are expressed in micrograms per mL Antibiotic RSLT#1 RSLT#2 RSLT#3 RSLT#4 Ciprofloxacin S Clindamycin S Erythromycin S Gentamicin S Levofloxacin S Linezolid S Moxifloxacin S Oxacillin S Penicillin R Quinupristin/Dalfopristin S Rifampin S Tetracycline S Trimethoprim/Sulfa R Vancomycin S Gram Stain Result Note: CB Final report Reference Range: . Result 1 Comment CB Reference Range: . Few white blood cells. Result 2 Comment CB Reference Range: . Moderate number of gram positive cocci. Performed at: - [facility] [id number] [place]: Manjinder Sandy PhD, Phone: [phone] Performed By: #### L 501.080 #### [facility] [address] [place], [place], [id number] Bedside Glucoseon 09-17-2024 FINGERSTICK GLU 121 mg/dL High [address] [place] [address] Comment on above: Result Comment: LEXI PULIDO OF PATIENT CARE PER NURSING PROTOCOL Performed By: #### L 500.2500, L100.0100, L501.9985 #### [facility] [address] [place], [place], [id number] Gl[facility] deOrdered By: Brennan Mariano on 09-17-2024 Bedside Glucose (Misc Panel) 121 mg/dL High [address] [place] [address] Comment on above: MANAGEMENT OF PATIEN T CARE PER NURSING PROTOCOL Vancomycin trough [Mass/Vol] Ordered By: [place] on 09-17-2024 Vancomycin Level Trough 4.6 ug/mL Low 5.0-15.0 [facility] Comment on above: VANCOMYCIN STANDARED DRUG THERAPY TROUGH LEVEL: 5.0 - 15.0 mg/L VANCOMYCIN HIGH INTENSITY THERAPY TROUGH LEVEL: 15.0 - 20.0 mg/L High Intensity therapy recommended for serious lifethreatening infections include:- Sapzkdvhwf-Cpcerxnakuwe-Wayoohpzw (Ventilator/Healtcare Associated)-Sepsis PLEASE CONTACT PHARMACY SERVICES (#[id number]) FOR INTERPRETATIONOF RESULTS. Vancomycin, Trough Levelon 0 09-17-2024 VANCO, TROUGH 4.6 ug/mL Low 5.0-15.0 [facility] Comment on above: Order Comment: Comme nts: DRAW 30 MIN PRIOR TO [id number] Result Comment: VANC OMYCIN STANDARED DRUG THERAPY TROUGH LEVEL: 5.0 - 15.0 mg/L VANCOMYCIN HIGH INTENSITY THERAPY TROUGH LEVEL: 15.0 - 20.0 mg/L High Intensity therapy recommended for serious life threatening infections include: - Meningitis -Endocarditis -Pneumonia (Ventilator/Healtcare Associated) -Sepsis PLEASE CONTACT PHARMACY SERVICES (#[id number]) FOR INTERPRETATION OF RESULTS. Performed By: #### L 501.080 #### [facility] [address] [place], [address] Absolute neutrophil countOrd ered By: Silver [place] on 09-16-2024 Neutrophils (Bld) [#/Vol] 9.6 10*3/uL High 2.0-7.7 [facility] Basic Metabolic Profile (BMP )on 09-16-2024 BUN/CRE 12.5 RATIO Normal 10-20 [facility] Comment on above: Performed By: #### L 500.2500, L100.0100, L501.9985 #### [facility] [address] [place], [address] CA,Total 9.0 mg/dL Normal 8.5-10.1 [facility] Comment on above: Performed By: #### L 500.2500, L100.0100, L501.9985 #### [facility] [address] [place], [address] Chloride [Moles/Vol] 101 mmol/L Normal 98-107 [facility] Comment on above: Performed By: #### L 500.2500, L100.0100, L501.9985 #### [facility] [address] [place], [address] CO2 [Moles/Vol] 25.0 mmol/L Normal 21.0-32.0 [facility] Comment on above: Performed By: #### L 500.2500, L100.0100, L501.9985 #### [facility] [address] [place], [address] Creatinine [Mass/Vol] 0.56 mg/dL Normal 0.55-1.02 [facility] Comment on above: Result Comment: The validity of the calculated GFR GFRAA in patients over 70 years has not been determined. Clinical correlation is essential. Performed By: #### L 500.2500, L100.0100, L501.9985 #### [facility] [address] [place], [address] ECRCL 107.27 ml/min Normal [facility] Comment on above: Performed By: #### L 500.2500, L100.0100, L501.9985 #### [facility] [address] [place], [address] EST GFR - AA 147 mL/min Normal >60 [facility] Comment on above: Result Comment: Afri can Swazi GFR Calc Performed By: #### L 500.2500, L100.0100, L501.9985 #### [facility] [address] [place], [address] GAP 7 Normal 5-15 [facility] Comment on above: Performed By: #### L 500.2500, L100.0100, L501.9985 #### [facility] [address] [place], [address] GFR/1.73 sq M.predicted among non-blacks MDRD (S/P/Bld) [Vol rate/Area] 121 mL/min/{1.73_m2} Normal >60 [facility] Comment on above: Result Comment: Non- GFR Calc Performed By: #### L 500.2500, L100.0100, L501.9985 #### [facility] [address] [place], [address] Glucose [Mass/Vol] 235 mg/dL High 74-106 [facility] Comment on above: Result Comment: Gluc ose result greater than or equal to 200 mg/dL suggests DIABETES MELLITUS per A.D.A. criteria. Performed By: #### L 500.2500, L100.0100, L501.9985 #### [facility] [address] [place], [address] Potassium [Moles/Vol] 3.6 mmol/L Normal 3.5-5.1 [facility] Comment on above: Performed By: #### L 500.2500, L100.0100, L501.9985 #### [facility] [address] [place], [address] Sodium [Moles/Vol] 133 mmol/L Low 136-145 [facility] Comment on above: Performed By: #### L 500.2500, L100.0100, L501.9985 #### [facility] [address] [place], [address] Urea nitrogen [Mass/Vol] 7 mg/dL Normal 7-18 [facility] Comment on above: Performed By: #### L 500.2500, L100.0100, L501.9985 #### [facility] [address] [place], [address] Basophil percentageOrdered B y: Silver Pazjosh on 09-16-2024 Basophils/100 WBC (Bld) 0.2 % 0-1 [facility] Bedside Glucoseon 09-16-2024 FINGERSTICK GLU 424 mg/dL High 74-106 [facility] Comment on above: Result Comment: LEXI GEMENT OF PATIENT CARE PER NURSING PROTOCOL Performed By: #### L 500.2500, L100.0100, L501.9985 #### [facility] [address] [place], [address] FINGERSTICK GLU 317 mg/dL High 74-106 [facility] Comment on above: Result Comment: LEXI GEMENT OF PATIENT CARE PER NURSING PROTOCOL Performed By: #### L 501.080 #### [facility] [address] [place], [address] FINGERSTICK GLU 275 mg/dL High 74-106 [facility] Comment on above: Result Comment: LEXI PULIDO OF PATIENT CARE PER NURSING PROTOCOL Performed By: #### L 501.080 #### [facility] [address] [place], [address] Blood urea nitrogen (BUN)/cr eatinine ratioOrdered By: Silver Hill on 09-16-2024 Urea nitrogen/Creatinine [Mass ratio] 12.5 mg/mg 10-20 [facility] CBC W/Diff, Automatedon 08-25 Absolute Lymph 3.18 X10 3/uL Normal 0.83-4.51 [facility] Comment on above: Performed By: #### L 500.2500, L100.0100, L501.9985 #### [facility] [address] [place], [address] Absolute Neut 9.6 X10 3/uL High 2.0-7.7 [facility] Comment on above: Performed By: #### L 500.2500, L100.0100, L501.9985 #### [facility] [address] [place], [address] Basophils/100 WBC (Bld) 0.2 % Normal 0-1 [facility] Comment on above: Performed By: #### L 500.2500, L100.0100, L501.9985 #### [facility] [address] [place], [address] Eosinophils/100 WBC (Bld) 1.2 % Normal 0-5 [facility] Comment on above: Performed By: #### L 500.2500, L100.0100, L501.9985 #### [facility] [address] [place], [address] Erythrocyte distribution width (RBC) [Ratio] 12.8 % Normal 11.6-14.6 [facility] Comment on above: Performed By: #### L 500.2500, L100.0100, L501.9985 #### [facility] [address] [place], [address] Hematocrit (Bld) [Volume fraction] 38.7 % Normal 37-47 [facility] Comment on above: Performed By: #### L 500.2500, L100.0100, L501.9985 #### [facility] [address] [place], [address] Hemoglobin (Bld) [Mass/Vol] 12.8 g/dL Normal 12.0-15.0 [facility] Comment on above: Performed By: #### L 500.2500, L100.0100, L501.9985 #### [facility] [address] [place], [address] IG% 0.500 Normal 0.0-0.9 [facility] Comment on above: Result Comment: IG% - Immature Granulocytes (promyelocytes, myelocytes and metamyelocytes) > 1% indicates that a LEFT SHIFT is Present. Performed By: #### L 500.2500, L100.0100, L501.9985 #### [facility] [address] [place], [address] Lymphocytes/100 WBC (Bld) 23.2 % Normal 19-41 [facility] Comment on above: Performed By: #### L 500.2500, L100.0100, L501.9985 #### [facility] [address] [place], [address] MCH (RBC) [Entitic mass] 27.4 pg Normal 27.0-32.0 [facility] Comment on above: Performed By: #### L 500.2500, L100.0100, L501.9985 #### [facility] [address] [place], [address] MCHC (RBC) [Mass/Vol] 33.1 g/dL Normal 32-36 [facility] Comment on above: Performed By: #### L 500.2500, L100.0100, L501.9985 #### [facility] [address] [place], [address] MCV (RBC) [Entitic vol] 82.9 fL Normal 81-99 [facility] Comment on above: Performed By: #### L 500.2500, L100.0100, L501.9985 #### [facility] [address] [place], [address] Monocytes/100 WBC (Bld) 5.2 % Normal 0-10 [facility] Comment on above: Performed By: #### L 500.2500, L100.0100, L501.9985 #### [facility] [address] [place], [address] Neutrophils/100 WBC (Bld) 69.7 % Normal 47-70 [facility] Comment on above: Performed By: #### L 500.2500, L100.0100, L501.9985 #### [facility] [address] [place], [address] Nucleated RBC (Bld) [#/Vol] 0 10*3/uL Normal 0-5 [facility] Comment on above: Performed By: #### L 500.2500, L100.0100, L501.9985 #### [facility] [address] [place], [address] Platelet mean volume (Bld) [Entitic vol] 9.7 fL Normal 6.2-12.0 [facility] Comment on above: Performed By: #### L 500.2500, L100.0100, L501.9985 #### [facility] [address] [place], [address] Platelets (Bld) [#/Vol] 274 10*3/uL Normal 150-450 [facility] Comment on above: Performed By: #### L 500.2500, L100.0100, L501.9985 #### [facility] [address] [place], [address] RBC (Bld) [#/Vol] 4.67 10*6/uL Normal 4.2-5.4 [facility] Comment on above: Performed By: #### L 500.2500, L100.0100, L501.9985 #### [facility] [address] [place], [address] RDW SD 38.6 fl Normal 35.1-43.9 [facility] Comment on above: Performed By: #### L 500.2500, L100.0100, L501.9985 #### [facility] [address] [place], [address] WBC (Bld) [#/Vol] 13.7 10*3/uL High 4.4-11.0 [facility] Comment on above: Performed By: #### L 500.2500, L100.0100, L501.9985 #### [facility] [address] [place], [address] Carbon dioxide measurementOr dered By: Silver Hill on 09-16-2024 CO2 [Moles/Vol] 25.0 mmol/L 21.0-32.0 [facility] Chloride measurementOrdered By: Silver Hill on 09-16-2024 Chloride [Moles/Vol] 101 mmol/L 98-107 [facility] Eosinophil percentageOrdered By: Silver Hill on 09-16-2024 Eosinophils/100 WBC (Bld) 1.2 % 0-5 [facility] Erythrocyte distribution wid th ratioOrdered By: Silver Hill on 09-16-2024 Erythrocyte distribution width (RBC) [Ratio] 12.8 % 11.6-14.6 [facility] Erythrocyte distribution wid th standard deviationOrdered By: Silver Hill on 09-16-2024 Erythrocyte distribution width (RBC) [Entitic vol] 38.6 fL 35.1-43.9 [facility] Estimated glomerular filtrat ion rate (GFR) AmericanOrdered By: Silver Hill on 09-16-2024 Estimated GFR (MDRD) Amer 147 mL/min >60 [facility] Comment on above: GFR Calc Estimation of creatinine leonidas aranceOrdered By: Silver Hill on 09-16-2024 Estimated Creatinine Clearance Calc 107.27 ml/min [facility] Glomerular filtration rate ( GFR) estimationOrdered By: Silver Hill on 09-16-2024 Estimated GFR (MDRD) Non-Af Amer 121 mL/min >60 [facility] Comment on above: Non- GFR Calc Glucose measurementOrdered B y: Silver Hill on 09-16-2024 Glucose [Mass/Vol] 235 mg/dL High 74-106 [facility] Comment on above: Glucose result great er than or equal to 200 mg/dLsuggests DIABETES MELLITUS per A.D.A. criteria. Hematocrit Auto (Bld) [Volum e fraction]Ordered By: Silver Hill on 09-16-2024 Hematocrit (Bld) [Volume fraction] 38.7 % 37-47 [facility] Hemoglobin A1con 09-16-2024 HbA1c (Bld) [Mass fraction] 11.0 % High 3.8-5.6 [facility] Comment on above: Result Comment: Norm al < 5.7 % Prediabetic 5.7 - 6.4 % Diabetic >or= 6.5 % Please note range changes. Performed By: #### L 500.2500, L100.0100, L501.9985 #### [facility] [facility] [place], [address] Hemoglobin A1c percentageOrd ered By: Silver Hill on 09-16-2024 HbA1c (Bld) [Mass fraction] 11.0 % High 3.8-5.6 [facility] Comment on above: Normal < 5.7 % Predi abetic 5.7 - 6.4 % Diabetic >or= 6.5 % Please note range changes. Hemoglobin measurementOrdere d By: Silver Hill on 09-16-2024 Hemoglobin (Bld) [Mass/Vol] 12.8 g/dL 12.0-15.0 [facility] Immature granulocytes/100 WB C Auto (Bld)Ordered By: Silver Hill on 09-16-2024 Immature granulocytes/100 WBC (Bld) 0.500 % 0.0-0.9 [facility] Comment on above: IG% - Immature Granu locytes (promyelocytes, myelocytes and metamyelocytes) > 1% indicates that a LEFT SHIFT is Present. Lymphocytes Auto (Unsp spec) [#/Vol]Ordered By: Silver Hill on 09-16-2024 Lymphocytes (Bld) [#/Vol] 3.18 10*3/uL 0.83-4.51 [facility] Lymphocytes/100 WBC Auto (Un sp spec)Ordered By: Silver Hill on 09-16-2024 Lymphocytes/100 WBC (Bld) 23.2 % 19-41 [facility] MCV (mean corpuscular volume ) determinationOrdered By: Silver Hill on 09-16-2024 MCV (RBC) [Entitic vol] 82.9 fL 81-99 [facility] Mean corpuscular hemoglobin (MCH) determinationOrdered By: Silver Hill on 09-16-2024 MCH (RBC) [Entitic mass] 27.4 pg 27.0-32.0 [facility] Mean corpuscular hemoglobin concentration (MCHC) determinationOrdered By: Silver Hill on 09-16-2024 MCHC (RBC) [Mass/Vol] 33.1 g/dL 32-36 [facility] Mean platelet volume determi nationOrdered By: Silver Hill on 09-16-2024 Platelet mean volume (Bld) [Entitic vol] 9.7 fL 6.2-12.0 [facility] Monocyte percentageOrdered B y: Silver Hill on 09-16-2024 Monocytes/100 WBC (Bld) 5.2 % 0-10 [facility] Neutrophil percentageOrdered By: Silver Hill on 09-16-2024 Neutrophils/100 WBC (Bld) 69.7 % 47-70 [facility] Nucleated red blood cell per centageOrdered By: Silver Hill on 09-16-2024 Nucleated RBC/100 WBC (Bld) [Ratio] 0 % 0-5 [facility] Platelet countOrdered By: Lilliam Hill on 09-16-2024 Platelets (Bld) [#/Vol] 274 10*3/uL 150-450 [facility] Potassium measurementOrdered By: Silver Hill on 09-16-2024 Potassium [Moles/Vol] 3.6 mmol/L 3.5-5.1 [facility] RBC Auto (Bld) [#/Vol]Ordere d By: Silver Hill on 09-16-2024 RBC (Bld) [#/Vol] 4.67 10*6/uL 4.2-5.4 [facility] Serum anion gap measurementO rdered By: Silver Hill on 09-16-2024 Anion gap [Moles/Vol] 7 mmol/L 5-15 [facility] Serum or plasma calcium jesus urement (mass/volume)Ordered By: Silver Hill on 09-16-2024 Calcium [Mass/Vol] 9.0 mg/dL 8.5-10.1 [facility] Serum or plasma creatinine m easurement (mass/volume)Ordered By: Silver Hill on 09-16-2024 Creatinine [Mass/Vol] 0.56 mg/dL 0.55-1.02 [facility] Comment on above: The validity of the calculated GFR & GFRAA in patients over 70 years has not been determined. Clinical correlation is essential. Serum or plasma urea nitroge n measurement (mass/volume)Ordered By: Silver Hill on 09-16-2024 Urea nitrogen [Mass/Vol] 7 mg/dL 7-18 [facility] Sinus/Facial Bone WITH Contr ason 09-16-2024 Sinus/Facial Bone WITH Contras [facility] [address] [place], [place] [id number] Sinus/Facial Bone WITH Contras MR#: [id number] Acct: [id number] Name: FREDDY SURESH Rep #: [id number] : 1975 F 48 From: Jonnathan holguin MD PCP: Dr. Esteban Noel MD Status: ADM MIKI Study: Sinus/Facial Bone WITH Contras Date of Exam: 0 09/16/24 Exam# [id number] Ordering Dr: Brennan Mariano DO [id number] STUDY: CT FACIAL BONES WITH CONTRAST REASON FOR EXAM: Female, 48 years old. Left lip cellulitis. Cavities on left RADIATION DOSAGE (If Supplied By Facility): CTDIvol = ( 29.38 ) mGy, DLP = ( 620.92 ) mGycm TECHNIQUE: The patient was scanned in a multi detector CT scanner. Transaxial imaging was performed following the intravenous administration of IV 75mL Isovue-370. Sagittal and coronal images were reconstructed. Individualized dose optimization techniques were used for this CT. COMPARISON: None. FINDINGS: There is a soft tissue prominence in the subcutaneous tissues overlying the left side of the mandible extending to the midline. Lesser degree of swelling along the right side of the midline. There is evidence of overlying skin thickening. There is evidence of enhancing lymph nodes in the submental region more prominent on the left side measuring 1.2 cm. No bony destruction is seen. Normal orbital vasquez and orbital contents. Normal nasal bones and anterior nasal spine. Normal facial bones. There is no demonstrated fracture. Normal visualized paranasal sinuses. CT/Sinus/Facial Bone WITH Contras IMPRESSION: Soft tissue swelling overlying the left-sided mandible extending anteriorly into the right-sided midline suggestive of a inflammatory change. Mildly enlarged lymph nodes in the subcutaneous mental region. Electronically Signed: Jonnathan Beebe MD at 11:05 EST , CC: Dr. Brennan Mariano DO; Dr. Esteban Noel MD Network Operations Analyst: Signed Normal [facility] Sodium levelOrdered By: Moreno Hill on 09-16-2024 Sodium [Moles/Vol] 133 mmol/L Low 136-145 [facility] White blood cell (WBC) count Ordered By: Silver Hill on 09-16-2024 WBC (Bld) [#/Vol] 13.7 10*3/uL High 4.4-11.0 [facility] Basic Metabolic Profile (BMP )on 09-15-2024 BUN/CRE 11.0 RATIO Normal 10-20 [facility] Comment on above: Performed By: #### L 500.2500, L100.0100, L501.9985 #### [facility] [address] [place], [address] CA,Total 9.2 mg/dL Normal 8.5-10.1 [facility] Comment on above: Performed By: #### L 500.2500, L100.0100, L501.9985 #### [facility] [address] [place], [address] Chloride [Moles/Vol] 94 mmol/L Low 98-107 [facility] Comment on above: Performed By: #### L 500.2500, L100.0100, L501.9985 #### [facility] [address] [place], [address] CO2 [Moles/Vol] 23.0 mmol/L Normal 21.0-32.0 [facility] Comment on above: Performed By: #### L 500.2500, L100.0100, L501.9985 #### [facility] [address] [place], [address] Creatinine [Mass/Vol] 1.09 mg/dL High 0.55-1.02 [facility] Comment on above: Result Comment: The validity of the calculated GFR GFRAA in patients over 70 years has not been determined. Clinical correlation is essential. Performed By: #### L 500.2500, L100.0100, L501.9985 #### [facility] [address] [place], [address] ECRCL 55.80 ml/min Normal [facility] Comment on above: Performed By: #### L 500.2500, L100.0100, L501.9985 #### [facility] [address] [place], [address] EST GFR - AA 68 mL/min Normal >60 [facility] Comment on above: Result Comment: Afri can Swazi GFR Calc Performed By: #### L 500.2500, L100.0100, L501.9985 #### [facility] [address] [place], [address] GAP 10 Normal 5-15 [facility] Comment on above: Performed By: #### L 500.2500, L100.0100, L501.9985 #### [facility] [address] [place], [address] GFR/1.73 sq M.predicted among non-blacks MDRD (S/P/Bld) [Vol rate/Area] 56 mL/min/{1.73_m2} Low >60 [facility] Comment on above: Result Comment: Non- GFR Calc Performed By: #### L 500.2500, L100.0100, L501.9985 #### [facility] [address] [place], [address] Glucose [Mass/Vol] 639 mg/dL Invalid Interpretation Code 74-106 [facility] Comment on above: Result Comment: Crit ical Result(s) Called at: 17:03:53 09/15/2024 by: ANGELITO HARDIN TO ASHLEIGH BREWSTER. Results read back by same. Glucose result greater than or equal to 200 mg/dL suggests DIABETES MELLITUS per A.D.A. criteria. Performed By: #### L 500.2500, L100.0100, L501.9985 #### [facility] [address] [place], [address] Potassium [Moles/Vol] 3.8 mmol/L Normal 3.5-5.1 [facility] Comment on above: Performed By: #### L 500.2500, L100.0100, L501.9985 #### [facility] [address] [place], [address] Sodium [Moles/Vol] 127 mmol/L Low 136-145 [facility] Comment on above: Performed By: #### L 500.2500, L100.0100, L501.9985 #### [facility] [address] [place], [address] Urea nitrogen [Mass/Vol] 12 mg/dL Normal 7-18 [facility] Comment on above: Performed By: #### L 500.2500, L100.0100, L501.9985 #### [facility] [address] [place], [address] Bedside Glucoseon 09-15-2024 FINGERSTICK GLU 233 mg/dL High 74-106 [facility] Comment on above: Result Comment: LEXI GEMENT OF PATIENT CARE PER NURSING PROTOCOL Performed By: #### L 500.2500, L100.0100, L501.9985 #### [facility] [address] [place], [address] FINGERSTICK GLU 440 mg/dL High 74-106 [facility] Comment on above: Result Comment: LEXI GEMENT OF PATIENT CARE PER NURSING PROTOCOL Performed By: #### L 500.2500, L100.0100, L501.9985 #### [facility] [address] [place], [address] CBC W/Diff, Automatedon 08-25 Absolute Lymph 1.97 X10 3/uL Normal 0.83-4.51 [facility] Comment on above: Performed By: #### L 500.2500, L100.0100, L501.9985 #### [facility] [address] [place], [address] Absolute Neut 12.3 X10 3/uL High 2.0-7.7 [facility] Comment on above: Performed By: #### L 500.2500, L100.0100, L501.9985 #### [facility] [address] [place], [address] Basophils/100 WBC (Bld) 0.3 % Normal 0-1 [facility] Comment on above: Performed By: #### L 500.2500, L100.0100, L501.9985 #### [facility] [address] [place], [address] Eosinophils/100 WBC (Bld) 0.4 % Normal 0-5 [facility] Comment on above: Performed By: #### L 500.2500, L100.0100, L501.9985 #### [facility] [address] [place], [address] Erythrocyte distribution width (RBC) [Ratio] 12.9 % Normal 11.6-14.6 [facility] Comment on above: Performed By: #### L 500.2500, L100.0100, L501.9985 #### [facility] [address] [place], [address] Hematocrit (Bld) [Volume fraction] 43.7 % Normal 37-47 [facility] Comment on above: Performed By: #### L 500.2500, L100.0100, L501.9985 #### [facility] [address] [place], [address] Hemoglobin (Bld) [Mass/Vol] 14.5 g/dL Normal 12.0-15.0 [facility] Comment on above: Performed By: #### L 500.2500, L100.0100, L501.9985 #### [facility] [address] [place], [address] IG% 0.500 Normal 0.0-0.9 [facility] Comment on above: Result Comment: IG% - Immature Granulocytes (promyelocytes, myelocytes and metamyelocytes) > 1% indicates that a LEFT SHIFT is Present. Performed By: #### L 500.2500, L100.0100, L501.9985 #### [facility] [address] [place], [address] Lymphocytes/100 WBC (Bld) 13.0 % Low 19-41 [facility] Comment on above: Performed By: #### L 500.2500, L100.0100, L501.9985 #### [facility] [address] [place], [address] MCH (RBC) [Entitic mass] 27.9 pg Normal 27.0-32.0 [facility] Comment on above: Performed By: #### L 500.2500, L100.0100, L501.9985 #### [facility] [address] [place], [address] MCHC (RBC) [Mass/Vol] 33.2 g/dL Normal 32-36 [facility] Comment on above: Performed By: #### L 500.2500, L100.0100, L501.9985 #### [facility] [address] [place], [address] MCV (RBC) [Entitic vol] 84.0 fL Normal 81-99 [facility] Comment on above: Performed By: #### L 500.2500, L100.0100, L501.9985 #### [facility] [address] [place], [address] Monocytes/100 WBC (Bld) 4.8 % Normal 0-10 [facility] Comment on above: Performed By: #### L 500.2500, L100.0100, L501.9985 #### [facility] [address] [place], [address] Neutrophils/100 WBC (Bld) 81.0 % High 47-70 [facility] Comment on above: Performed By: #### L 500.2500, L100.0100, L501.9985 #### [facility] [address] [place], [address] Nucleated RBC (Bld) [#/Vol] 0 10*3/uL Normal 0-5 [facility] Comment on above: Performed By: #### L 500.2500, L100.0100, L501.9985 #### [facility] [address] [place], [address] Platelet mean volume (Bld) [Entitic vol] 9.6 fL Normal 6.2-12.0 [facility] Comment on above: Performed By: #### L 500.2500, L100.0100, L501.9985 #### [facility] [address] [place], [address] Platelets (Bld) [#/Vol] 277 10*3/uL Normal 150-450 [facility] Comment on above: Performed By: #### L 500.2500, L100.0100, L501.9985 #### [facility] [address] [place], [address] RBC (Bld) [#/Vol] 5.20 10*6/uL Normal 4.2-5.4 [facility] Comment on above: Performed By: #### L 500.2500, L100.0100, L501.9985 #### [facility] [address] [place], [address] RDW SD 39.6 fl Normal 35.1-43.9 [facility] Comment on above: Performed By: #### L 500.2500, L100.0100, L501.9985 #### [facility] [address] [place], [address] WBC (Bld) [#/Vol] 15.2 10*3/uL High 4.4-11.0 [facility] Comment on above: Performed By: #### L 500.2500, L100.0100, L501.9985 #### [facility] [address] [place], [address] Emergency Department Summary on 09-15-2024 Emergency Department Summary [facility] Medical Records Department [address] [place] [address] Emergency Department Summary 09/15/24 MR#: [id number] Acct: [id number] Name: FREDDY SURESH Rep #: [id number] : 1975 48 From: Ruben Basilio PCP: Dr. Esteban Noel MD Status:ADM MIKI Location: [address] History of Present Illness Chief Complaint: Wound Informant: patient Narrative Narrative: Sent in by PCP for increasing lip swellings. Patient reports since Thursday. She is not on MARK inhibitor and ARB. She has been on Ozempic injection for years. Subjective fevers. Denies injuries. Notable trouble swallowing. She is a diabetic. Also reports she notes a bump on her right gluteal provide noticed over the last week she has had issues with the area in the past requiring surgical intervention. Prior similar symptoms: No PFSH PFSH Medical History Hypercholesterolemia Diabetes Home Medications ???Medication ???Instructions ???Recorded ???Last Taken ???Type duloxetine 60 mg capsule,delayed 60 mg PO QHS 09/15/24 09/12/24 History release empagliflozin 25 mg tablet 25 mg PO DAILY 09/15/24 09/12/24 History (Jardiance) glimepiride 4 mg tablet 4 mg PO BID 09/15/24 09/12/24 History insulin glargine 100 unit/mL (3 35 unit subcut QHS 09/15/24 09/12/24 History mL) subcutaneous pen (Lantus Solostar U-100 Insulin) omeprazole 40 mg capsule,delayed 40 mg PO DAILY 09/15/24 09/12/24 History release Allergy/AdvReac Type Severity Reaction Status Date / Time No Known Allergies Allergy Verified 09/15/24 15:54 Family History (Updated 09/15/24 @ 20:[address] Silver Hill MD) Other Diabetes Surgical History History of cholecystectomy Social History Smoking Status: Never smoker ROS ROS ED Constitutional Constitutional ED: Reports fever(s); Denies chills or sweats ENT ENT ED: Reports other Details: Left upper lip swelling ; Denies sore throat Cardiovascular Cardiovascular: Denies chest pain, leg edema, palpitations or racing heartbeat Respiratory/Chest Respiratory/Chest: Denies cough, dyspnea or dyspnea on exertion Gastrointestinal Gastrointestinal: Denies abdominal pain, diarrhea, nausea or vomiting Genitourinary Genitourinary ED: Denies dysuria, hematuria or urinary frequency Musculoskeletal Musculoskeletal: Denies back pain, extremity pain or neck pain Integumentary Reports abscess; Denies rash or wounds Neurologic Neurologic: Denies headache(s), paresthesias or weakness EXAM Physical Exam Const Vital Signs: 09/15/24 15:54 09/15/24 16:56 09/15/24 17:00 Temperature 97.9 F 98.5 F 98.5 F Temperature Source Oral Oral Oral Pulse Rate 120 H 103 H 103 H Respiratory Rate 16 16 18 Blood Pressure 139/85 H 108/65 106/65 Blood Pressure Mean 103 79 78 Pulse Ox 99 97 97 Oxygen Delivery Method Room Air Room Air Room Air 09/15/24 18:00 Temperature 97.8 F Temperature Source Oral Pulse Rate 98 Respiratory Rate 16 Blood Pressure 102/58 L Blood Pressure Mean 72 Pulse Ox 98 Oxygen Delivery Method Room Air Positive well nourished and well developed General Appearance ED: well developed and NAD HEENT Reports moist mucous membranes HEENT Narrative: Swelling left upper lip with induration palpated more laterally, area coming to ahead more at the edge of the lip. There is no active drainage. No tongue swelling. Airway patent. normocephalic and atraumatic Eyes General Eye ED: Yes normal appearance of both eyes Neck full ROM Chest Wall Chest: Negative for tenderness Resp normal respiratory effort and normal air movement Effort and Inspection: symmetric chest movement; Negative for respiratory distress Cardio regular rhythm and no murmurs Rate: tachycardic Peripheral Pulses: pulses 2+ throughout GI normal to inspection, nondistended, normoactive bowel sounds and non-tender Palpation: Negative for guarding or rebound tenderness present Extremity normal to inspection General Extremety ED: Negative for edema or tenderness General Extremity: Negative for edema Neuro oriented x3 and no sensory deficits noted Sensorium / Orientation: awake and alert 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 Previous scars were noted. No cellulitic findings. MDM MDM MDM Narrative Medical decision making narrative: Interventions / MDM: Differential diagnosis: Left upper lip abscess, diabetic hyperglycemia Diagnosis considered but do not suspect: Diabetic ketoacidosis however labs within norm (more content not included)... Normal [facility] H AND P Exam - [place] 09-15-2024 H&P Exam - Hospitalist [facility] Medical Records Department [address] [place] [address] H P Exam - Hospitalist 09/15/24 1818 MR#: [id number] Acct: [id number] Name: FREDDY SURESH Rep #: [id number] : 1975 48 From: [place] MD PCP: Dr. Esteban Noel MD Status:ADM MIKI Location: [place] [address] HPI - General General Date of Admission: 09/15/24 Date of Service: 09/15/24 Chief Complaint: Left lip swelling HPI Narrative FREDDY GOMEZ, is a 48 F with a significant history of diabetes mellitus on long-term insulin who presents to the emergency department with 3-day history of progressively worsening of her left upper lip. Associated with her symptoms is severe pain at her lips. She denies any subjective fever. Her PCP sent her to the emergency department. At the emergency department she was found to have abscess at her left upper lip that that was lanced and cultures taken. Also patient reported right gluteal lesion that was assessed by ED doctor. Per ED doctor right upper lesion was lanced without any abscess or cellulitic change. [facility] Medical History Hypercholesterolemia Diabetes Home Medications ???Medication ???Instructions ???Recorded ???Last Taken ???Type duloxetine 60 mg capsule,delayed 60 mg PO QHS 09/15/24 09/12/24 History release empagliflozin 25 mg tablet 25 mg PO DAILY 09/15/24 09/12/24 History (Jardiance) glimepiride 4 mg tablet 4 mg PO BID 09/15/24 09/12/24 History insulin glargine 100 unit/mL (3 35 unit subcut QHS 09/15/24 09/12/24 History mL) subcutaneous pen (Lantus Solostar U-100 Insulin) omeprazole 40 mg capsule,delayed 40 mg PO DAILY 09/15/24 09/12/24 History release Allergy/AdvReac Type Severity Reaction Status Date / Time No Known Allergies Allergy Verified 09/15/24 15:54 Family History (Updated 09/15/24 @ 20:[address] [place] MD) Other Diabetes Surgical History History of cholecystectomy Social History Smoking Status: Never smoker ROS ROS Narrative Complete review of system is negative except as stated in HPI. Vital Signs Vital Signs Vital Signs: 09/15/24 15:54 09/15/24 16:56 09/15/24 17:00 Temperature 97.9 F 98.5 F 98.5 F Temperature Source Oral Oral Oral Pulse Rate 120 H 103 H 103 H Respiratory Rate 16 16 18 Blood Pressure 139/85 H 108/65 106/65 Blood Pressure Mean 103 79 78 Pulse Ox 99 97 97 Oxygen Delivery Method Room Air Room Air Room Air 09/15/24 18:00 Temperature 97.8 F Temperature Source Oral Pulse Rate 98 Respiratory Rate 16 Blood Pressure 102/58 L Blood Pressure Mean 72 Pulse Ox 98 Oxygen Delivery Method Room Air Weight Weight: 67.948 kg Body Mass Index (BMI) 27.3 Physical Exam Narrative Physical exam: General: Crying secondary to pain. Well-nourished, well-developed. Head: Normocephalic, atraumatic, no tenderness Eyes: Mild conjunctival injection. Vision is grossly intact. EOMI ENT: Swollen over the left upper lip; no rhinorrhea Neck: Nontender, No thyromegaly. CVS: Regular rate and rhythm. S1-S2 present. No murmur, gallop or rub. Respiratory : clear to auscultation bilaterally, chest wall nontender Abdomen: Soft, nontender, nondistended, normal bowel sounds, no masses : Deferred Back: Nontender, no CVA tenderness, no midline spinal tenderness, deformities, step-offs Extremities: Nontender full range of motion, no trauma Skin: Normal color, no trauma, abrasions Neuro: Alert, oriented, cranial nerves II through XII grossly intact. Psychiatry: Crying. Results Lab / Micro Data 09/15/24 16:28 09/15/24 16:28 Labs: Laboratory Results - last 24 hr 09/15/24 16:28: WBC 15.2 H, RBC 5.20, Hgb 14.5, Hct 43.7, MCV 84.0, MCH 27.9, MCHC 33.2, RDW Std Deviation 39.6, RDW Coeff of Joseluis 12.9, Plt Count 277, MPV 9.6, Immature Gran % (Auto) 0.500, Neut % (Auto) 81.0 H, Lymph % (Auto) 13.0 L, Dickson % (Auto) 4.8, Eos % (Auto) 0.4, Baso % (Auto) 0.3, A bsolute Neuts (auto) 12.3 H, Absolute Lymphs (auto) 1.97, Nucleated RBC % 0, Sodium 127 L, Potassium 3.8, Chloride 94 L, Carbon Dioxide 23.0, Anion Gap 10, BUN 12, Creatinine 1.09 H, Estim Creat Clear Calc 55.80, Est GFR (MDRD) Af Amer 68, Est GFR (MDRD) Non-Af 56 L, BUN/Creatinine Ratio 11.0, G lucose 639 H*, Calcium 9.2 09/15/24 18:00: POC Glucose 440 H Assessment Plan Assessment/Plan (1) Hyperglycemia due to diabetes mellitus: (2) Abscess of lip: (3) Hypercholesterolemia: (4) Hyponatremia: PLAN: Plan Abscess of lip Lanced at emergency department and cultures taken. Follow-up cultures. Vancomycin and cefazolin ordered. As ne (more content not included)... Normal [facility] No Panel InformationOrdered By: Ruben Su on 09-15-2024 Miscellaneous Test COMMENT . [facility] Comment on above: Test Ordered: [id number] Anaerobic/Aerobic/Gram StainAnaerobic Culture Note: Final report Reference Range: .Result 1 Comment CB Reference Range: .No anaerobic growth in 72 hours.Aerobic Culture Note: [A ] CB Final report Reference Range: .Result 1 Note: [A ] CB Staphylococcus aureus Reference Range: .Based on susceptibility to oxacillin this isolate would besusceptible to:*Penicillinase-stable penicillins, such as: Cloxacillin, Dicloxacillin, Nafcillin*Beta-lactam combination agents, such as: Amoxicillin-clavulanic acid, Ampicillin-sulbactam, Piperacillin-tazobactam*Oral cephems, such as: Cefaclor, Cefdinir, Cefpodoxime, Cefprozil, Cefuroxime, Cephalexin, Loracarbef*Parenteral cephems, such as: Cefazolin, Cefepime, Cefotaxime, Cefotetan, Ceftaroline, Ceftizoxime, Ceftriaxone, Cefuroxime*Carbapenems, such as: Doripenem, Ertapenem, Imipenem, MeropenemHeavy growthAntimicrobial Susceptibility Comment CB Reference Range: . S = Susceptible; I = Intermediate; R = Resistant P = Positive; N = Negative MICS are expressed in micrograms per mL Antibiotic RSLT#1 RSLT#2 RSLT#3 RSLT#4Ciprofloxacin SClindamycin SErythromycin SGentamicin SLevofloxacin SLinezolid SMoxifloxacin SOxacillin SPenicillin RQuinupristin/Dalfopristin SRifampin STetracycline STrimethoprim/Sulfa RVancomycin SGram Stain Result Note: CB Final report Reference Range: .Result 1 Comment CB Reference Range: .Few white blood cells.Result 2 Comment CB Reference Range: .Moderate number of gram positive cocci.Performed at: - [facility] [id number] Director: Manjinder Sandy PhD, Phone: [phone] Absolute neutrophil countOrd ered By: Jeff Parra on 08-05-2024 Neutrophils (Bld) [#/Vol] 7.4 10*3/uL 2.0-7.7 [facility] Basic Metabolic Profile (BMP )on 08-05-2024 BUN/CRE 20.3 RATIO High 10-20 [facility] Comment on above: Performed By: #### L 500.2500, L100.0100, L501.9985 #### [facility] [address] [place], [address] CA,Total 9.3 mg/dL Normal 8.5-10.1 [facility] Comment on above: Performed By: #### L 500.2500, L100.0100, L501.9985 #### [facility] [address] [place], [address] Chloride [Moles/Vol] 102 mmol/L Normal 98-107 [facility] Comment on above: Performed By: #### L 500.2500, L100.0100, L501.9985 #### [facility] [address] [place], [address] CO2 [Moles/Vol] 29.0 mmol/L Normal 21.0-32.0 [facility] Comment on above: Performed By: #### L 500.2500, L100.0100, L501.9985 #### [facility] [address] [place], [address] Creatinine [Mass/Vol] 0.64 mg/dL Normal 0.55-1.02 [facility] Comment on above: Result Comment: The validity of the calculated GFR GFRAA in patients over 70 years has not been determined. Clinical correlation is essential. Performed By: #### L 500.2500, L100.0100, L501.9985 #### [facility] [address] [place], [address] ECRCL 95.99 ml/min Normal [facility] Comment on above: Performed By: #### L 500.2500, L100.0100, L501.9985 #### [facility] [address] [place], [address] EST GFR - AA 126 mL/min Normal >60 [facility] Comment on above: Result Comment: Afri can Swazi GFR Calc Performed By: #### L 500.2500, L100.0100, L501.9985 #### [facility] [address] [place], [address] GAP 6 Normal 5-15 [facility] Comment on above: Performed By: #### L 500.2500, L100.0100, L501.9985 #### [facility] [address] [place], [address] GFR/1.73 sq M.predicted among non-blacks MDRD (S/P/Bld) [Vol rate/Area] 104 mL/min/{1.73_m2} Normal >60 [facility] Comment on above: Result Comment: Non- GFR Calc Performed By: #### L 500.2500, L100.0100, L501.9985 #### [facility] [address] [place], [address] Glucose [Mass/Vol] 229 mg/dL High 74-106 [facility] Comment on above: Result Comment: Gluc ose result greater than or equal to 200 mg/dL suggests DIABETES MELLITUS per A.D.A. criteria. Performed By: #### L 500.2500, L100.0100, L501.9985 #### [facility] [address] [place], [address] Potassium [Moles/Vol] 3.7 mmol/L Normal 3.5-5.1 [facility] Comment on above: Performed By: #### L 500.2500, L100.0100, L501.9985 #### [facility] [address] [place], [address] Sodium [Moles/Vol] 137 mmol/L Normal 136-145 [facility] Comment on above: Performed By: #### L 500.2500, L100.0100, L501.9985 #### [facility] [address] [place], [address] Urea nitrogen [Mass/Vol] 13 mg/dL Normal 7-18 [facility] Comment on above: Performed By: #### L 500.2500, L100.0100, L501.9985 #### [facility] [address] [place], [address] Basophil percentageOrdered B y: Jeff Parra on 08-05-2024 Basophils/100 WBC (Bld) 0.1 % 0-1 [facility] Blood urea nitrogen (BUN)/cr eatinine ratioOrdered By: Jeff Parra on 08-05-2024 Urea nitrogen/Creatinine [Mass ratio] 20.3 mg/mg High 10-20 [facility] CBC W/Diff, Automatedon 07-24-2023 Absolute Lymph 2.34 X10 3/uL Normal 0.83-4.51 [facility] Comment on above: Performed By: #### L 500.2500, L100.0100, L501.9985 #### [facility] [address] [place], [address] Absolute Neut 7.4 X10 3/uL Normal 2.0-7.7 [facility] Comment on above: Performed By: #### L 500.2500, L100.0100, L501.9985 #### [facility] [address] [place], [address] Basophils/100 WBC (Bld) 0.1 % Normal 0-1 [facility] Comment on above: Performed By: #### L 500.2500, L100.0100, L501.9985 #### [facility] [address] [place], [address] Eosinophils/100 WBC (Bld) 0.5 % Normal 0-5 [facility] Comment on above: Performed By: #### L 500.2500, L100.0100, L501.9985 #### [facility] [address] [place], [address] Erythrocyte distribution width (RBC) [Ratio] 13.4 % Normal 11.6-14.6 [facility] Comment on above: Performed By: #### L 500.2500, L100.0100, L501.9985 #### [facility] [address] [place], [address] Hematocrit (Bld) [Volume fraction] 43.7 % Normal 37-47 [facility] Comment on above: Performed By: #### L 500.2500, L100.0100, L501.9985 #### [facility] [address] [place], [address] Hemoglobin (Bld) [Mass/Vol] 14.3 g/dL Normal 12.0-15.0 [facility] Comment on above: Performed By: #### L 500.2500, L100.0100, L501.9985 #### [facility] [address] [place], [address] IG% 0.200 Normal 0.0-0.9 [facility] Comment on above: Result Comment: IG% - Immature Granulocytes (promyelocytes, myelocytes and metamyelocytes) > 1% indicates that a LEFT SHIFT is Present. Performed By: #### L 500.2500, L100.0100, L501.9985 #### [facility] [address] [place], [address] Lymphocytes/100 WBC (Bld) 23.0 % Normal 19-41 [facility] Comment on above: Performed By: #### L 500.2500, L100.0100, L501.9985 #### [facility] [address] [place], [address] MCH (RBC) [Entitic mass] 27.4 pg Normal 27.0-32.0 [facility] Comment on above: Performed By: #### L 500.2500, L100.0100, L501.9985 #### [facility] [address] [place], [address] MCHC (RBC) [Mass/Vol] 32.7 g/dL Normal 32-36 [facility] Comment on above: Performed By: #### L 500.2500, L100.0100, L501.9985 #### [facility] [address] [place], [address] MCV (RBC) [Entitic vol] 83.7 fL Normal 81-99 [facility] Comment on above: Performed By: #### L 500.2500, L100.0100, L501.9985 #### [facility] [address] [place], [address] Monocytes/100 WBC (Bld) 3.1 % Normal 0-10 [facility] Comment on above: Performed By: #### L 500.2500, L100.0100, L501.9985 #### [facility] [address] [place], [address] Neutrophils/100 WBC (Bld) 73.1 % High 47-70 [facility] Comment on above: Performed By: #### L 500.2500, L100.0100, L501.9985 #### [facility] [address] [place], [address] Nucleated RBC (Bld) [#/Vol] 0 10*3/uL Normal 0-5 [facility] Comment on above: Performed By: #### L 500.2500, L100.0100, L501.9985 #### [facility] [address] [place], [address] Platelet mean volume (Bld) [Entitic vol] 9.2 fL Normal 6.2-12.0 [facility] Comment on above: Performed By: #### L 500.2500, L100.0100, L501.9985 #### [facility] [address] [place], [address] Platelets (Bld) [#/Vol] 334 10*3/uL Normal 150-450 [facility] Comment on above: Performed By: #### L 500.2500, L100.0100, L501.9985 #### [facility] [address] [place], [address] RBC (Bld) [#/Vol] 5.22 10*6/uL Normal 4.2-5.4 [facility] Comment on above: Performed By: #### L 500.2500, L100.0100, L501.9985 #### [facility] [address] [place], [address] RDW SD 41.4 fl Normal 35.1-43.9 [facility] Comment on above: Performed By: #### L 500.2500, L100.0100, L501.9985 #### [facility] [address] [place], [address] WBC (Bld) [#/Vol] 10.2 10*3/uL Normal 4.4-11.0 [facility] Comment on above: Performed By: #### L 500.2500, L100.0100, L501.9985 #### [facility] [address] [place], [address] Carbon dioxide measurementOr dered By: Jeff Parra on 08-05-2024 CO2 [Moles/Vol] 29.0 mmol/L 21.0-32.0 [facility] Chloride measurementOrdered By: Jeff Parra on 08-05-2024 Chloride [Moles/Vol] 102 mmol/L 98-107 [facility] Emergency Department Summary on 08-05-2024 Emergency Department Summary [facility] Medical Records Department [address] [place] [address] Emergency Department Summary 08/05/24 MR#: [id number] Acct: [id number] Name: FREDDY SURESH Rep #: [id number] : 1975 48 From: Jeff Parra MD PCP: Dr. Esteban Noel MD Status:REG ER Location: ED HPI History of Present Illness Chief Complaint: Abd Pain Detail of Chief Complaint: Epigastric indigestion with nausea, vomiting and diarrhea Informant: patient Onset/Context/Timing Onset: Today (0300) Context: Sudden Onset Timing: Continuous Quality: Indigestion/heartburn Location: Epigastrium central chest Current Severity: Mild Maximum Severity: Moderate Worsened by: Prior to vomiting Relieved by: Nothing Associated Symptoms Associated Symptoms: Nausea, vomiting diarrhea Narrative Narrative: Patient is a 48-year-old woman who awoke at 0300 with nausea, vomiting diarrhea. She has had 3 episodes of emesis and 3 episodes of diarrhea. She denies hematemesis or coffee-ground emesis. She denies black or maroon-colored stool. She denied blood or mucus in the diarrhea. She denies ill contacts. She denies fever, chills night sweats. She does have history of type 2 diabetes on metformin and Giardia, GERD and elevated cholesterol. She is on Protonix for her GERD. Patient's had this in the past. She does not recall what she was diagnosed with. She also endorses laparoscopic surgery in [place]. Uncertain what she had done. Patient denies shortness of breath, orthopnea or PND. Patient denies cough. Prior similar symptoms: Yes Recent Illness/Hospitalizatio n: No (Last ER visit September 2023 for noncardiac chest pain) [facility] Medical History (Updated 08/05/24 @ 12:[address] Jeff Parra MD) Hypercholesterolemia Diabetes Home Medications ???Medication ???Instructions ???Recorded ???Last Taken ???Type metformin 1,000 mg tablet 1,000 mg PO DAILY 08/08/21 Unknown History rosuvastatin 20 mg tablet 20 mg PO DAILY 08/08/21 Unknown History pantoprazole 40 mg tablet,delayed 40 mg PO DAILY #30 tabs 11/14/21 Unknown Rx release (Protonix) ondansetron 4 mg disintegrating 4 mg PO Q8H PRN PRN Nausea #5 tabs 08/05/24 Unknown Rx tablet Allergy/AdvReac Type Severity Reaction Status Date / Time No Known Allergies Allergy Verified 11/14/21 13:08 Surgical History History of cholecystectomy Social History Smoking Status: Never smoker ROS ROS ED Constitutional Constitutional ED: Denies chills, fever(s), subjective, sweats or weight loss Eyes Eyes: Denies blurry vision or change in vision ENT ENT ED: Denies ear pain, rhinorrhea or sore throat Cardiovascular Cardiovascular: Reports chest pain and other Details: Chest pain with vomiting. ; Denies orthopnea, palpitations or racing heartbeat Respiratory/Chest Respiratory/Chest: Denies cough, dyspnea, dyspnea on exertion or orthopnea Gastrointestinal Gastrointestinal: Reports abdominal pain, diarrhea, nausea and vomiting; Denies constipation or melena Genitourinary Genitourinary ED: Denies dysuria, hematuria or urinary frequency Musculoskeletal Musculoskeletal: Denies arthralgias, back pain, myalgias or neck pain Integumentary Denies rash Neurologic Neurologic: Reports weakness; Denies headache(s) or paresthesias Endocrine Endocrinology: Denies cold intolerance or heat intolerance Hematologic/Lymphatic Hematologic/Lymphatic: Reports systems reviewed and no addt'l complaints, except as documented EXAM Physical Exam Const Vital Signs: 08/05/24 11:05 Temperature 97.9 F Temperature Source Oral Pulse Rate 109 H Respiratory Rate 18 Blood Pressure 117/73 Blood Pressure Mean 87 Pulse Ox 100 Oxygen Delivery Method Room Air Positive well nourished and well developed Constitutional Narrative: Vitals remarkable for heart rate of 109. General Appearance ED: well developed and NAD; Negative for pallor HEENT Reports dry mucous membranes HEENT Narrative: Head is atraumatic normocephalic. Ears normal. Nares patent. Posterior pharynx is normal. Mouth ED: Yes dry mucous membranes Mouth: dry mucous membranes Eyes PERRL and EOMs intact bilaterally General Eye ED: Negative for pale conjunctiva or scleral icterus Neck no lymphadenopathy, supple and no JVD Chest Wall inspection of chest normal and palpation of chest normal Resp normal respiratory effort and clear to auscultation bilaterally Cardio regular rhythm, S1 normal heart sound, S2 normal heart sound and no murmurs Rate: tachycardic GI non-distended and no masses; Negative for hepatosplenomegaly GI Narrative: Negative clinical Cabrera sign. Of note reviewing prior record indicates patient had a lora (more content not included)... Normal [facility] Eosinophil percentageOrdered By: Jefftheo Parra on 08-05-2024 Eosinophils/100 WBC (Bld) 0.5 % 0-5 [facility] Erythrocyte distribution wid th ratioOrdered By: Jefftheo Parra on 08-05-2024 Erythrocyte distribution width (RBC) [Ratio] 13.4 % 11.6-14.6 [facility] Erythrocyte distribution wid th standard deviationOrdered By: Jefftheo Parra on 08-05-2024 Erythrocyte distribution width (RBC) [Entitic vol] 41.4 fL 35.1-43.9 [facility] Estimated glomerular filtrat ion rate (GFR) AmericanOrdered By: Jeff Parra on 08-05-2024 Estimated GFR (MDRD) Amer 126 mL/min >60 [facility] Comment on above: GFR Calc Estimation of creatinine leonidas aranceOrdered By: Jeff Parra on 08-05-2024 Estimated Creatinine Clearance Calc 95.99 ml/min [facility] Glomerular filtration rate ( GFR) estimationOrdered By: Jeff Parra on 08-05-2024 Estimated GFR (MDRD) Non-Af Amer 104 mL/min >60 [facility] Comment on above: Non- GFR Calc Glucose measurementOrdered B y: Jeff Parra on 08-05-2024 Glucose [Mass/Vol] 229 mg/dL High 74-106 [facility] Comment on above: Glucose result great er than or equal to 200 mg/dLsuggests DIABETES MELLITUS per A.D.A. criteria. Hematocrit Auto (Bld) [Volum e fraction]Ordered By: Jeff Parra on 08-05-2024 Hematocrit (Bld) [Volume fraction] 43.7 % 37-47 [facility] Hemoglobin measurementOrdere d By: Jeff Parra on 08-05-2024 Hemoglobin (Bld) [Mass/Vol] 14.3 g/dL 12.0-15.0 [facility] Immature granulocytes/100 WB C Auto (Bld)Ordered By: Jeff Parra on 08-05-2024 Immature granulocytes/100 WBC (Bld) 0.200 % 0.0-0.9 [facility] Comment on above: IG% - Immature Granu locytes (promyelocytes, myelocytes and metamyelocytes) > 1% indicates that a LEFT SHIFT is Present. Lymphocytes Auto (Unsp spec) [#/Vol]Ordered By: Jeff Parra on 08-05-2024 Lymphocytes (Bld) [#/Vol] 2.34 10*3/uL 0.83-4.51 [facility] Lymphocytes/100 WBC Auto (Un sp spec)Ordered By: Jeff Parra on 08-05-2024 Lymphocytes/100 WBC (Bld) 23.0 % 19-41 [facility] MCV (mean corpuscular volume ) determinationOrdered By: Jeff Parra on 08-05-2024 MCV (RBC) [Entitic vol] 83.7 fL 81-99 [facility] Mean corpuscular hemoglobin (MCH) determinationOrdered By: Jefftheo Parra on 08-05-2024 MCH (RBC) [Entitic mass] 27.4 pg 27.0-32.0 [facility] Mean corpuscular hemoglobin concentration (MCHC) determinationOrdered By: Jefftheo Parra on 08-05-2024 MCHC (RBC) [Mass/Vol] 32.7 g/dL 32-36 [facility] Mean platelet volume determi nationOrdered By: Jeff Parra on 08-05-2024 Platelet mean volume (Bld) [Entitic vol] 9.2 fL 6.2-12.0 [facility] Monocyte percentageOrdered B y: Jeff Parra on 08-05-2024 Monocytes/100 WBC (Bld) 3.1 % 0-10 [facility] Neutrophil percentageOrdered By: Jefftheo Parra on 08-05-2024 Neutrophils/100 WBC (Bld) 73.1 % High 47-70 [facility] Nucleated red blood cell per centageOrdered By: Jeff Parra on 08-05-2024 Nucleated RBC/100 WBC (Bld) [Ratio] 0 % 0-5 [facility] Platelet countOrdered By: Faina theo Parra on 08-05-2024 Platelets (Bld) [#/Vol] 334 10*3/uL 150-450 [facility] Potassium measurementOrdered By: Jefftheo Parra on 08-05-2024 Potassium [Moles/Vol] 3.7 mmol/L 3.5-5.1 [facility] RBC Auto (Bld) [#/Vol]Ordere d By: Jeff Parra on 08-05-2024 RBC (Bld) [#/Vol] 5.22 10*6/uL 4.2-5.4 [facility] Serum anion gap measurementO rdered By: Jefftheo Parra on 08-05-2024 Anion gap [Moles/Vol] 6 mmol/L 5-15 [facility] Serum or plasma calcium jesus urement (mass/volume)Ordered By: Jefftheo Parra on 08-05-2024 Calcium [Mass/Vol] 9.3 mg/dL 8.5-10.1 [facility] Serum or plasma creatinine m easurement (mass/volume)Ordered By: Jefftheo Parra on 08-05-2024 Creatinine [Mass/Vol] 0.64 mg/dL 0.55-1.02 [facility] Comment on above: The validity of the calculated GFR & GFRAA in patients over 70 years has not been determined. Clinical correlation is essential. Serum or plasma urea nitroge n measurement (mass/volume)Ordered By: Jefftheo Parra on 08-05-2024 Urea nitrogen [Mass/Vol] 13 mg/dL 7-18 [facility] Sodium levelOrdered By: Jefftheo Parra on 08-05-2024 Sodium [Moles/Vol] 137 mmol/L 136-145 [facility] White blood cell (WBC) count Ordered By: Jefftheo Parra on 08-05-2024 WBC (Bld) [#/Vol] 10.2 10*3/uL 4.4-11.0 [facility] Basic Metabolic Profile (BMP )on 06-22-2024 BUN/CRE 22.5 RATIO High 10- [facility] Comment on above: Performed By: #### L 501.9520, L500.2500, L100.0100 #### [facility] [address] [place], [address] CA,Total 9.0 mg/dL Normal 8.5-10.1 [facility] Comment on above: Performed By: #### L 501.9520, L500.2500, L100.0100 #### [facility] [address] [place], [address] Chloride [Moles/Vol] 103 mmol/L Normal 98-107 [facility] Comment on above: Performed By: #### L 501.9520, L500.2500, L100.0100 #### [facility] [address] [place], [address] CO2 [Moles/Vol] 27.0 mmol/L Normal 21.0-32.0 [facility] Comment on above: Performed By: #### L 501.9520, L500.2500, L100.0100 #### [facility] [address] [place], [address] Creatinine [Mass/Vol] 0.62 mg/dL Normal 0.55-1.02 [facility] Comment on above: Result Comment: The validity of the calculated GFR GFRAA in patients over 70 years has not been determined. Clinical correlation is essential. Performed By: #### L 501.9520, L500.2500, L100.0100 #### [facility] [address] [place], [address] EST GFR - AA 130 mL/min Normal >60 [facility] Comment on above: Result Comment: Afri can Swazi GFR Calc Performed By: #### L 501.9520, L500.2500, L100.0100 #### [facility] [address] [place], [address] GAP 6 Normal 5-15 [facility] Comment on above: Performed By: #### L 501.9520, L500.2500, L100.0100 #### [facility] [address] [place], [address] GFR/1.73 sq M.predicted among non-blacks MDRD (S/P/Bld) [Vol rate/Area] 107 mL/min/{1.73_m2} Normal >60 [facility] Comment on above: Result Comment: Non- GFR Calc Performed By: #### L 501.9520, L500.2500, L100.0100 #### [facility] [address] [place], [address] Glucose [Mass/Vol] 276 mg/dL High 74-106 [facility] Comment on above: Result Comment: Gluc ose result greater than or equal to 200 mg/dL suggests DIABETES MELLITUS per A.D.A. criteria. Performed By: #### L 501.9520, L500.2500, L100.0100 #### [facility] [address] [place], [address] Potassium [Moles/Vol] 3.8 mmol/L Normal 3.5-5.1 [facility] Comment on above: Result Comment: Slig ht Hemolysis, Result may be falsely increased. Performed By: #### L 501.9520, L500.2500, L100.0100 #### [facility] [address] [place], [address] Sodium [Moles/Vol] 136 mmol/L Normal 136-145 [facility] Comment on above: Performed By: #### L 501.9520, L500.2500, L100.0100 #### [facility] [address] [place], [address] Urea nitrogen [Mass/Vol] 14 mg/dL Normal 7-18 [facility] Comment on above: Performed By: #### L 501.9520, L500.2500, L100.0100 #### [facility] [address] [place], [address] CBC W/Diff, Automatedon 10-3 0-2024 Absolute Lymph 2.37 X10 3/uL Normal 0.83-4.51 [facility] Comment on above: Performed By: #### L 501.9520, L500.2500, L100.0100 #### [facility] [address] [place], [address] Absolute Neut 6.1 X10 3/uL Normal 2.0-7.7 [facility] Comment on above: Performed By: #### L 501.9520, L500.2500, L100.0100 #### [facility] [address] [place], [address] Basophils/100 WBC (Bld) 0.3 % Normal 0-1 [facility] Comment on above: Performed By: #### L 501.9520, L500.2500, L100.0100 #### [facility] [address] [place], [address] Eosinophils/100 WBC (Bld) 1.0 % Normal 0-5 [facility] Comment on above: Performed By: #### L 501.9520, L500.2500, L100.0100 #### [facility] [address] [place], [address] Erythrocyte distribution width (RBC) [Ratio] 13.5 % Normal 11.6-14.6 [facility] Comment on above: Performed By: #### L 501.9520, L500.2500, L100.0100 #### [facility] [address] [place], [address] Hematocrit (Bld) [Volume fraction] 42.2 % Normal 37-47 [facility] Comment on above: Performed By: #### L 501.9520, L500.2500, L100.0100 #### [facility] [address] [place], [address] Hemoglobin (Bld) [Mass/Vol] 14.0 g/dL Normal 12.0-15.0 [facility] Comment on above: Performed By: #### L 501.9520, L500.2500, L100.0100 #### [facility] [address] [place], [address] IG% 0.400 Normal 0.0-0.9 [facility] Comment on above: Result Comment: IG% - Immature Granulocytes (promyelocytes, myelocytes and metamyelocytes) > 1% indicates that a LEFT SHIFT is Present. Performed By: #### L 501.9520, L500.2500, L100.0100 #### [facility] [address] [place], [address] Lymphocytes/100 WBC (Bld) 26.3 % Normal 19-41 [facility] Comment on above: Performed By: #### L 501.9520, L500.2500, L100.0100 #### [facility] [address] [place], [address] MCH (RBC) [Entitic mass] 28.4 pg Normal 27.0-32.0 [facility] Comment on above: Performed By: #### L 501.9520, L500.2500, L100.0100 #### [facility] [address] [place], [address] MCHC (RBC) [Mass/Vol] 33.2 g/dL Normal 32-36 [facility] Comment on above: Performed By: #### L 501.9520, L500.2500, L100.0100 #### [facility] [address] [place], [address] MCV (RBC) [Entitic vol] 85.6 fL Normal 81-99 [facility] Comment on above: Performed By: #### L 501.9520, L500.2500, L100.0100 #### [facility] [address] [place], [address] Monocytes/100 WBC (Bld) 4.7 % Normal 0-10 [facility] Comment on above: Performed By: #### L 501.9520, L500.2500, L100.0100 #### [facility] [address] [place], [address] Neutrophils/100 WBC (Bld) 67.3 % Normal 47-70 [facility] Comment on above: Performed By: #### L 501.9520, L500.2500, L100.0100 #### [facility] [address] [place], [address] Nucleated RBC (Bld) [#/Vol] 0 10*3/uL Normal 0-5 [facility] Comment on above: Performed By: #### L 501.9520, L500.2500, L100.0100 #### [facility] [address] [place], [address] Platelet mean volume (Bld) [Entitic vol] 9.8 fL Normal 6.2-12.0 [facility] Comment on above: Performed By: #### L 501.9520, L500.2500, L100.0100 #### [facility] [address] [place], [address] Platelets (Bld) [#/Vol] 298 10*3/uL Normal 150-450 [facility] Comment on above: Performed By: #### L 501.9520, L500.2500, L100.0100 #### [facility] [address] [place], [address] RBC (Bld) [#/Vol] 4.93 10*6/uL Normal 4.2-5.4 [facility] Comment on above: Performed By: #### L 501.9520, L500.2500, L100.0100 #### [facility] [address] [place], [address] RDW SD 42.1 fl Normal 35.1-43.9 [facility] Comment on above: Performed By: #### L 501.9520, L500.2500, L100.0100 #### [facility] [address] [place], [address] WBC (Bld) [#/Vol] 9.0 10*3/uL Normal 4.4-11.0 [facility] Comment on above: Performed By: #### L 501.9520, L500.2500, L100.0100 #### [facility] [address] [place], [address] Thyroid Stim Hormone (TSH)on 06-22-2024 TSH 0.848 uIU/mL Normal 0.358-3.740 [facility] Comment on above: Performed By: #### L 501.9520, L500.2500, L100.0100 #### [facility] [address] [place], [address] Comprehensive Metabolic Prof ilon 05-11-2024 Albumin [Mass/Vol] 3.3 g/dL Normal 3.2-5.0 [facility] Comment on above: Performed By: #### L 500.2500, L100.0100, L501.9985 #### [facility] [address] [place], [address] Albumin/Globulin [Mass ratio] 0.8 {ratio} Low 0.9-2.4 [facility] Comment on above: Performed By: #### L 500.2500, L100.0100, L501.9985 #### [facility] [address] [place], [address] ALK P 94 U/L Normal 45-117 [facility] Comment on above: Performed By: #### L 500.2500, L100.0100, L501.9985 #### [facility] [address] [place], [address] ALT [Catalytic activity/Vol] 28 U/L Normal 13-56 [facility] Comment on above: Performed By: #### L 500.2500, L100.0100, L501.9985 #### [facility] [address] [place], [address] AST [Catalytic activity/Vol] 22 U/L Normal 15-37 [facility] Comment on above: Result Comment: Slig ht Hemolysis, Result may be falsely increased. Performed By: #### L 500.2500, L100.0100, L501.9985 #### [facility] [address] [place], [address] Bilirubin [Mass/Vol] 0.20 mg/dL Normal 0.20-1.00 [facility] Comment on above: Result Comment: For patients on eltrombopag therapy, use of Dimension Gould TBIL is not recommended. Performed By: #### L 500.2500, L100.0100, L501.9985 #### [facility] [address] [place], [address] BUN/CRE 19.5 RATIO Normal 10-20 [facility] Comment on above: Performed By: #### L 500.2500, L100.0100, L501.9985 #### [facility] [address] [place], [address] CA,Total 9.0 mg/dL Normal 8.5-10.1 [facility] Comment on above: Performed By: #### L 500.2500, L100.0100, L501.9985 #### [facility] [address] [place], [address] Chloride [Moles/Vol] 97 mmol/L Low 98-107 [facility] Comment on above: Performed By: #### L 500.2500, L100.0100, L501.9985 #### [facility] [address] [place], [address] CO2 [Moles/Vol] 23.0 mmol/L Normal 21.0-32.0 [facility] Comment on above: Performed By: #### L 500.2500, L100.0100, L501.9985 #### [facility] [address] [place], [address] Creatinine [Mass/Vol] 0.77 mg/dL Normal 0.55-1.02 [facility] Comment on above: Result Comment: The validity of the calculated GFR GFRAA in patients over 70 years has not been determined. Clinical correlation is essential. Performed By: #### L 500.2500, L100.0100, L501.9985 #### [facility] [address] [place], [address] EST GFR - AA 102 mL/min Normal >60 [facility] Comment on above: Result Comment: Afri can Swazi GFR Calc Performed By: #### L 500.2500, L100.0100, L501.9985 #### [facility] [address] [place], [address] GAP 16 High 5-15 [facility] Comment on above: Performed By: #### L 500.2500, L100.0100, L501.9985 #### [facility] [address] [place], [address] GFR/1.73 sq M.predicted among non-blacks MDRD (S/P/Bld) [Vol rate/Area] 84 mL/min/{1.73_m2} Normal >60 [facility] Comment on above: Result Comment: Non- GFR Calc Performed By: #### L 500.2500, L100.0100, L501.9985 #### [facility] [address] [place], [address] Globulin (S) [Mass/Vol] 4.2 g/dL Normal 2.2-4.2 [facility] Comment on above: Performed By: #### L 500.2500, L100.0100, L501.9985 #### [facility] [address] [place], [address] Glucose [Mass/Vol] 295 mg/dL High 74-106 [facility] Comment on above: Result Comment: Gluc ose result greater than or equal to 200 mg/dL suggests DIABETES MELLITUS per A.D.A. criteria. Performed By: #### L 500.2500, L100.0100, L501.9985 #### [facility] [address] [place], [address] Potassium [Moles/Vol] 4.1 mmol/L Normal 3.5-5.1 [facility] Comment on above: Result Comment: Slig ht Hemolysis, Result may be falsely increased. Performed By: #### L 500.2500, L100.0100, L501.9985 #### [facility] [address] [place], [address] Sodium [Moles/Vol] 136 mmol/L Normal 136-145 [facility] Comment on above: Performed By: #### L 500.2500, L100.0100, L501.9985 #### [facility] [address] [place], [address] T PROT 7.5 g/dL Normal 6.4-8.2 [facility] Comment on above: Performed By: #### L 500.2500, L100.0100, L501.9985 #### [facility] [address] [place], [address] Urea nitrogen [Mass/Vol] 15 mg/dL Normal 7-18 [facility] Comment on above: Performed By: #### L 500.2500, L100.0100, L501.9985 #### [facility] [address] [place], [address] Comprehensive Metabolic Prof [facility] 03-28-2024 Albumin [Mass/Vol] 3.5 g/dL Normal 3.2-5.0 [facility] Comment on above: Performed By: #### L 501.080 #### [facility] [address] [place], [address] Albumin/Globulin [Mass ratio] 0.9 {ratio} Normal 0.9-2.4 [facility] Comment on above: Performed By: #### L 501.080 #### [facility] [address] [place], [address] ALK P 96 U/L Normal 45-117 [facility] Comment on above: Performed By: #### L 501.080 #### [facility] [address] [place], [address] ALT [Catalytic activity/Vol] 19 U/L Normal 13-56 [facility] Comment on above: Performed By: #### L 501.080 #### [facility] [address] [place], [address] AST [Catalytic activity/Vol] 23 U/L Normal 15-37 [facility] Comment on above: Performed By: #### L 501.080 #### [facility] [address] [place], [address] Bilirubin [Mass/Vol] 0.40 mg/dL Normal 0.20-1.00 [facility] Comment on above: Result Comment: For patients on eltrombopag therapy, use of Dimension Gould TBIL is not recommended. Performed By: #### L 501.080 #### [facility] [address] [place], [address] BUN/CRE 16.9 RATIO Normal 10-20 [facility] Comment on above: Performed By: #### L 501.080 #### [facility] [address] [place], [address] CA,Total 8.5 mg/dL Normal 8.5-10.1 [facility] Comment on above: Performed By: #### L 501.080 #### [facility] [address] [place], [address] Chloride [Moles/Vol] 103 mmol/L Normal 98-107 [facility] Comment on above: Performed By: #### L 501.080 #### [facility] [address] [place], [address] CO2 [Moles/Vol] 27.0 mmol/L Normal 21.0-32.0 [facility] Comment on above: Performed By: #### L 501.080 #### [facility] [address] [place], [address] Creatinine [Mass/Vol] 0.71 mg/dL Normal 0.55-1.02 [facility] Comment on above: Result Comment: The validity of the calculated GFR GFRAA in patients over 70 years has not been determined. Clinical correlation is essential. Performed By: #### L 501.080 #### [facility] [address] [place], [address] EST GFR - AA 112 mL/min Normal >60 [facility] Comment on above: Result Comment: Afri can Swazi GFR Calc Performed By: #### L 501.080 #### [facility] [address] [place], [address] GAP 8 Normal 5-15 [facility] Comment on above: Performed By: #### L 501.080 #### [facility] [address] [place], [address] GFR/1.73 sq M.predicted among non-blacks MDRD (S/P/Bld) [Vol rate/Area] 93 mL/min/{1.73_m2} Normal >60 [facility] Comment on above: Result Comment: Non- GFR Calc Performed By: #### L 501.080 #### [facility] [address] [place], [address] Globulin (S) [Mass/Vol] 4.1 g/dL Normal 2.2-4.2 [facility] Comment on above: Performed By: #### L 501.080 #### [facility] [address] [place], [address] Glucose [Mass/Vol] 92 mg/dL Normal 74-106 [facility] Comment on above: Performed By: #### L 501.080 #### [facility] [address] [place], [address] Potassium [Moles/Vol] 3.6 mmol/L Normal 3.5-5.1 [facility] Comment on above: Performed By: #### L 501.080 #### [facility] [address] [place], [address] Sodium [Moles/Vol] 138 mmol/L Normal 136-145 [facility] Comment on above: Performed By: #### L 501.080 #### [facility] [address] [place], [address] T PROT 7.6 g/dL Normal 6.4-8.2 [facility] Comment on above: Performed By: #### L 501.080 #### [facility] [address] [place], [address] Urea nitrogen [Mass/Vol] 12 mg/dL Normal 7-18 [facility] Comment on above: Performed By: #### L 501.080 #### [facility] [address] [place], [address] Lipid Profileon 03-28-2024 Cholesterol [Mass/Vol] 169 mg/dL Normal 200 [facility] Comment on above: Result Comment: <200 mg/dL Desirable 200-240 mg/dL Borderline >240 mg/dL High Risk Performed By: #### L 501.080 #### [facility] [address] [place], [address] Cholesterol in HDL [Mass/Vol] 37 mg/dL Low [facility] Comment on above: Result Comment: The drugs N-Acetylcysteine and Metamizole may falsely depress this assay. Reference Range HDL <40 mg/dL Low HDL Cholesterol HDL >or= 60 mg/dL High HDL Cholesterol Performed By: #### L 501.080 #### [facility] [address] [place], [address] Cholesterol in LDL [Mass/Vol] 87 mg/dL Normal 0-130 [facility] Comment on above: Performed By: #### L 501.080 #### [facility] [address] [place], [address] Cholesterol in VLDL [Mass/Vol] 45 mg/dL High 5-40 [facility] Comment on above: Performed By: #### L 501.080 #### [facility] [address] [place], [address] Triglyceride [Mass/Vol] 226 mg/dL High [facility] Comment on above: Result Comment: The drugs N-Acetylcysteine and Metamizole may falsely depress this assay. Serum Triglycerides Reference Interval Normal <150 mg/dL Borderline high 150 - 199 mg/dL High 200 - 499 mg/dL Very High > or = 500 mg/dL Performed By: #### L 501.080 #### [facility] [address] [place], [address] Microalb:Creat Ratio,Random URon 03-28-2024 Creatinine [Mass/Vol] 27.70 mg/dL Normal NO RANGE EST. [facility] Comment on above: Performed By: #### L 501.080 #### [facility] [address] [place], [address] MALB:CRE 26.5 mg/g CRE Normal <30 mg/g CRE [facility] Comment on above: Performed By: #### L 501.080 #### [facility] [address] [place], [place], [id number] MICROALBUMIN,UR 7.3 mg/L Normal NO RANGE EST. [facility] Comment on above: Performed By: #### L 501.080 #### [facility] [address] [place], [place], [id number] Basophil percentageOrdered B y: Esteban Noel on 12-10-2023 Bilirubin [Mass/Vol] 0.20 mg/dL 0.20-1.00 [facility] Comment on above: For patients on eltr ombopag therapy, use of Dimension Gould TBIL is not recommended. Chloride [Moles/Vol] 102 mmol/L 98-107 [facility] Cholesterol [Mass/Vol] 213 mg/dL <200 [facility] Comment on above: <200 mg/dL Desirable 200-240 mg/dL Borderline >240 mg/dL High Risk Glucose [Mass/Vol] 260 mg/dL 74-106 [facility] Comment on above: Glucose result great er than or equal to 200 mg/dLsuggests DIABETES MELLITUS per A.D.A. criteria. Potassium [Moles/Vol] 3.5 mmol/L 3.5-5.1 [facility] Protein [Mass/Vol] 7.5 g/dL 6.4-8.2 [facility] Sodium [Moles/Vol] 137 mmol/L 136-145 [facility] Triglyceride [Mass/Vol] 884 mg/dL <199 [facility] Comment on above: The drugs N-Acetylcy steine and Metamizole may falsely depress this assay. TRIGLYCERIDE IS GREATER THAN 400 mg/dL. LDL RESULT IS INVALID AND WILL NOT BE REPORTED.Serum Triglycerides Reference Interval Normal <150 mg/dL Borderline high 150 - 199 mg/dL High 200 - 499 mg/dL Very High > or = 500 mg/dL Comprehensive Metabolic Prof ilon 12-10-2023 Albumin [Mass/Vol] 3.5 g/dL Normal 3.2-5.0 [facility] Comment on above: Performed By: #### L 501.080 #### [facility] [address] [place], [address] Albumin/Globulin [Mass ratio] 0.9 {ratio} Normal 0.9-2.4 [facility] Comment on above: Performed By: #### L 501.080 #### [facility] [address] [place], [address] ALK P 106 U/L Normal 45-117 [facility] Comment on above: Performed By: #### L 501.080 #### [facility] [address] [place], [address] ALT [Catalytic activity/Vol] 23 U/L Normal 13-56 [facility] Comment on above: Performed By: #### L 501.080 #### [facility] [address] [place], [address] AST [Catalytic activity/Vol] 13 U/L Low 15-37 [facility] Comment on above: Performed By: #### L 501.080 #### [facility] [address] [place], [address] Bilirubin [Mass/Vol] 0.20 mg/dL Normal 0.20-1.00 [facility] Comment on above: Result Comment: For patients on eltrombopag therapy, use of Dimension Gould TBIL is not recommended. Performed By: #### L 501.080 #### [facility] [address] [place], [address] BUN/CRE 15.3 RATIO Normal 10-20 [facility] Comment on above: Performed By: #### L 501.080 #### [facility] [address] [place], [address] CA,Total 8.4 mg/dL Low 8.5-10.1 [facility] Comment on above: Performed By: #### L 501.080 #### [facility] [address] [place], [address] Chloride [Moles/Vol] 102 mmol/L Normal 98-107 [facility] Comment on above: Performed By: #### L 501.080 #### [facility] [address] [place], [address] CO2 [Moles/Vol] 28.0 mmol/L Normal 21.0-32.0 [facility] Comment on above: Performed By: #### L 501.080 #### [facility] [address] [place], [address] Creatinine [Mass/Vol] 0.65 mg/dL Normal 0.55-1.02 [facility] Comment on above: Result Comment: The validity of the calculated GFR GFRAA in patients over 70 years has not been determined. Clinical correlation is essential. Performed By: #### L 501.080 #### [facility] [address] [place], [address] EST GFR - AA 123 mL/min Normal >60 [facility] Comment on above: Result Comment: Afri can Swazi GFR Calc Performed By: #### L 501.080 #### [facility] [address] [place], [address] GAP 7 Normal 5-15 [facility] Comment on above: Performed By: #### L 501.080 #### [facility] [address] [place], [address] GFR/1.73 sq M.predicted among non-blacks MDRD (S/P/Bld) [Vol rate/Area] 102 mL/min/{1.73_m2} Normal >60 [facility] Comment on above: Result Comment: Non- GFR Calc Performed By: #### L 501.080 #### [facility] [address] [place], [address] Globulin (S) [Mass/Vol] 4.0 g/dL Normal 2.2-4.2 [facility] Comment on above: Performed By: #### L 501.080 #### [facility] [address] [place], [address] Glucose [Mass/Vol] 260 mg/dL High 74-106 [facility] Comment on above: Result Comment: Gluc ose result greater than or equal to 200 mg/dL suggests DIABETES MELLITUS per A.D.A. criteria. Performed By: #### L 501.080 #### [facility] [address] [place], [address] Potassium [Moles/Vol] 3.5 mmol/L Normal 3.5-5.1 [facility] Comment on above: Performed By: #### L 501.080 #### [facility] [address] [place], [address] Sodium [Moles/Vol] 137 mmol/L Normal 136-145 [facility] Comment on above: Performed By: #### L 501.080 #### [facility] [address] [place], [address] T PROT 7.5 g/dL Normal 6.4-8.2 [facility] Comment on above: Performed By: #### L 501.080 #### [facility] [address] [place], [address] Urea nitrogen [Mass/Vol] 10 mg/dL Normal 7-18 [facility] Comment on above: Performed By: #### L 501.080 #### [facility] [address] [place], [address] Laboratory - Chemistry and C hemistry - challengeOrdered By: Esteban Noel on 12-10-2023 Albumin/Globulin [Mass ratio] 0.9 {ratio} 0.9-2.4 [facility] ALP [Catalytic activity/Vol] 106 U/L 45-117 [facility] ALT [Catalytic activity/Vol] 23 U/L 13-56 [facility] Cholesterol in HDL [Mass/Vol] 31 mg/dL >40 [facility] Comment on above: The drugs N-Acetylcy steine and Metamizole may falsely depress this assay. Reference Range HDL <40 mg/dL Low HDL Cholesterol HDL >or= 60 mg/dL High HDL Cholesterol CO2 [Moles/Vol] 28.0 mmol/L 21.0-32.0 [facility] Globulin (S) [Mass/Vol] 4.0 g/dL 2.2-4.2 [facility] Urea nitrogen/Creatinine [Mass ratio] 15.3 mg/mg 10- [facility] Lipid Profileon 12-10-2023 Cholesterol [Mass/Vol] 213 mg/dL High 200 [facility] Comment on above: Result Comment: <200 mg/dL Desirable 200-240 mg/dL Borderline >240 mg/dL High Risk Performed By: #### L 501.080 #### [facility] [address] [place], [address] Cholesterol in HDL [Mass/Vol] 31 mg/dL Low [facility] Comment on above: Result Comment: The drugs N-Acetylcysteine and Metamizole may falsely depress this assay. Reference Range HDL <40 mg/dL Low HDL Cholesterol HDL >or= 60 mg/dL High HDL Cholesterol Performed By: #### L 501.080 #### [facility] [address] [place], [address] LDL TNP Normal 0-130 [facility] Comment on above: Performed By: #### L 501.080 #### [facility] [address] [place], [address] Triglyceride [Mass/Vol] 884 mg/dL High [facility] Comment on above: Result Comment: The drugs N-Acetylcysteine and Metamizole may falsely depress this assay. TRIGLYCERIDE IS GREATER THAN 400 mg/dL. LDL RESULT IS INVALID AND WILL NOT BE REPORTED. Serum Triglycerides Reference Interval Normal <150 mg/dL Borderline high 150 - 199 mg/dL High 200 - 499 mg/dL Very High > or = 500 mg/dL Performed By: #### L 501.080 #### [facility] [address] [place], [place], [address] VLDL TNP Normal 5-40 [facility] Comment on above: Performed By: #### L 501.080 #### [facility] [address] [place], [place], [id number] No Panel InformationOrdered By: Esteban Noel on 12-10-2023 Estimated GFR (MDRD) Amer 123 mL/min >60 [facility] Comment on above: GFR Calc Estimated GFR (MDRD) Non-Af Amer 102 mL/min >60 [facility] Comment on above: Non- GFR Calc LDL Cholesterol [facility] Comment on above: Test not performed VLDL Cholesterol [facility] Comment on above: Test not performed Serum or plasma calcium jesus urement (mass/volume)Ordered By: Esteban Noel on 12-10-2023 Calcium [Mass/Vol] 8.4 mg/dL 8.5-10.1 [facility] Serum or plasma creatinine m easurement (mass/volume)Ordered By: Esteban Noel on 12-10-2023 Creatinine [Mass/Vol] 0.65 mg/dL 0.55-1.02 [facility] Comment on above: The validity of the calculated GFR & GFRAA in patients over 70 years has not been determined. Clinical correlation is essential. Serum or plasma urea nitroge n measurement (mass/volume)Ordered By: Esteban Noel on 12-10-2023 Urea nitrogen [Mass/Vol] 10 mg/dL 03-10 [facility] Thin prep Papanicolaou smear with manual screeningOrdered By: Esteban Noel on 12-10-2023 Thin prep Papanicolaou smear with manual screening 3.5 g/dL 3.2-5.0 [facility] Thin prep Papanicolaou smear with manual screening 13 U/L 15-37 [facility] Thin prep Papanicolaou smear with manual screening 7 5-15 [facility] Absolute lymphocyte countOrd ered By: Liu Graham on 10-16-2023 Lymphocytes Auto (Unsp spec) [#/Vol] 3.38 10*3/uL 0.83-4.51 [facility] Automated lymphocyte count a s percentage of total leukocytesOrdered By: Liu Graham on 10-16-2023 Lymphocytes/100 WBC Auto (Unsp spec) 31.6 % 19-41 [facility] Basophil percentageOrdered B y: Liu Graham on 10-16-2023 Basophils/100 WBC (Bld) 0.5 % 0-1 [facility] Chloride [Moles/Vol] 104 mmol/L 98-107 [facility] Eosinophils/100 WBC (Bld) 0.7 % 0-5 [facility] Glucose [Mass/Vol] 249 mg/dL 74-106 [facility] Comment on above: Glucose result great er than or equal to 200 mg/dLsuggests DIABETES MELLITUS per A.D.A. criteria. Hemoglobin (Bld) [Mass/Vol] 14.0 g/dL 12.0-15.0 [facility] Monocytes/100 WBC (Bld) 4.9 % 0-10 [facility] Neutrophils (Bld) [#/Vol] 6.6 10*3/uL 2.0-7.7 [facility] Neutrophils/100 WBC (Bld) 62.0 % 47-70 [facility] Potassium [Moles/Vol] 3.8 mmol/L 3.5-5.1 [facility] Sodium [Moles/Vol] 138 mmol/L 136-145 [facility] WBC (Bld) [#/Vol] 10.7 10*3/uL 4.4-11.0 [facility] Determination of erythrocyte mean corpuscular volume (MCV)Ordered By: Liu Graham on 10-16-2023 MCV (RBC) [Entitic vol] 83.0 fL 81-99 [facility] Erythrocyte distribution wid th ratioOrdered By: Liu Graham on 10-16-2023 Erythrocyte distribution width (RBC) [Ratio] 12.6 % 11.6-14.6 [facility] Erythrocyte distribution wid th standard deviationOrdered By: Liu Graham on 10-16-2023 Erythrocyte distribution width (RBC) [Entitic vol] 37.5 fL 35.1-43.9 [facility] Hematocrit Auto (Bld) [Volum e fraction]Ordered By: Liu Graham on 10-16-2023 Hematocrit (Bld) [Volume fraction] 42.1 % 37-47 [facility] Immature granulocytes/100 WB C Auto (Bld)Ordered By: Liu Graham on 10-16-2023 Immature granulocytes/100 WBC (Bld) 0.300 % 0.0-0.9 [facility] Comment on above: IG% - Immature Granu locytes (promyelocytes, myelocytes and metamyelocytes) > 1% indicates that a LEFT SHIFT is Present. Laboratory - Chemistry and C hemistry - challengeOrdered By: Liu Graham on 10-16-2023 CO2 [Moles/Vol] 27.0 mmol/L 21.0-32.0 [facility] Urea nitrogen/Creatinine [Mass ratio] 20.7 mg/mg 10-20 [facility] - Hematology and Cell countsOrdered By: Liu Graham on 10-16-2023 MCH (RBC) [Entitic mass] 27.6 pg 27.0-32.0 [facility] MCHC (RBC) [Mass/Vol] 33.3 g/dL 32-36 [facility] Nucleated RBC/100 WBC (Bld) [Ratio] 0 % 0-5 [facility] Platelet mean volume (Bld) [Entitic vol] 9.4 fL 6.2-12.0 [facility] Platelets (Bld) [#/Vol] 319 10*3/uL 150-450 [facility] No Panel InformationOrdered By: Liu Graham on 10-16-2023 Troponin I High Sensitivity < 3 pg/mL 3.0-54.0 [facility] Comment on above: Please Note: New Mary t Units and Gender Specific Reference Ranges. For more information see Policy Stat Procedure Gould High Sensitivity Troponin (TNIH) and attachments. Estimated Creatinine Clearance Calc 89.09 ml/min [facility] Estimated GFR (MDRD) Amer 118 mL/min >60 [facility] Comment on above: GFR Calc Estimated GFR (MDRD) Non-Af Amer 98 mL/min >60 [facility] Comment on above: Non- GFR Calc RBC Auto (Bld) [#/Vol]Ordere d By: Liu Graham on 10-16-2023 RBC (Bld) [#/Vol] 5.07 10*6/uL 4.2-5.4 [facility] Serum or plasma calcium jesus urement (mass/volume)Ordered By: Liu Graham on 10-16-2023 Calcium [Mass/Vol] 9.1 mg/dL 8.5-10.1 [facility] Serum or plasma creatinine m easurement (mass/volume)Ordered By: Liu Graham on 10-16-2023 Creatinine [Mass/Vol] 0.68 mg/dL 0.55-1.02 [facility] Comment on above: The validity of the calculated GFR & GFRAA in patients over 70 years has not been determined. Clinical correlation is essential. Serum or plasma urea nitroge n measurement (mass/volume)Ordered By: Liu Graham on 10-16-2023 Urea nitrogen [Mass/Vol] 14 mg/dL 7-18 [facility] Thin prep Papanicolaou smear with manual screeningOrdered By: Liu Graham on 10-16-2023 Thin prep Papanicolaou smear with manual screening 7 5-15 [facility] Basophil percentageOrdered B y: Esteban Noel on 09-01-2023 Chloride [Moles/Vol] 103 mmol/L 98-107 [facility] Cholesterol [Mass/Vol] 275 mg/dL <200 [facility] Comment on above: <200 mg/dL Desirable 200-240 mg/dL Borderline >240 mg/dL High Risk Glucose [Mass/Vol] 196 mg/dL 74-106 [facility] Comment on above: Fasting Glucose resu lt greater than or equal to 126 mg/dL suggests DIABETES MELLITUS per A.D.A. criteria. Potassium [Moles/Vol] 4.2 mmol/L 3.5-5.1 [facility] Comment on above: Slight Hemolysis, Re sult may be falsely increased. Sodium [Moles/Vol] 139 mmol/L 136-145 [facility] Triglyceride [Mass/Vol] 961 mg/dL <199 [facility] Comment on above: The drugs N-Acetylcy steine and Metamizole may falsely depress this assay. TRIGLYCERIDE IS GREATER THAN 400 mg/dL. LDL RESULT IS INVALID AND WILL NOT BE REPORTED.Serum Triglycerides Reference Interval Normal <150 mg/dL Borderline high 150 - 199 mg/dL High 200 - 499 mg/dL Very High > or = 500 mg/dL Laboratory - Chemistry and C hemistry - challengeOrdered By: Esteban Noel on 09-01-2023 CO2 [Moles/Vol] 27.0 mmol/L 21.0-32.0 [facility] Urea nitrogen/Creatinine [Mass ratio] 28.4 mg/mg 10-20 [facility] No Panel InformationOrdered By: Esteban Noel on 09-01-2023 Estimated GFR (MDRD) Amer 137 mL/min >60 [facility] Comment on above: GFR Calc Estimated GFR (MDRD) Non-Af Amer 113 mL/min >60 [facility] Comment on above: Non- GFR Calc Urine Microalbumin/Creatinine Ratio 22.5 mg/g CRE <30 [facility] Serum or plasma calcium jesus urement (mass/volume)Ordered By: Esteban Noel on 09-01-2023 Calcium [Mass/Vol] 9.1 mg/dL 8.5-10.1 [facility] Serum or plasma cholesterol in HDL measurement (mass/volume)Ordered By: Esteban Noel on 09-01-2023 Cholesterol in HDL [Mass/Vol] 36 mg/dL >40 [facility] Comment on above: The drugs N-Acetylcy steine and Metamizole may falsely depress this assay. Reference Range HDL <40 mg/dL Low HDL Cholesterol HDL >or= 60 mg/dL High HDL Cholesterol Serum or plasma cholesterol in VLDL measurement (mass/volume)Ordered By: Esteban Noel on 09-01-2023 Cholesterol in VLDL [Mass/Vol] [facility] Comment on above: Test not performed Serum or plasma creatinine m easurement (mass/volume)Ordered By: Esteban Noel on 09-01-2023 Creatinine [Mass/Vol] 0.60 mg/dL 0.55-1.02 [facility] Comment on above: The validity of the calculated GFR & GFRAA in patients over 70 years has not been determined. Clinical correlation is essential. Serum or plasma low density lipoprotein (LDL) cholesterol measurement (mass/volume)Ordered By: Esteban Noel on 09-01-2023 Cholesterol in LDL [Mass/Vol] [facility] Comment on above: Test not performed Serum or plasma urea nitroge n measurement (mass/volume)Ordered By: Esteban Noel on 09-01-2023 Urea nitrogen [Mass/Vol] 17 mg/dL 7-18 [facility] Thin prep Papanicolaou smear with manual screeningOrdered By: Esteban Noel on 09-01-2023 Thin prep Papanicolaou smear with manual screening 9 5-15 [facility] Thin prep Papanicolaou smear with manual screening 20.3 mg/L NO RANGE EST. [facility] Urine creatinine measurement (mass/volume)Ordered By: Esteban Noel on 09-01-2023 Creatinine (U) [Mass/Vol] 90.30 mg/dL NO RANGE EST. [facility] Whole blood hemoglobin A1c/t otal hemoglobin ratio (mass fraction)Ordered By: Esteban Noel on 09-01-2023 HbA1c (Bld) [Mass fraction] 8.5 % 3.8-5.6 [facility] Comment on above: Normal < 5.7 % Predi abetic 5.7 - 6.4 % Diabetic >or= 6.5 % Please note range changes. Basophil percentageOrdered B y: Esteban Noel on 05-29-2023 Chloride [Moles/Vol] 97 mmol/L 98-107 [facility] Cholesterol [Mass/Vol] 239 mg/dL <200 [facility] Comment on above: <200 mg/dL Desirable 200-240 mg/dL Borderline >240 mg/dL High Risk Glucose [Mass/Vol] 444 mg/dL 74-106 [facility] Comment on above: Glucose result great er than or equal to 200 mg/dLsuggests DIABETES MELLITUS per A.D.A. criteria. Potassium [Moles/Vol] 4.2 mmol/L 3.5-5.1 [facility] Sodium [Moles/Vol] 133 mmol/L 136-145 [facility] Triglyceride [Mass/Vol] 863 mg/dL <199 [facility] Comment on above: The drugs N-Acetylcy steine and Metamizole may falsely depress this assay. TRIGLYCERIDE IS GREATER THAN 400 mg/dL. LDL RESULT IS INVALID AND WILL NOT BE REPORTED.Serum Triglycerides Reference Interval Normal <150 mg/dL Borderline high 150 - 199 mg/dL High 200 - 499 mg/dL Very High > or = 500 mg/dL Laboratory - Chemistry and C hemistry - challengeOrdered By: Esteban Noel on 05-29-2023 CO2 [Moles/Vol] 30.0 mmol/L 21.0-32.0 [facility] Urea nitrogen/Creatinine [Mass ratio] 19.8 mg/mg 06-12 [facility] No Panel InformationOrdered By: Esteban Noel on 05-29-2023 Estimated GFR (MDRD) Amer 113 mL/min >60 [facility] Comment on above: GFR Calc Estimated GFR (MDRD) Non-Af Amer 93 mL/min >60 [facility] Comment on above: Non- GFR Calc Serum or plasma calcium jesus urement (mass/volume)Ordered By: Esteban Noel on 05-29-2023 Calcium [Mass/Vol] 9.1 mg/dL 8.5-10.1 [facility] Serum or plasma cholesterol in HDL measurement (mass/volume)Ordered By: Esteban Noel on 05-29-2023 Cholesterol in HDL [Mass/Vol] 35 mg/dL >40 [facility] Comment on above: The drugs N-Acetylcy steine and Metamizole may falsely depress this assay. Reference Range HDL <40 mg/dL Low HDL Cholesterol HDL >or= 60 mg/dL High HDL Cholesterol Serum or plasma cholesterol in VLDL measurement (mass/volume)Ordered By: Esteban Noel on 05-29-2023 Cholesterol in VLDL [Mass/Vol] [facility] Comment on above: Test not performed Serum or plasma creatinine m easurement (mass/volume)Ordered By: Esteban Noel on 05-29-2023 Creatinine [Mass/Vol] 0.71 mg/dL 0.55-1.02 [facility] Comment on above: The validity of the calculated GFR & GFRAA in patients over 70 years has not been determined. Clinical correlation is essential. Serum or plasma low density lipoprotein (LDL) cholesterol measurement (mass/volume)Ordered By: Esteban Noel on 05-29-2023 Cholesterol in LDL [Mass/Vol] [facility] Comment on above: Test not performed Serum or plasma urea nitroge n measurement (mass/volume)Ordered By: Esteban Noel on 05-29-2023 Urea nitrogen [Mass/Vol] 14 mg/dL 03-10 [facility] Thin prep Papanicolaou smear with manual screeningOrdered By: Esteban Noel on 05-29-2023 Thin prep Papanicolaou smear with manual screening 6 5-15 [facility] Bacteria identified Cx Nom ( Wound)Ordered By: Maria Barroso on 04-20-2023 Wound Culture Meth. resistant Stap h. aureus [facility] Gram stain for investigation of transfusion reactionOrdered By: Maria Barroso on 04-20-2023 Microscopic observation Gram stain Nom (Unsp spec) [facility] Basophil percentageon 2021 C. trachomatis DNA JIMMY+probe Ql (Unsp spec) Negative Negative [facility] Work Phone: HIV 1 and HIV-2 antibody ass ay with HIV-1 p24 antigen detectionon 11-15-2021 HIV 1+2 Ab+HIV1 p24 Ag IA Ql Non-Reactive Nonreactive [facility] Work Phone: Neisseria gonorrhoeae detect ion by PCRon 11-15-2021 N. gonorrhoeae DNA JIMMY+probe Ql (Cervical mucus) Negative Negative [facility] Work Phone: No Panel Informationon 11-15 Herpes Simplex Virus I IgG Antibody 12.30 index [facility] Work Phone: Comment on above: Negative <0.91 Equiv ocal 0.91 - 1.09 Positive >1.09 Note: Negative indicates no antibodies detected to HSV-1. Equivocal may suggest early infection. If clinically appropriate, retest at later date. Positive indicates antibodies detected to HSV-1. Serum Treponema species anti body detectionon 11-15-2021 Treponema sp Ab Ql (S) Non-Reactive [facility] Work Phone: Serum herpes simplex virus 2 antibody assay by immunoassay (units/volume)on 11-15-2021 HSV 2 Ab IA Qn (S) 7.55 index [facility] Work Phone: Comment on above: Negative <0.91 Equiv ocal 0.91 - 1.09 Positive >1.09 Note: Negative indicates no HSV-2 antibodies detected. Positive indicates HSV-2 antibodies detected. Equivocal and low positive HSV-2 screens (Index 0.91-5.00) may be false positive and are reflexed to supplemental testing in accordance with CDC guidelines.Performed at: - [facility] [id number] Director: Manjinder Sandy PhD, Phone: [phone] Absolute lymphocyte counton 11-14-2021 Lymphocytes Auto (Unsp spec) [#/Vol] 0.88 10*3/uL 0.83-4.51 [facility] Work Phone: Basophil percentageon 2021 Basophil percentage 0 SEEN /hpf [facility] Work Phone: Basophils/100 WBC (Bld) 0.1 % 0-1 [facility] Work Phone: Bilirubin [Mass/Vol] 0.60 mg/dL 0.20-1.00 [facility] Work Phone: Comment on above: For patients on eltr ombopag therapy, use of Dimension [facility] TBIL is not recommended. Chloride [Moles/Vol] 97 mmol/L 98-107 [facility] Work Phone: Eosinophils/100 WBC (Bld) 0.1 % 0-5 [facility] Work Phone: Glucose [Mass/Vol] 256 mg/dL 74-106 [facility] Work Phone: Comment on above: Glucose result great er than or equal to 200 mg/dLsuggests DIABETES MELLITUS per A.D.A. criteria. Neutrophils (Bld) [#/Vol] 5.6 10*3/uL 2.0-7.7 [facility] Work Phone: Neutrophils/100 WBC (Bld) 82.6 % 47-70 [facility] Work Phone: Potassium [Moles/Vol] 3.4 mmol/L 3.5-5.1 [facility] Work Phone: Protein [Mass/Vol] 7.8 g/dL 6.4-8.2 [facility] Work Phone: Sodium [Moles/Vol] 134 mmol/L 136-145 [facility] Work Phone: WBC (Bld) [#/Vol] 6.8 10*3/uL 4.4-11.0 [facility] Work Phone: Beta hCG serum qualon 2021 Beta HCG ( test) Ql Negative [facility] Work Phone: Bilirubin Test strip Ql (U)o n 11-14-2021 Bilirubin Ql (U) Negative Negative [facility] Work Phone: Blood erythrocytes count (nu mber/volume)on 11-14-2021 RBC (Bld) [#/Vol] 4.82 10*6/uL 4.2-5.4 [facility] Work Phone: Blood hemoglobin measurement (mass/volume)on 11-14-2021 Hemoglobin (Bld) [Mass/Vol] 14.1 g/dL 12.0-15.0 [facility] Work Phone: Blood lymphocytes/100 leukoc yteson 11-14-2021 Lymphocytes/100 WBC (Bld) 13.0 % 19-41 [facility] Work Phone: Blood monocytes/100 leukocyt eson 11-14-2021 Monocytes/100 WBC (Bld) 3.9 % 0-10 [facility] Work Phone: Blood platelet mean volumeon 11-14-2021 Platelet mean volume (Bld) [Entitic vol] 9.5 fL 6.2-12.0 [facility] Work Phone: Determination of erythrocyte mean corpuscular volume (MCV)on 11-14-2021 MCV (RBC) [Entitic vol] 84.9 fL 81-99 [facility] Work Phone: Hematocrit Auto (Bld) [Volum e fraction]on 11-14-2021 Hematocrit (Bld) [Volume fraction] 40.9 % 37-47 [facility] Work Phone: Ketones Test strip Ql (U)on 03-24-2022 Ketones Ql (U) 5 mg/dl Negative [facility] Work Phone: Laboratory - Chemistry and C hemistry - challengeon 11-14-2021 ALP [Catalytic activity/Vol] 185 U/L 45-117 [facility] Work Phone: ALT [Catalytic activity/Vol] 112 U/L 13-56 [facility] Work Phone: CO2 [Moles/Vol] 29.0 mmol/L 21.0-32.0 [facility] Work Phone: Globulin (S) [Mass/Vol] 4.0 g/dL 2.2-4.2 [facility] Work Phone: Lipase [Catalytic activity/Vol] 62 U/L 73-393 [facility] Work Phone: Urea nitrogen/Creatinine [Mass ratio] 21.0 mg/mg 10-20 [facility] Work Phone: Laboratory - Hematology and Cell countson 11-14-2021 Erythrocyte distribution width (RBC) [Entitic vol] 38.4 fL 35.1-43.9 [facility] Work Phone: Erythrocyte distribution width (RBC) [Ratio] 12.5 % 11.6-14.6 [facility] Work Phone: Immature granulocytes/100 WBC (Bld) 0.300 % 0.0-0.9 [facility] Work Phone: Comment on above: IG% - Immature Granu locytes (promyelocytes, myelocytes and metamyelocytes) > 1% indicates that a LEFT SHIFT is Present. MCH (RBC) [Entitic mass] 29.3 pg 27.0-32.0 [facility] Work Phone: Nucleated RBC/100 WBC (Bld) [Ratio] 0 % 0-5 [facility] Work Phone: MCHC Auto (RBC) [Mass/Vol]on 11-14-2021 MCHC (RBC) [Mass/Vol] 34.5 g/dL 32-36 [facility] Work Phone: Mucus LM Ql (Urine sed)on Mucus Ql (Urine sed) 0 SEEN /hpf [facility] Work Phone: Nitrite Test strip Ql (U)on 11-14-2021 Nitrite Ql (U) Negative Negative [facility] Work Phone: No Panel Informationon 11-14 Estimated Creatinine Clearance Calc 81.22 ml/min [facility] Work Phone: Estimated GFR (MDRD) Amer 121 mL/min >60 [facility] Work Phone: Comment on above: GFR Calc Estimated GFR (MDRD) Non-Af Amer 100 mL/min >60 [facility] Work Phone: Comment on above: Non- GFR Calc Platelets bldon 11-14-2021 Platelets (Bld) [#/Vol] 254 10*3/uL 150-450 [facility] Work Phone: Protein Test strip Ql (U)on 11-14-2021 Protein Ql (U) 15 mg/dl Negative [facility] Work Phone: Serum or plasma albumin jesus urement (mass/volume)on 11-14-2021 Albumin [Mass/Vol] 3.8 g/dL 3.2-5.0 [facility] Work Phone: Serum or plasma albumin/glob ulin mass ratioon 11-14-2021 Albumin/Globulin [Mass ratio] 1.0 {ratio} 0.9-2.4 [facility] Work Phone: Serum or plasma calcium jesus urement (mass/volume)on 11-14-2021 Calcium [Mass/Vol] 8.7 mg/dL 8.5-10.1 [facility] Work Phone: Serum or plasma creatinine m easurement (mass/volume)on 11-14-2021 Creatinine [Mass/Vol] 0.67 mg/dL 0.55-1.02 [facility] Work Phone: Comment on above: The validity of the calculated GFR & GFRAA in patients over 70 years has not been determined. Clinical correlation is essential. Serum or plasma urea nitroge n measurement (mass/volume)on 11-14-2021 Urea nitrogen [Mass/Vol] 14 mg/dL 7-18 [facility] Work Phone: Squamous epithelial cells de tection in urine sediment by light microscopyon 11-14-2021 Epithelial cells.squamous LM Ql (Urine sed) 0-5 SEEN /hpf [facility] Work Phone: Thin prep Papanicolaou smear with manual screeningon 11-14-2021 Thin prep Papanicolaou smear with manual screening 161 U/L 15-37 [facility] Work Phone: Thin prep Papanicolaou smear with manual screening 8 5-15 [facility] Work Phone: Urine blood detectionon 10-23 RBC Ql (U) Negative Negative [facility] Work Phone: RBC Ql (U) 0 SEEN /hpf [facility] Work Phone: Urine clarityon 11-14-2021 Clarity (U) Sl. Cloudy Clear [facility] Work Phone: Urine color determinationon 11-14-2021 Color (U) Yellow Yellow [facility] Work Phone: Urine glucose detectionon Glucose Ql (U) 1000 mg/dl Normal [facility] Work Phone: Urine leukocyte esterase det ection by dipstickon 11-14-2021 Leukocyte esterase Test strip Ql (U) Negative Negative [facility] Work Phone: Urine pHon 11-14-2021 pH (U) 8.0 [pH] [facility] Work Phone: Urine sediment bacteria coun t by microscopy (number/high power field)on 11-14-2021 Bacteria LM.HPF (Urine sed) [#/Area] 0 /[HPF] None Seen [facility] Work Phone: Urine specific gravity measu rementon 11-14-2021 Specific gravity (U) [Rel density] 1.010 [facility] Work Phone: Urobilinogen Auto test strip Ql (U)on 11-14-2021 Urobilinogen Ql (U) 4 mg/dl Normal [facility] Work Phone: Absolute lymphocyte counton 08-08-2021 Lymphocytes Auto (Unsp spec) [#/Vol] 2.55 10*3/uL 0.83-4.51 [facility] Work Phone: Basophil percentageon 2020 Chloride [Moles/Vol] 99 mmol/L 98-107 [facility] Work Phone: Eosinophils/100 WBC (Bld) 0.7 % 0-5 [facility] Work Phone: Glucose [Mass/Vol] 351 mg/dL 74-106 [facility] Work Phone: Comment on above: Glucose result great er than or equal to 200 mg/dLsuggests DIABETES MELLITUS per A.D.A. criteria.Please note revised GLUCOSE reference range effective 2017. Neutrophils (Bld) [#/Vol] 4.6 10*3/uL 2.0-7.7 [facility] Work Phone: Potassium [Moles/Vol] 3.7 mmol/L 3.5-5.1 [facility] Work Phone: Comment on above: Slight Hemolysis, Re sult may be falsely increased. Sodium [Moles/Vol] 134 mmol/L 136-145 [facility] Work Phone: WBC (Bld) [#/Vol] 7.6 10*3/uL 4.4-11.0 [facility] Work Phone: Blood erythrocytes count (nu mber/volume)on 08-08-2021 RBC (Bld) [#/Vol] 5.01 10*6/uL 4.2-5.4 [facility] Work Phone: Blood hemoglobin measurement (mass/volume)on 08-08-2021 Hemoglobin (Bld) [Mass/Vol] 14.7 g/dL 12.0-15.0 [facility] Work Phone: Blood lymphocytes/100 leukoc yteson 08-08-2021 Lymphocytes/100 WBC (Bld) 33.4 % 19-41 [facility] Work Phone: Blood monocytes/100 leukocyt eson 08-08-2021 Monocytes/100 WBC (Bld) 5.1 % 0-10 [facility] Work Phone: Blood platelet mean volumeon 08-08-2021 Platelet mean volume (Bld) [Entitic vol] 9.9 fL 6.2-12.0 [facility] Work Phone: Determination of erythrocyte mean corpuscular volume (MCV)on 08-08-2021 MCV (RBC) [Entitic vol] 84.2 fL 81-99 [facility] Work Phone: Hematocrit Auto (Bld) [Volum e fraction]on 08-08-2021 Hematocrit (Bld) [Volume fraction] 42.2 % 37-47 [facility] Work Phone: INR in Blood by Coagulation assayon 08-08-2021 INR Coag (Bld) [Relative time] 1.0 {INR} [facility] Work Phone: Laboratory - Chemistry and C hemistry - challengeon 08-08-2021 CO2 [Moles/Vol] 25.0 mmol/L 21.0-32.0 [facility] Work Phone: Urea nitrogen/Creatinine [Mass ratio] 19.1 mg/mg 10-20 [facility] Work Phone: Laboratory - Coagulationon 10-09-2020 PT Coag (PPP) [Time] 12.2 s 11.7-14.9 [facility] Work Phone: Laboratory - Hematology and Cell countson 08-08-2021 Basophils/100 WBC (Unsp spec) 0.3 % 0-1 [facility] Work Phone: Erythrocyte distribution width (RBC) [Entitic vol] 36.4 fL 35.1-43.9 [facility] Work Phone: Erythrocyte distribution width (RBC) [Ratio] 12.0 % 11.6-14.6 [facility] Work Phone: Immature granulocytes/100 WBC (Bld) 0.300 % 0.0-0.9 [facility] Work Phone: Comment on above: IG% - Immature Granu locytes (promyelocytes, myelocytes and metamyelocytes) > 1% indicates that a LEFT SHIFT is Present. MCH (RBC) [Entitic mass] 29.3 pg 27.0-32.0 [facility] Work Phone: Neutrophils/100 WBC (Bld) 60.2 % 47-70 [facility] Work Phone: Nucleated RBC/100 WBC (Bld) [Ratio] 0 % 0-5 [facility] Work Phone: MCHC Auto (RBC) [Mass/Vol]on 08-08-2021 MCHC (RBC) [Mass/Vol] 34.8 g/dL 32-36 [facility] Work Phone: No Panel Informationon 08-08 D-Dimer Quantitative (PE/DVT) < 0.27 FEU/ug/m 0.27-0.49 [facility] Work Phone: Comment on above: NORMAL D-Dimer level (<0.50) indicates no DVT or PE. Estimated Creatinine Clearance Calc 87.31 ml/min [facility] Work Phone: Estimated GFR (MDRD) Amer 131 mL/min >60 [facility] Work Phone: Comment on above: GFR Calc Estimated GFR (MDRD) Non-Af Amer 108 mL/min >60 [facility] Work Phone: Comment on above: Non- GFR Calc Troponin I High Sensitivity 3 pg/mL 3.0-54.0 [facility] Work Phone: Comment on above: Please Note: New Mary t Units and Gender Specific Reference Ranges. For more information see Policy Stat Procedure Gould High Sensitivity Troponin (TNIH) and attachments. SARS-CoV-2 Antigen (Rapid) [facility] Work Phone: Platelets bldon 08-08-2021 Platelets (Bld) [#/Vol] 290 10*3/uL 150-450 [facility] Work Phone: Serum or plasma calcium jesus urement (mass/volume)on 08-08-2021 Calcium [Mass/Vol] 9.2 mg/dL 8.5-10.1 [facility] Work Phone: Serum or plasma creatinine m easurement (mass/volume)on 08-08-2021 Creatinine [Mass/Vol] 0.63 mg/dL 0.55-1.02 [facility] Work Phone: Comment on above: The validity of the calculated GFR & GFRAA in patients over 70 years has not been determined. Clinical correlation is essential. Serum or plasma urea nitroge n measurement (mass/volume)on 08-08-2021 Urea nitrogen [Mass/Vol] 12 mg/dL 7-18 [facility] Work Phone: Thin prep Papanicolaou smear with manual screeningon 08-08-2021 Thin prep Papanicolaou smear with manual screening 10 5-15 [facility] Work Phone: Vital Signs Date Time Vital Sign Value Performing Clinician Faci lity 09-17-2024 08:11-0500 Body temperature 97.8 [degF] Dr. Esteban Noel MD Work Phone: [facility] 09-17-2024 08:11-0500 Diastolic blood pressure 61 mm[Hg] Dr. Esteban Noel MD Work Phone: [facility] 09-17-2024 08:11-0500 Heart rate 89 /min Dr. Esteban Noel MD Work Phone: [facility] 09-17-2024 08:11-0500 Respiratory rate 16 /min Dr. Esteban Noel MD Work Phone: 7(857)456-830241 [place] [address] 09-17-2024 08:11-0500 SaO2% (BldA) [Mass fraction] 98 % Dr. Esteban Noel MD Work Phone: 9(841)844-149441 [place] [address] 09-17-2024 08:11-0500 Systolic blood pressure 104 mm[Hg] Dr. Esteban Noel MD Work Phone: 3(248)819-642941 [place] [address] 09-15-2024 19:06-0500 Body height 157.[address] Esteban Noel MD Work Phone: 4(513)912-725441 [place] [address] 09-15-2024 19:06-0500 Body mass index (BMI) [Ratio] 26.6 kg/m2 Dr. Esteban Noel MD Work Phone: 2(067)739-226641 [place] [address] 09-15-2024 19:06-0500 Body weight 66.[address] Esteban Noel MD Work Phone: 6(323)439-598441 [place] [address] 08-05-2024 12:55-0500 Body temperature 97.9 [degF] Dr. Esteban Noel MD Work Phone: 9(557)591-448941 [place] [address] 08-05-2024 12:55-0500 Diastolic blood pressure 73 mm[Hg] Dr. Esteban Noel MD Work Phone: 3(331)337-865541 [place] [address] 08-05-2024 12:55-0500 Heart rate 89 /min Dr. Esteban Noel MD Work Phone: 9(269)474-280041 [place] [address] 08-05-2024 12:55-0500 Respiratory rate 18 /min Dr. Esteban Noel MD Work Phone: 9([phone])571-665641 [place] [address] 08-05-2024 12:55-0500 SaO2% (BldA) [Mass fraction] 100 % Dr. Esteban Noel MD Work Phone: 4(383)712-707441 [place] [address] 08-05-2024 12:55-0500 Systolic blood pressure 117 mm[Hg] Dr. Esteban Noel MD Work Phone: 6(284)349-736741 [place] [address] 08-05-2024 11:05-0500 Body mass index (BMI) [Ratio] 28 kg/m2 Dr. Esteban Noel MD Work Phone: [facility] 08-05-2024 11:05-0500 Body weight 69.[address] Esteban Noel MD Work Phone: [facility] 10-16-2023 10:58-0500 Body temperature 98.3 [degF] [facility] 10-16-2023 10:58-0500 Diastolic blood pressure 69 mm[Hg] [facility] 10-16-2023 10:58-0500 Heart rate 95 /min [facility] 10-16-2023 10:58-0500 Respiratory rate 16 /min [facility] 10-16-2023 10:58-0500 SaO2% (BldA) [Mass fraction] 99 % [facility] 10-16-2023 10:58-0500 Systolic blood pressure 110 mm[Hg] [facility] 10-16-2023 07:52-0500 Body height 157.48 cm [facility] 10-16-2023 07:52-0500 Body mass index (BMI) [Ratio] 27.1 kg/m2 [facility] 10-16-2023 07:52-0500 Body weight 67.4 kg [facility] 11-14-2021 17:13-0400 Diastolic blood pressure 66 mm[Hg] Dr. Esteban Noel Work Phone: [facility] Work Phone: 11-14-2021 17:13-0400 Heart rate 97 /min Dr. Esteban Noel Work Phone: [facility] Work Phone: 11-14-2021 17:13-0400 Respiratory rate 18 /min Dr. Esteban Noel Work Phone: [facility] Work Phone: 11-14-2021 17:13-0400 SaO2% (BldA) [Mass fraction] 97 % Dr. Esteban Noel Work Phone: [facility] Work Phone: 11-14-2021 17:13-0400 Systolic blood pressure 106 mm[Hg] Dr. Esteban Noel Work Phone: [facility] Work Phone: 11-14-2021 13:07-0400 Body temperature 97.8 [degF] Dr. Esteban Noel Work Phone: [facility] Work Phone: 11-14-2021 13:06-0400 Body height 157.[address] Esteban Noel Work Phone: [facility] Work Phone: 11-14-2021 13:06-0400 Body mass index (BMI) [Ratio] 25.6 kg/m2 Dr. Esteban Noel Work Phone: [facility] Work Phone: 11-14-2021 13:06-0400 Body weight 63.[address] Esteban Noel Work Phone: [facility] Work Phone: 08-08-2021 18:06-0500 Diastolic blood pressure 75 mm[Hg] Dr. Esteban Noel Work Phone: [facility] Work Phone: 08-08-2021 18:06-0500 Heart rate 83 /min Dr. Esteban Noel Work Phone: [facility] Work Phone: 08-08-2021 18:06-0500 Respiratory rate 18 /min Dr. Esteban Noel Work Phone: [facility] Work Phone: 08-08-2021 18:06-0500 SaO2% (BldA) [Mass fraction] 98 % Dr. Esteban Noel Work Phone: [facility] Work Phone: 08-08-2021 18:06-0500 Systolic blood pressure 113 mm[Hg] Dr. Esteban Noel Work Phone: [facility] Work Phone: 08-08-2021 15:44-0500 Body mass index (BMI) [Ratio] 26.5 kg/m2 Dr. Esteban Noel Work Phone: [facility] Work Phone: 08-08-2021 15:44-0500 Body temperature 95.8 [degF] Dr. Esteban Noel Work Phone: [facility] Work Phone: 08-08-2021 15:44-0500 Body weight 65.[address] Esteban Noel Work Phone: [facility] Work Phone: Encounters Encounter Date Encounter Type Care Provider Facility Start: 11-17-2024 End: 11-17-[address] Esteban Noel MD Work Phone: [facility] Work Phone: Start: 11-17-2024 End: 11-17-[address] Esteban Noel MD -Laboratory, [facility] Start: 11-17-2024 End: 11-17-2024 ambulatory Esteban Noel Facility:[facility] Start: 11-08-2024 End: 11-08-[address] Esteban Noel MD Work Phone: [facility] Work Phone: Start: 11-08-2024 End: 11-08-[address] Esteban Noel MD -Laboratory, [facility] Start: 11-08-2024 End: 11-08-2024 ambulatory Esteban Noel Facility:[facility] Start: 09-17-2024 Non-patient / Non-visit Dr. Brennan colindres [facility] Work Phone: Start: 09-16-2024 Non-patient / Non-visit Dr. Brennan colindres -[facility] Work Phone: Start: 09-15-2024 Non-patient / Non-visit Dr. Lilliam Hill MD -[facility] Work Phone: Start: 09-15-2024 End: 09-17-2024 ambulatory Ruben Sharlene Facility:[facility] Start: 09-15-2024 End: 09-17-2024 Evaluation and management of inpatient Dr. Brennan Mariano DO -Progressive Care Unit Work Phone: Start: 08-05-2024 End: 08-05-2024 Emergency department patient visit Dr. Jeff Parra MD -Emergency Department Work Phone: Start: 06-22-2024 End: 06-22-20[facility] Start: 05-11-2024 End: 05-11-2024 [facility] Start: 03-28-2024 End: 03-28-2024 [facility] Start: 12-10-2023 End: 12-10-2023 ambulatory [facility] Work Phone: Start: 12-10-2023 End: 12-10-2023 Patient encounter procedure [facility] Start: 12-10-2023 End: 12-10-2023 ambulatory [facility] Facility:[facility] Start: 10-16-2023 End: 10-16-2023 Emergency department patient visit [facility]Emergency Department Work Phone: Start: 09-01-2023 End: 09-01-2023 ambulatory [facility] Work Phone: Start: 09-01-2023 End: 09-01-2023 Patient encounter procedure [facility] Work Phone: Start: 05-29-2023 End: 05-29-2023 Patient encounter procedure [facility] Start: 04-20-2023 End: 04-20-2023 ambulatory [facility] Work Phone: Start: 04-20-2023 End: 04-20-2023 [facility] Start: 11-15-2021 End: 11-15-[address] Esteban Noel Work Phone: [facility], [facility] Start: 11-14-2021 End: 11-14-2021 Emergency department patient visit Dr. Esteban Noel Work Phone: [facility]Emergency Department Start: 08-29-2021 End: 08-29-[address] Esteban Noel Work Phone: [facility], [facility] Start: 08-08-2021 End: 08-08-2021 Emergency department patient visit Dr. Esteban Noel Work Phone: [facility]-Emergency Department Procedures Date Procedure Procedure Detail Performing Clinician Start: 11-17-2024 Polymerase chain thuy ction analysis Dr. Esteban Noel MD Work Phone: Start: 09-16-2024 CT of facial bones w ith contrast Dr. Esteban Noel MD Work Phone: Start: 10-16-2023 Plain chest X-ray Start: 04-20-2023 Investigation of transfusion reaction Start: 04-20-2023 Microbial culture, routine Start: 11-14-2021 Computed tomography of abdomen and pelvis with intravenous contrast Dr. Esteban Noel Work Phone: Start: 08-08-2021 Plain chest X-ray Dr. Carlos Noel Work Phone: Start: 08-08-2021 SARS-CoV-2 Antigen (Rapid) Dr. Esteban Noel Work Phone: Plan of Treatment Date Care Activity Detail Author Start: 09-17-2024 Patient discharge [facility] Start: 09-16-2024 [facility] Start: 09-15-2024 Following clinical p athway protocol [facility] Start: 09-15-2024 Assessment of risk o f venous thromboembolism [facility] Start: 09-15-2024 Care regimes management [facility] Start: 09-15-2024 Insertion of cathete r into peripheral vein [facility] Start: 09-15-2024 Notification of physician [facility] Start: 09-15-2024 Providing care accor ding to standard [facility] Start: 09-15-2024 Referral to service [facility] Start: 09-15-2024 End: 09-15-2024 [facility] Start: 09-15-2024 Admission procedure [facility] Start: 09-15-2024 Incision & drainage abscess simple/single I&D ABSCESS SIMPLE/SINGLE [facility] Start: 08-05-2024 [facility] Start: 10-16-2023 [facility] Start: 10-16-2023 [facility] Patient Education [facility] Work Phone: Patient referral [facility] Work Phone: Payers Date Payer Category Payer Self-pay [id number] 2023 Unknown [id number] Unknown [id number] Unknown [id number] Unknown [facility] [id number] Unknown [id number] 2.16.8 [id number] Unknown [id number] 2.16.8 [id number] Unknown [id number] 2.16.8 [id number] Unknown [id number] 2.16.8 [id number] Unknown [id number] 2.16.8 [id number] Unknown [id number] 2.16.8 [id number] Unknown [id number] 2.16.8 [id number] Unknown [id number] 2.16.8 [id number] Unknown [id number] 2.16.8 [id number] Unknown [id number] 2.16.8 [id number] Unknown [id number] 2.16.8 [id number] Social History Date Type Detail Facility [facility] Work Phone: Start: 11-14-2021 End: 10-16-2023 Tobacco smoking status NHIS Unknown if ever smoked [facility] Start: 1975 Sex Assigned At Female [facility] Start: 09-15-2024 [facility] Start: 11-17-2024 End: 11-22-2024 Sex Female (finding) [facility] Goals Date Patient Goal Desired Activity /State Functional Status Date Assessment Result Facility 09-17-2024 Functional status Ambulates;Up ad susan [facility] Work Phone: Mental Status Date Assessment Result Facility 09-16-2024 Cognitive function Voice/Name [facility] Work Phone: 10-16-2023 Cognitive function Level Of Cons ciousness Awake;Alert;Appropriate;Follow s Commands [facility] Work Phone: 08-08-2021 Cognitive function Awake;Alert;A ppropriate;Follow s Commands [facility] Work Phone: Discharge summary note 09-17-2024 Note Date & Type Note Facility 09-17-2024 Note [facility] Medical Records Department [address] [place] [address] Discharge Summary 09/17/24 1044 MR#: [id number] Acct: [id number] Name: FREDDY SURESH Rep #: [id number] : 1975 48 From: Brennan Mariano DO PCP: Dr. Esteban Noel MD Status:ADM MIKI Location: [place] [address] Providers Date of Admission: 09/15/24 Primary Care Physician: Dr. Esteban Noel MD Reason For Visit: LEFT UPPER LIP ABSCESS Diagnosis Discharge Diagnosis (1) Hyperglycemia due to diabetes mellitus: Status: Acute Code(s): E11.65 - Type 2 diabetes mellitus with hyperglycemia (2) Abscess of lip: Status: Acute Code(s): K13.0 - Diseases of lips (3) Hypercholesterolemia: Status: Acute Code(s): E78.00 - Pure hypercholesterolemia, unspecified (4) Hyponatremia: Status: Acute Code(s): E87.1 - Hypo-osmolality and hyponatremia Plan Abscess of lip Lanced at emergency department and cultures taken. Follow-up cultures. Vancomycin and cefazolin ordered. As needed oxycodone and morphine IV for pain. Labs reviewed showed leukocytosis. Trend CBC. ST showed soft tissue swelling overlying the left-sided mandible extending towards right suggestive of an inflammatory change. I suspect it was a dental source of infection given her poor dentition. Advise dental follow up as outpt. Improving with antibiotics. Discharge with cephalexin. Diabetes mellitus type II on long-term insulin hypoglycemia Blood glucose was not within goal. Reportedly on Ozempic. Basal insulin continued. Continue glimepiride. Reportedly recently prescribed Jardiance but has not picked up the prescription yet. Start Jardiance while at hospital. Accu-Chek correction scale insulin ordered Hyponatremia Likely secondary to hyperglycemia. Treat hyperglycemia. Trend BMP. Medications at Discharge Home Medications duloxetine 60 mg capsule,delayed release 60 mg PO QHS 09/15/24 empagliflozin 25 mg tablet (Jardiance) 25 mg PO DAILY 09/15/24 glimepiride 4 mg tablet 4 mg PO BID 09/15/24 insulin glargine 100 unit/mL (3 mL) subcutaneous pen (Lantus Solostar U-100 Insulin) 35 unit subcut QHS 09/15/24 omeprazole 40 mg capsule,delayed release 40 mg PO DAILY 09/15/24 cephalexin 500 mg capsule 500 mg PO Q8H #15 caps 09/17/24 Physical Exam Const Constitutional Narrative: Left lip swelling slightly diminished from the 24th. Indurated. No fluctuance. Poor dentition particularly on the left side. Weight / BMI Weight Weight: 66.2 kg Body Mass Index (BMI) 26.6 ABG / Lab / Microbiology Data 09/16/24 06:18 09/16/24 06:18 Laboratory: Laboratory Results - last 24 hr 09/16/24 06:18: Hemoglobin A1c 11.0 H 09/16/24 16:22: POC Glucose 317 H 09/16/24 20:23: POC Glucose 424 H 09/17/24 04:38: Vancomycin Trough 4.6 L 09/17/24 06:42: POC Glucose 121 H Radiography Diagnostic Testing: Radiology Impression Facial/Sinus 09/16/24 10:05 IMPRESSION: Soft tissue swelling overlying the left-sided mandible extending anteriorly into the right-sided midline suggestive of a inflammatory change. Mildly enlarged lymph nodes in the subcutaneous mental region. Electronically Signed: Jonnathan Beebe MD at 11:05 EST Reading Location ID and State: [facility] / [place] , Service support , D/C Instructions Discharge Diet: 2000 Calorie Control Diet DC O2, CPAP, BIPAP Needs Home O2 Discharge instructions: No Meaningful Use Info Meaningful Use Meaningful Use Diagnoses (Choose all that apply): None applicable Ischemic Stroke Statin Dosing Therapy Reference: STATIN DOSE THERAPY REFERENCE: * Patients > 75 years receive moderate or high dose statin therapy. * Patients 75 years or YOUNGER should receive HIGH intensity statin dose unless contraindicated. You will be required to document reason for non-treatment if statin daily dose does not meet guidelines. HIGH DOSE STATIN THERAPY DAILY Atorvastatin > than or = to 40 mg Rosuvastatin > than or = to 20 mg Amlodipine + Atorvastatin > than or = to 2.5/40 mg Ezetimibe + Simvastatin 10/80 mg Simvastatin 80mg Discharge Plan Admission Admit Date/Time: 09/15/24 18:08 Primary Reason for Your Visit: lip cellulitis. Attending Provider: Brennan Mariano Primary Care Provider: Esteban Noel Consulting Providers: [place] Instructions Additional Instructions / Restrictions: As we discussed, I feel that your infection of your lip (cellulitis) was likely due to your bad teeth on that side. Take the antibiotics as instructed. If your lip does get worse, notify your physician or return to the emergency room. Also did recommend that you follow-up with the dentist to have your teeth properly checked to help prevent anything like this in the futu (more content not included)... [facility] Evaluation note 09-15-2024 Note Date & Type Note Facility 09-15-2024 Evaluation note Diagnosis Onset Date Resolution Hyperglycemia due to diabetes mellitus acute September 15, 2024 6:08pm Abscess of lip resolved September 152024 6:08pm Hypercholesterolemia resolved James cali 2024 6:08pm Hyponatremia resolved August 6:08pm [facility] Work Phone: SARS-CoV RNA JIMMY+probe Ql (Unsp spec) 08-29-2021 Note Date & Type Note Facility 08-29-2021 SARS-CoV RNA JIMMY+ probe Ql (Unsp spec) [facility] Work Phone: Coronavirus 2019 (JIMMY) August 29, 2021 12:18pm Detected Not Detected Patients who have a positive COVID-19 test result may nowhave treatment options. Treatment options are available forpatients with mild to moderate symptoms and forhospitalized patients. Visit our website [email or web address] for resources andinformation.This nucleic acid amplification test was developed and itsperformance characteristics determined by [facility]. Nucleic acid amplification tests include RT-PCR and TMA. This test has not been FDA cleared orapproved. This test has been authorized by FDA under anEmergency Use Authorization (EUA). This test is onlyauthorized for the duration of time the declaration thatcircumstances exist justifying the authorization of theemergency use of in vitro diagnostic tests for detection [id number] virus and/or diagnosis of COVID-19 infectionunder section 564(b)(1) of the Act, 21 U.S.C. 360bbb-3(b)(1), unless the authorization is terminated or revokedsooner.When diagnostic testing is negative, the possibility of afalse negative result should be considered in the contextof a patient's recent exposures and the presence ofclinical signs and symptoms consistent with COVID-19. Anindividual without symptoms of COVID-19 and who is notshedding SARS-CoV-2 virus would expect to have a negative(not detected) result in this assay. Comment on above: Patients who have a positive COVID-19 test result may nowhave treatment options. Treatment options are available forpatients with mild to moderate symptoms and forhospitalized patients. Visit our website [email or web address] for resources andinformation.This nucleic acid amplification test was developed and itsperformance characteristics determined by [facility]. Nucleic acid amplification tests include RT-PCR and TMA. This test has not been FDA cleared orapproved. This test has been authorized by FDA under anEmergency Use Authorization (EUA). This test is onlyauthorized for the duration of time the declaration thatcircumstances exist justifying the authorization of theemergency use of in vitro diagnostic tests for detection [id number] virus and/or diagnosis of COVID-19 infectionunder section 564(b)(1) of the Act, 21 U.S.C. 360bbb-3(b)(1), unless the authorization is terminated or revokedsooner.When diagnostic testing is negative, the possibility of afalse negative result should be considered in the contextof a patient's recent exposures and the presence ofclinical signs and symptoms consistent with COVID-19. Anindividual without symptoms of COVID-19 and who is notshedding SARS-CoV-2 virus would expect to have a negative(not detected) result in this assay. Evaluation note Note Date & Type Note Facility Evaluation note No assessment information availa ble [facility] Work Phone: Hospital Discharge instructions Note Date & Type Note Facility Hospital Discharge instructions Additional Instructions Your labs are normal. No signs of heart attack. I think this is chest wall pain. Use Tylenol and Motrin should improve. Follow-up with your doctor if not improving or return if feeling a lot worse. [facility] Work Phone: Reason for referral (narrative) Note Date & Type Note Facility Reason for referral (narrative) No reason for referral information available [facility] Work Phone: Chief Complaint and Reason for Visit Chief Complaint STERNAL CHEST PAIN COVID TEST ABD PAIN Chief Complaint chest pain Chief Complaint Admit Date n/v/d August 05, 2024 11:04am LEFT UPPER LIP ABSCESS September 15 6:08pm LEFT UPPER LIP ABSCESS September 15 6:18pm LEFT UPPER LIP ABSCESS September 16 8:00am LEFT UPPER LIP ABSCESS September 17 10:44am Reason for Visit Admit Date Hyperglycemia due to diabetes mellitus J anuary 2024 6:08pm Abscess of lip September 15, 2024 6 :08pm Hypercholesterolemia September 15, 2024 6:08pm Hyponatremia September 15, 2024 6 :08pm Advance Directives No Advanced Directives Records Found Advance Directive Response Recorded Date/ Time Living Will No November 14, 2021 3:40pm Power of Primary Teacher No November 14 3:40pm Advance Directive Response Recorded Date/ Time Living Will No November 14, 2021 2:40pm Power of Primary Teacher No November 14 2:40pm Advance Directive Response Recorded Date/ Time Living Will No October 16 024 8:03am Power of Primary Teacher No October 16, 2023 8:03am Advance Directive Response Recorded Date/ Time Living Will No October 16 024 9:03am Power of Primary Teacher No October 16, 2023 9:03am Advance Directive Response Recorded Date/ Time Living Will No August 05 024 12:21pm Do you have a Healthcare Power of Primary Teacher? No August 05, 2024 12:21pm Living Will No September 15 8:13pm Do you have a Healthcare Power of Primary Teacher? No September 15, 2024 8:13pm Summary Purpose Family History No Family History Records Found Additional Source Comments Goals (unrecognized section and content) Goals may be documented in a n alternate sectionGoals may be documented in an alternate sectionGoals may be documented in an alternate sectionGoals may be documented in an alternate sectionGoals may be documented in an alternate section Care Teams (unrecognized sec tion and content) Team Status: Active Member Role Status Dates Dr. Esteban Noel MD Family Provider Active Dr. Esteban Noel MD Primary Care Provider Active Team Status: Inactive Member Role Status Dates Dr. Esteban Noel MD Primary Care Provider Active Dr. Maria Barroso MD Attending Provider, Referring P antione Active Team Status: Inactive Member Role Status Dates Dr. Esteban Noel MD Primary Care Provider, Attending Provider Active Team Status: Inactive Member Role Status Dates Dr. Esteban Noel MD Primary Care Provi richie, Attending Provider, Referring Provider Active Team Status: Inactive Member Role Status Dates Dr. Esteban Noel MD Primary Care Provider Active Dr. Liu Graham MD Emergency Provider Active Team Status: Inactive Member Role Status Dates Dr. Esteban Noel MD Primary Care Provider Active Dr. Liu Graham MD Attending Provider, Emergency Pro vider Active Team Status: Inactive Member Role Status Dates Dr. Esteban Noel MD Primary Care Provider Active Start: August 05, 2024 End: August 05, 2024 Dr. Jeff Parra MD Attending Provider Active Sta rt: August 05, 2024 End: August 05, 2024 Dr. Jeff Parra MD Emergency Provider Active Sta rt: August 05, 2024 End: August 05, 2024 Team Status: Inactive Member Role Status Dates Dr. Esteban Noel MD Primary Care Provider Active Start: September 15, 2024 End: September 17, 2024 Dr. Ruben Su DO Referring Provider Active Start : September 15, 2024 End: September 17, 2024 Dr. Ruben Su DO Emergency Provider Active Start : September 15, 2024 End: September 17, 2024 Dr. Silver Hill MD Admit Provider Active S tart: September 15, 2024 End: September 17, 2024 Dr. Silver Hill MD Other Provider Active S tart: September 15, 2024 End: September 17, 2024 Dr. Brennan Mariano DO Attending Provider Active Start: September 15, 2024 End: September 17, 2024 Team Status: Active Member Role Status Dates Dr. Esteban oNel MD Primary Care Provider Active Start: September 15, 2024 Dr. Ruben Su DO Referring Provider Active Start : September 15, 2024 Dr. Ruben Su DO Emergency Provider Active Start : September 15, 2024 Dr. Silver Hill MD Admit Provider Active S tart: September 15, 2024 Dr. Silver Hill MD Attending Provider Active Start: September 15, 2024 Dr. Silver Hill MD Other Provider Active S tart: September 15, 2024 Team Status: Active Member Role Status Dates Dr. Esteban Noel MD Primary Care Provider Active Start: September 16, 2024 Dr. Ruben Su DO Emergency Provider Active Start : September 16, 2024 Dr. Silver Hill MD Admit Provider Active S tart: September 16, 2024 Dr. Silver Hill MD Other Provider Active S tart: September 16, 2024 Dr. Brennan Mariano DO Attending Provider Active Start: September 16, 2024 Dr. Brennan Mariano DO Other Provider Active Star t: September 16, 2024 Team Status: Active Member Role Status Dates Dr. Esteban Noel MD Primary Care Provider Active Start: September 17, 2024 Dr. Ruben Su DO Emergency Provider Active Start : September 17, 2024 Dr. Silver Hill MD Admit Provider Active S tart: September 17, 2024 Dr. Silver Hill MD Other Provider Active S tart: September 17, 2024 Dr. Brennan Mariano DO Attending Provider Active Start: September 17, 2024 Dr. Brennan Mariano DO Other Provider Active Star t: September 17, 2024 Team Status: Inactive Member Role Status Dates Dr. Esteban Noel MD Primary Care Provider Active Start: November 08, 2024 End: November 08, 2024 Dr. Esteban Noel MD Attending Provider Active Start: November 08, 2024 End: November 08, 2024 Dr. Esteban Noel MD Referring Provider Active Start: November 08, 2024 End: November 08, 2024 Team Status: Inactive Member Role Status Dates Dr. Esteban Noel MD Primary Care Provider Active Start: November 17, 2024 End: November 17, 2024 Dr. Esteban Noel MD Attending Provider Active Start: November 17, 2024 End: November 17, 2024 Dr. Esteban Noel MD Referring Provider Active Start: November 17, 2024 End: November 17, 2024 INFORMATION SOURCE (unrecogn ized section and content) DATE CREATED AUTHOR 11/23/2024 [facility] FOR RECORDS PERTAINING TO PATIENTS WHO ARE OR HAVE BEEN ENROLLED IN A CHEMICAL DEPENDENCY/SUBSTANCEABUSE PROGRAM, SOME INFORMATION MAY BE OMITTED. This clinical summary was aggregated from multiple sources. Caution should be exercised in using it in the provision of clinical care. This summary normalizes information from multiple sources, and as a consequence, information in this document may materially change the coding, format and clinical context of patient data. In addition, data may be omitted in some cases. CLINICAL DECISIONS SHOULD BE BASED ON THE PRIMARY CLINICAL RECORDS. [facility]. provides no warranty or guarantee of the accuracy or completeness of information in this document.
== END | disposition home or self-care (01) ==
LOC: MFPLAB 10:14
PROVIDERS: PCP Family Medicine; Referring Provider Family Medicine; Visit Provider Family Medicine
DX: E11.40 Type 2 diabetes mellitus with diabetic neuropathy, unspecified (principal)
CPT/HCPCS: 36415; 80053; 80061; 82043; 82570

== ENCOUNTER 2025-05-03 09:20 | Emergency (ER) | payer OTHER, SELFPAY ==
[2025-05-03 09:21] VITALS: BP 136/76; PULSE 95; RESP 16; TEMP 36; O2SAT 99; BMI 29.2
--- NOTE | 2025-05-03 09:37 | EDS_ITS ---
HPI History of Present Illness Chief Complaint: General Illness Informant: patient Onset/Context/Timing Onset: Days Context: Gradual Onset Timing: Continuous Current Severity: Mild Maximum Severity: Mild Narrative Narrative: 49-year-old female history of diabetes and high cholesterol. She just felt achy and has not felt well last several days. Mild sternal discomfort constant for last 3 days. Also states she has bodyaches and some mild nausea. No vomiting no diarrhea. No cough no dysuria. No specific exertional chest pain. No cardiac history. No history of DVT or PE or risk factors. Denies any recent travel, surgery or immobilization. No leg pain or swelling. No hemoptysis. Prior similar symptoms: No Recent Illness/Hospitalization: No PFSH ON LICENSE OF [facility] Medical History Hypercholesterolemia Diabetes Home Medications ?Medication ?Instructions ?Recorded ?Last Taken ?Type duloxetine 60 mg capsule,delayed 60 mg PO QHS mood 09/12/24 History release empagliflozin 25 mg tablet 25 mg PO DAILY diabetes 09/12/24 History (Jardiance) glimepiride 4 mg tablet 4 mg PO BID diabetes 5 09/12/24 History insulin glargine 100 unit/mL (3 35 unit subcut QHS kiran betes 09/15/24 09/12/24
--- NOTE | 2025-05-03 09:37 | EX.ED.DYSGE1 ---
HPI History of Present Illness Chief Complaint: General Illness Informant: patient Onset/Context/Timing Onset: Days Context: Gradual Onset Timing: Continuous Current Severity: Mild Maximum Severity: Mild Narrative Narrative: 49-year-old female history of diabetes and high cholesterol. She just felt achy and has not felt well last several days. Mild sternal discomfort constant for last 3 days. Also states she has bodyaches and some mild nausea. No vomiting no diarrhea. No cough no dysuria. No specific exertional chest pain. No cardiac history. No history of DVT or PE or risk factors. Denies any recent travel, surgery or immobilization. No leg pain or swelling. No hemoptysis. Prior similar symptoms: No Recent Illness/Hospitalization: No PFSH PFSH Medical History Hypercholesterolemia Diabetes Home Medications ?Medication ?Instructions ?Recorded ?Last Taken ?Type duloxetine 60 mg capsule,delayed 60 mg PO QHS mood 09/15/24 09/12/24 History release empagliflozin 25 mg tablet 25 mg PO DAILY diabetes 09/15/24 09/12/24 History (Jardiance) glimepiride 4 mg tablet 4 mg PO BID diabetes 09/15/24 09/12/24 History insulin glargine 100 unit/mL (3 35 unit subcut QHS diabetes 09/15/24 09/12/24 History mL) subcutaneous pen (Lantus Solostar U-100 Insulin) omeprazole 40 mg capsule,delayed 40 mg PO DAILY acid reflux 09/15/24 09/12/24 History release cephalexin 500 mg capsule 500 mg PO Q8H #15 caps 09/17/24 Unknown Rx Allergy/AdvReac Type Severity Reaction Status Date / Time No Known Allergies Allergy Verified 05/03/25 09:22 Family History Other Diabetes Surgical History History of cholecystectomy Social History Smoking Status: Never smoker ROS ROS ED ROS Narrative Body aches. Malaise. Chest discomfort. Constitutional Constitutional ED: Denies chills or fever(s) Eyes Eyes: Denies blurry vision ENT ENT ED: Denies ear pain Cardiovascular Cardiovascular: Reports chest pain; Denies palpitations or racing heartbeat Respiratory/Chest Respiratory/Chest: Denies cough or dyspnea Gastrointestinal Gastrointestinal: Reports nausea; Denies abdominal pain, diarrhea or vomiting Genitourinary Genitourinary ED: Denies dysuria or hematuria Musculoskeletal Musculoskeletal: Denies arthralgias or back pain Integumentary Denies abscess Neurologic Neurologic: Denies headache(s) Psychiatric Psychiatric: Denies anxiety Endocrine Endocrinology: Denies cold intolerance Hematologic/Lymphatic Hematologic/Lymphatic: Reports none Allergic/Immunologic Allergic/Immunologic ED: Denies mouth swelling, tongue swelling or urticaria EXAM Physical Exam Narrative Exam Narrative: Well-appearing middle-aged female. Vital signs are stable afebrile. Pulse ox is 99% on room air no hypoxia. No distress. HEENT exam pupils round reactive light. Moist mucous membranes. Neck nontender no JVD. No lymphadenopathy. Back nontender. Lungs clear to auscultation bilaterally. Heart regular rhythm no murmur. Rate about 90. Chest wall and ribs she has mild sternal tenderness. There is no ecchymosis or bruising no redness or warmth. No crepitance. Abdomen is soft and nontender. No peritoneal signs. Moving all 4 extremities. 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 Dorsi plantarflexion intact. Equal symmetrical radial pulses. Calves are nontender without edema or cords. Neurologically patient is awake and alert. Answering questions and following commands. Normal motor strength. Benign exam. Const Vital Signs: 05/03/25 09:21 05/03/25 09:46 05/03/25 09:54 Temperature 96.8 F L Temperature Source Temporal Pulse Rate 95 Respiratory Rate 16 Respiratory Effort Normal Respiratory Pattern Normal Blood Pressure 136/76 H Blood Pressure Mean 96 Pulse Ox 99 100 Oxygen Delivery Method Room Air Room Air Positive well nourished and well developed; Negative for cachectic, contractures or unkempt General Appearance ED: well developed; Negative for unkempt, cachectic, contractures, diaphoretic or pallor Nutritional Appearance: Negative for cachectic HEENT Reports moist mucous membranes Eyes PERRL and EOMs intact bilaterally Neck no lymphadenopathy, supple and no JVD General: Negative for tenderness Chest Wall inspection of chest normal; Negative for palpation of chest normal Chest Narrative: Mild sternal tenderness to palpation. Normal appearance. Resp normal respiratory effort and clear to auscultation bilaterally Auscultation: Negative for rales, rhonchi, wheezes or diminished lung sounds Cardio regular rate, regular rhythm, S1 normal heart sound, S2 normal heart sound and no murmurs GI normal to inspection, nondistended, normoactive bowel sounds, non-tender, non-distended and no masses Auscultation: normoactive bowel sounds Palpation: soft; Negative for tender, guarding or rebound tenderness present Back/Spine no CVA tenderness General Back: Negative for CVA tenderness Cervical Spine: Negative for cervical spine tenderness Thoracic Spine / Upper Back: Negative for thoracic spinal tenderness or paraspinal muscle tenderness Lumbar Spine / Lower Back: Negative for lumbar spinal tenderness Extremity normal to inspection General Extremety ED: Negative for edema or tenderness General Extremity: Negative for edema Neuro oriented x3 and CN's II-XII intact bilaterally Sensorium / Orientation: alert Motor Exam: strength 5/5 throughout Psych mental status grossly normal Appearance: Negative for unkempt Skin no rashes or lesions noted and no wounds General Skin Exam: Negative for jaundice or pallor Lesions: No lesion noted Rashes: No rashes noted MDM MDM MDM Narrative Medical decision making narrative: 49-year-old female viral type symptoms. Atypical reproducible sternal chest discomfort. Due to her diabetes age and high cholesterol we will do a cardiac workup. Exam is benign. This may be a viral syndrome. Repeat exam at 11:31 AM unchanged. Patient's labs, EKG, chest x-ray and troponin were all unremarkable. Platelike is a viral syndrome. Pains been there for 3 days. I do not think she needs as 2-hour troponin. She will be discharged home with outpatient follow-up. Patient is comfortable to plan. She will follow-up with her PCP. They can discuss outpatient stress testing as needed History & Record Review Discussion w/independent historian: Patient Lab Data Attestation: I reviewed the patient's lab results. Lab results narrative: CBC normal. White count of 7. H&H 14 and 44. Platelets 271. Chemistries show a gap 16. BUN and creatinine 14 and 0.6. Glucose 199. Initial troponin 8. Labs: Laboratory Results - last 24 hr 05/03/25 09:52 WBC 7.2 RBC 5.25 Hgb 14.8 Hct 44.2 MCV 84.2 MCH 28.2 MCHC 33.5 RDW Std Deviation 40.8 RDW Coeff of Joseluis 13.2 Plt Count 271 MPV 9.5 Immature Gran % (Auto) 0.400 Neut % (Auto) 59.0 Lymph % (Auto) 34.2 [place] % (Auto) 4.8 Eos % (Auto) 1.2 Baso % (Auto) 0.4 Absolute Neuts (auto) 4.3 Absolute Lymphs (auto) 2.47 Nucleated RBC % 0 Sodium 139 Potassium 4.5 Chloride 103 Carbon Dioxide 20.4 L Anion Gap 16 H BUN 14 Creatinine 0.64 L Estim Creat Clear Calc 97.07 Est GFR (MDRD) Non-Af 107 BUN/Creatinine Ratio 21.4 H Glucose 199 H Calcium 9.7 Troponin T High Sens 8 Radiography Chest X-Ray - ED: Read by ED Physician, Read by Radiologist, Normal, Lungs, Mediastinum, Bony Structures, No Acute Disease and Chronic Changes Diagnostic Testing: Clinical Impression(s) from Imaging Studies Chest X-Ray 05/03/25 09:46 IMPRESSION: NO ACUTE FINDINGS. Reading Location: [facility] Chest x-ray, 2 views, AP and lateral, interpreted both by myself and the radiologist shows no acute abnormality. Normal cardiac silhouette. Normal lung mary. Normal mediastinum. Rhythm Strip Rhythm Strip: Sinus Rhythm Rate: 86 Ectopy: None EKG Initial EKG: Attestation: I personally reviewed and interpreted this EKG as follows: Interpretation: Sinus Rhythm and No Acute Injury Pattern Comments: Normal sinus rhythm rate 86 unchanged from prior EKG from last year. Prior EKG tracings: available for review Discharge Plan Triage Chief Complaint: General Illness ED Provider: Liu Graham Dx/Rx/DC Orders Prescriptions: No Action glimepiride 4 mg tablet 4 mg PO BID duloxetine 60 mg capsule,delayed release(DR/EC) 60 mg PO QHS Jardiance 25 mg tablet 25 mg PO DAILY omeprazole 40 mg capsule,delayed release(DR/EC) 40 mg PO DAILY insulin glargine [Lantus Solostar U-100 Insulin] 100 unit/mL (3 mL) insulin pen 35 unit subcut QHS cephalexin 500 mg capsule 500 mg PO Q8H Qty: 15 0RF Primary Care Provider: Esteban Noel Referrals: Esteban Noel MD [Primary Care Provider] - Print Language: Yakut
[2025-05-03 09:46] VITALS: O2SAT 100
--- NOTE | 2025-05-03 09:46 | RAD_ITS ---
PROCEDURE: CHEST PA AND LATERAL 05/03/2025 REASON FOR EXAM: CHEST PAIN TECHNIQUE: Procedure Code: RADCXR Modality: DX Procedure: CHEST PA AND LATERAL COMPARISON: Prior study dated October 16, 2023. FINDINGS: Hardware: None Heart: The heart size is normal. Mediastinum: The mediastinal contour is unremarkable. Lungs: The lungs are clear. Bones: Degenerative changes are identified within the thoracic spine. RAD/Chest PA and Lateral IMPRESSION: NO ACUTE FINDINGS. Reading Location: [facility]
[2025-05-03 10:05] LABS: Hematocrit 44.2 % (37-47); Hemoglobin 14.8 g/dL (12.0-15.0); Immature Granulocytes Count 0.030 X10^3/uL (0.0-0.0); Mean Corp Hgb Conc 33.5 g/dL (32-36); Mean Corpuscular Volume 84.2 fL (81-99); Mean Platelet Vol. 9.5 fl (6.2-12.0); NRBC Flagged by Analyzer 0 % (0-5); Platelet Count 271 K/mm3 (150-450); RBC Distribution Width CV 13.2 % (11.6-14.6); RBC Distribution Width SD 40.8 fl (35.1-43.9); Red Blood Count 5.25 M/mm3 (4.2-5.4); White Blood Count 7.2 K/mm3 (4.4-11.0)
[2025-05-03 10:46] LABS: Troponin T High Sensitivity 8 ng/L (<=14)
[2025-05-03 10:47] LABS: Anion Gap 16 (5-15); BUN 14 mg/dL (4-19); BUN/Creat Ratio 21.4 RATIO (10-20); Calcium,Total 9.7 mg/dL (7.6-11.0); Carbon Dioxide 20.4 mmol/L (21.0-32.0); Chloride 103 mmol/L (98-108); Estimated Creatinine Clearance 97.07 ml/min (50-250); Glucose 199 mg/dL (70-99); Potassium 4.5 mmol/L (3.3-5.1)
[2025-05-03 11:40] VITALS: BP 104/84; PULSE 85; RESP 16; TEMP 36.3; O2SAT 99
[2025-05-03 12:07] LABS: Troponin T High Sens 2 HR < 6 ng/L (<=14)
== END 2025-05-03 11:43 | disposition home or self-care (01) ==
PROVIDERS: Emergency Provider Emergency Medicine; PCP Family Medicine; Visit Provider Emergency Medicine
DX: B34.9 Viral infection, unspecified (principal); E11.9 Type 2 diabetes mellitus without complications
CPT/HCPCS: 71046; 80048; 84484; 85025; 93005; 99284; A4216

== ENCOUNTER 2025-08-04 09:59 | Emergency (ER) | payer OTHER, SELFPAY ==
[2025-08-04] VITALS (9 sets, daily range): BP systolic 111–130; BP diastolic 68–85; PULSE 92–103; RESP 18–20; TEMP 36.6–36.7; O2SAT 98–100; BMI 32.2
--- NOTE | 2025-08-04 10:12 | EKG12_ITS ---
Test Reason : STROKE Blood Pressure : */* mmHG Vent. Rate : 97 BPM Atrial Rate : 97 BPM P-R Int : 160 ms QRS Dur : 84 ms QT Int : 342 ms P-R-T Axes : 47 11 22 degrees QTcB Int : 434 ms Normal sinus rhythm Normal ECG Confirmed by SHAYNA HEREDIA, SILVANA ([id number]), video news editor SAILAJA GREEN ([id number]) on 08/07/2025 6:47:19 AM Referred By: Confirmed By: SILVANA CORRAL MD
--- NOTE | 2025-08-04 10:13 | EX.ED.VIS.HA ---
HPI History of Present Illness Chief Complaint: Headache Informant: patient and EMS Narrative Narrative: Patient is a 49-year-old female with a history of DM presenting with a severe headache, blurry vision, and left-sided numbness and weakness. - Reports waking up at 0400 yesterday with a severe headache on the right side, which worsened this morning. - Associated symptoms include blurry vision, nausea, and emesis. Denies any loss of vision. - Reports numbness and tingling in the left arm and left lower face, along with weakness in the left arm, starting around 0930 today. Started suddenly while at work. - Denies any issues with leg movement or walking. - Denies any problems with speech or understanding others. - Has a history of migraines but states this headache is more intense than previous episodes. Denies any previous migraines causing numbness on one side. - Takes insulin and oral medications for DM; denies taking antihypertensive medications. PFSH PFS Medical History Hypercholesterolemia Diabetes Home Medications ?Medication ?Instructions ?Recorded ?Last Taken ?Type duloxetine 60 mg capsule,delayed 60 mg PO QHS mood 09/15/24 09/12/24 History release empagliflozin 25 mg tablet 25 mg PO DAILY diabetes 09/15/24 09/12/24 History (Jardiance) glimepiride 4 mg tablet 4 mg PO BID diabetes 09/15/24 09/12/24 History insulin glargine 100 unit/mL (3 35 unit subcut QHS diabetes 09/15/24 09/12/24 History mL) subcutaneous pen (Lantus Solostar U-100 Insulin) omeprazole 40 mg capsule,delayed 40 mg PO DAILY acid reflux 09/15/24 09/12/24 History release cephalexin 500 mg capsule 500 mg PO Q8H #15 caps 09/17/24 Unknown Rx Allergy/AdvReac Type Severity Reaction Status Date / Time No Known Allergies Allergy Verified 08/04/25 10:16 Family History Other Diabetes Surgical History History of cholecystectomy Social History Smoking Status: Never smoker ROS ROS ED Constitutional Constitutional ED: Denies chills or fever(s) Eyes Eyes: Reports blurry vision; Denies diplopia ENT ENT ED: Denies ear pain or sore throat Cardiovascular Cardiovascular: Denies chest pain, palpitations or syncope Respiratory/Chest Respiratory/Chest: Denies cough or dyspnea Gastrointestinal Gastrointestinal: Reports nausea and vomiting; Denies abdominal pain or diarrhea Genitourinary Genitourinary ED: Denies dysuria or urinary frequency Musculoskeletal Musculoskeletal: Denies back pain or myalgias Integumentary Denies abscess or rash Neurologic Neurologic: Reports headache(s), paresthesias LUE (and face) and weakness Psychiatric Psychiatric: Denies anxiety or suicidal thoughts EXAM Physical Exam Const Vital Signs: 08/04/25 10:04 08/04/25 10:12 08/04/25 10:12 Temperature 98.0 F Temperature Source Oral Pulse Rate 100 100 Respiratory Rate 20 H 20 H Blood Pressure 113/72 113/72 Blood Pressure Mean 85 85 Pulse Ox 100 98 Oxygen Delivery Method Room Air Room Air Room Air 08/04/25 10:19 08/04/25 10:19 08/04/25 10:34 Temperature Temperature Source Pulse Rate 98 98 Respiratory Rate 19 H 20 H Blood Pressure 122/79 H 130/85 H Blood Pressure Mean 93 100 Pulse Ox 98 100 Oxygen Delivery Method Room Air Room Air Room Air 08/04/25 10:48 08/04/25 10:50 08/04/25 10:56 Temperature 98.0 F 97.9 F Temperature Source Oral Pulse Rate 99 100 99 Respiratory Rate 20 H 18 20 H Blood Pressure 115/68 113/72 115/68 Blood Pressure Mean 83 85 83 Pulse Ox 100 99 100 Oxygen Delivery Method Room Air Room Air 08/04/25 11:04 08/04/25 11:14 Temperature Temperature Source Pulse Rate 92 103 H Respiratory Rate 19 H 18 Blood Pressure 116/70 111/72 Blood Pressure Mean 85 85 Pulse Ox 100 100 Oxygen Delivery Method Room Air Room Air Positive well nourished and well developed General Appearance ED: well developed and NAD HEENT Reports normocephalic and moist mucous membranes atraumatic Eyes PERRL, EOMs intact bilaterally and conjunctivae normal Eyes Narrative: photophobia Neck no lymphadenopathy, supple and no meningeal signs Resp normal respiratory effort and clear to auscultation bilaterally Cardio regular rate, regular rhythm and no murmurs GI non-tender and non-distended Auscultation: normoactive bowel sounds Palpation: soft Back/Spine no CVA tenderness General Back: other FROM Extremity normal to inspection and full ROM General Extremety ED: Negative for edema, pulses abnormal or tenderness General Extremity: Negative for edema or pulses abnormal Neuro oriented x3 Neuro Narrative: Weakness left upper extremity but can resist gravity. Decree sensation left upper extremity. Decree sensation left lower face but no facial droop. Sensorium / Orientation: awake and alert Speech: speech normal Gait (Neuro): normal gait Psych mental status grossly normal Skin no rashes or lesions noted and no wounds Lesions: no lesions Rashes: no rashes NIHSS NIHSS Initial: 1a Level of Consciousness: 0 1b LOC Questions (Score 2 if aphasic/stupor): 0 1c LOC Commands (Only score 1st attempt): 0 2 Best Gaze (If aphasic, use reflexive mvmts.): 0 3 Visual: 0 4 Facial Palsy: 0 5 Motor Arm Right (UN = amputation/fusion): 0 5 Motor Arm Left: 1 6 Motor Leg Right: 0 6 Motor Leg Left: 0 7 Limb ataxia (Only + if out of proportion): 0 8 Sensory (Aphasia/stupor=0 or 1, coma=2): 1 9 Best Language: 0 10 Dysarthria (mute, coma=2, intubated=UN): 0 11 Extinction and Inattention (only scored if +): 0 Total Score: 2 MDM MDM MDM Narrative Medical decision making narrative: Assessment: The patient is a 49-year-old female with PMH of diabetes presenting for acute onset left arm and lower facial numbness accompanied by worsening right-sided headache. CT head shows an acute intracerebral hemorrhage in the right temporal-parietal white matter, explaining her focal neurologic deficits and consistent with hemorrhagic stroke. Blood pressure is 113/72 and other vitals are stable; GCS [address] evidence of elevated intracranial pressure, so no airway intervention or emergent blood-pressure control required at this time but will monitor pt closely until transfer. Plan: - Stroke alert activated; peripheral IV line established - Hemorrhagic stroke order set initiated - Administered Zofran for nausea - Arranged transfer to [facility] for higher-level neurosurgical care per patient preference; transported via helicopter EMS Diagnostics: - Non-contrast CT head: acute intracerebral hemorrhage in right temporal-parietal white matter; no signs of elevated intracranial pressure. Independently interpreted by Dino molina. Consultations: - [facility] team ? accepted transfer Reevaluation: Blood pressure under control last blood pressure 111/72, patient keenly alert, GCS 15. Less nauseated after Zofran. Portions of this note were generated using voice recognition software ([employer] Dictation). I have reviewed the contents and every effort has been made to ensure accuracy; however, inadvertent errors in grammar, spelling, punctuation, or word choice may occur, that were not noted before signing the document and should not alter the intended clinical meaning. History & Record Review Discussion w/independent historian: EMS personnel and Patient Lab Data Attestation: I reviewed the patient's lab results. Labs: Laboratory Results - last 24 hr 08/04/25 10:22 WBC 7.2 RBC 4.94 Hgb 14.1 Hct 42.6 MCV 86.2 MCH 28.5 MCHC 33.1 RDW Std Deviation 42.6 RDW Coeff of Joseluis 13.7 Plt Count 261 MPV 9.3 Immature Gran % (Auto) 0.100 Neut % (Auto) 53.5 Lymph % (Auto) 38.7 Yell % (Auto) 6.5 Eos % (Auto) 0.8 Baso % (Auto) 0.4 Absolute Neuts (auto) 3.9 Absolute Lymphs (auto) 2.80 Nucleated RBC % 0 PT 12.2 INR 0.9 APTT 23.3 L Sodium 138 Potassium 3.8 Chloride 103 Carbon Dioxide 26.5 Anion Gap 9 BUN 13 Creatinine 0.59 L Estim Creat Clear Calc 110.52 Est GFR (MDRD) Non-Af 109 BUN/Creatinine Ratio 21.2 H Glucose 156 H Calcium 8.9 Troponin T High Sens 7 D Radiography Diagnostic Testing: Clinical Impression(s) from Imaging Studies Brain CT 08/04/25 10:16 IMPRESSION: 1.3 cm x 0.8 cm intra cerebral hematoma in the posterior aspect of the right parieto-occipital lobe with mild degree of surrounding edema. Red Alert: Focal hematoma post R parietal occipital lobe. The critical findings in the findings and impression above were relayed directly by me by telephone to Dino Jones on 08/04/2025 at 10:27 am with readback verification. Reading Location: [facility] Rhythm Strip Rhythm Strip: Sinus Rhythm Rate: 100 Ectopy: None EKG Initial EKG: Attestation: I personally reviewed and interpreted this EKG as follows: Interpretation: Sinus Rhythm and No Acute Injury Pattern Comments: Nml axis & intervals; nml EKG Management Discussion w/another healthcare provider: Biomedical Specialist (stroke neurology [facility]; [facility] NICU fellow; [facility] CCM LIANE Mcclusky) and Radiologist Discharge Plan Triage Chief Complaint: Headache Other Complaint: Numb/Ting ED Provider: Dino Jones Dx/Rx/DC Orders Clinical Impression: Acute intracerebral hemorrhage, Paresthesia of left upper extremity, Left arm weakness Prescriptions: No Action glimepiride 4 mg tablet 4 mg PO BID duloxetine 60 mg capsule,delayed release(DR/EC) 60 mg PO QHS Jardiance 25 mg tablet 25 mg PO DAILY omeprazole 40 mg capsule,delayed release(DR/EC) 40 mg PO DAILY insulin glargine [Lantus Solostar U-100 Insulin] 100 unit/mL (3 mL) insulin pen 35 unit subcut QHS cephalexin 500 mg capsule 500 mg PO Q8H Qty: 15 0RF Primary Care Provider: Esteban Noel Referrals: Esteban Noel MD [Primary Care Provider, Family Practice] Print Language: Kyrgyz Disposition Disposition: Acute Care Hospital Stroke Documentation Questions Stroke Team Activated: Yes Was Patient considered for Endovascular Intervention?: No-CTA not indicated IV Thrombolytic Administered: No (hemorrhage on CT) Critical care time (excluding procedures): Discussing w/Consultants (36 min)
--- NOTE | 2025-08-04 10:16 | CT_ITS ---
PROCEDURE: STROKE BRAIN/HEAD WITHOUT CONT 08/04/2025 REASON FOR EXAM: NEURO DEFICIT, ACUTE, STROKE SUSPECTED TECHNIQUE: Procedure Code: CTBR.ST Modality: CT Procedure: STROKE BRAIN/HEAD WITHOUT CONT Coronal and Sagittal reconstruction series were provided. One or more dose reduction techniques were used (e.g., Automated exposure control, adjustment of the mA and/or kV according to patient size, use of iterative reconstruction technique. RADIATION DOSE SUMMARY: CTDlvol: 44.99 mGy DLP: 779.24 mGycm COMPARISON: None FINDINGS: Brain: There is a 1.3 cm by 0.8 cm intra cerebral hematoma in the posterior aspect of the right parieto-occipital lobe with a mild degree of edema. This may represent an hemorrhagic stroke. Punctate calcification in the basal ganglia bilaterally in keeping with the normal variant. CSF Spaces: Mild generalized cerebral atrophy Sinuses/Mastoids: Clear at visualized levels Bones: Unremarkable CT/STROKE Brain/Head without Cont IMPRESSION: 1.3 cm x 0.8 cm intra cerebral hematoma in the posterior aspect of the right pa rieto-occipital lobe with mild degree of surrounding edema. Red Alert: Focal hematoma post R parietal occipital lobe. The critical findings in the findings and impression above were relayed directl y by me by telephone to Dino Jones on 08/04/2025 at 10:27 am with readback verification. Reading Location: [place] [id number]
[2025-08-04 10:30] LABS: Hematocrit 42.6 % (37-47); Hemoglobin 14.1 g/dL (12.0-15.0); Immature Granulocytes Count 0.010 X10^3/uL (0.0-0.0); Mean Corp Hgb Conc 33.1 g/dL (32-36); Mean Corpuscular Volume 86.2 fL (81-99); Mean Platelet Vol. 9.3 fl (6.2-12.0); NRBC Flagged by Analyzer 0 % (0-5); Platelet Count 261 K/mm3 (150-450); RBC Distribution Width CV 13.7 % (11.6-14.6); RBC Distribution Width SD 42.6 fl (35.1-43.9); Red Blood Count 4.94 M/mm3 (4.2-5.4); White Blood Count 7.2 K/mm3 (4.4-11.0)
[2025-08-04 10:39] LABS: Partial Thromboplast Time 23.3 Seconds (24.1-36.2); Prothrombin Time (Protime)PT. 12.2 SECONDS (11.7-14.9)
[2025-08-04 10:58] LABS: Anion Gap 9 (5-15); BUN 13 mg/dL (4-19); BUN/Creat Ratio 21.2 RATIO (10-20); Calcium,Total 8.9 mg/dL (7.6-11.0); Carbon Dioxide 26.5 mmol/L (21.0-32.0); Chloride 103 mmol/L (98-108); Estimated Creatinine Clearance 110.52 ml/min (50-250); Glucose 156 mg/dL (70-99); Potassium 3.8 mmol/L (3.3-5.1); Troponin T High Sensitivity 7 ng/L (<=14)
--- NOTE | 2025-08-04 10:58 | CM.ED ---
Social Work Reason for visit: Stroke Alert SW met with patient after imaging completed, no family or friends present. Patient not feeling well at time of visit, SW let patient know would be available should she need anything during stay. Patient expressed understanding and appreciation. Yessy Rees, CREDIT ADMINISTRATOR, TRAVEL REGISTERED NURSE ONCOLOGY
== END 2025-08-04 11:15 | disposition short-term general hospital (02) ==
PROVIDERS: Emergency Provider Emergency Medicine; PCP Family Medicine; Visit Provider Emergency Medicine
DX: I61.1 Nontraumatic intracerebral hemorrhage in hemisphere, cortical (principal); G81.94 Hemiplegia, unspecified affecting left nondominant side; E11.9 Type 2 diabetes mellitus without complications; Z79.4 Long term (current) use of insulin; R29.702 NIHSS score 2; R20.2 Paresthesia of skin; Z79.84 Long term (current) use of oral hypoglycemic drugs
CPT/HCPCS: 70450; 80048; 84484; 85025; 85610; 85730; 93005; 96374; 99285; A4216; J2405